=== PATIENT | female | born 1960 | race Caucasian/White ===

== ENCOUNTER → 2018-04-04 09:37 | Outpatient (CLI) | payer OTHER, SELFPAY ==
[2018-04-04 09:43] LABS: Mucous, Urine 0 SEEN /hpf (<or=2+); Red Blood Cells-Urine 0 SEEN /hpf (0-5)
[2018-04-04 12:29] LABS: Absolute Lymphocyte Count 3.18 X10^3/ul (0.83-4.51); Absolute Neutrophil Count 5.9 X10^3/uL (2.0-7.7); Basophil# 0.04 X10^3/uL; Basophil% 0.4 % (0-1); Eosinophil# 0.52 X10^3/uL; Hematocrit 43.8 % (37-47); Hemoglobin 14.6 g/dl (12.0-15.0); Lymphocyte # 3.18 X10^3/ul (4.0); Lymphocyte % 30.4 % (19-41); Mean Corp Hgb Conc 33.3 g/gl (32-36); Mean Corpuscular Hgb 28.7 pg (27.0-32.0); Mean Corpuscular Volume 86.1 fL (81-99); Mean Platelet Vol. 10.8 fl (6.2-12.0); Monocyte# 0.75 X10^3/uL; Monocyte% 7.2 % (0-10); Neutrophil # 5.94 X10^3/uL (2.7-7.7); Neutrophil % 56.7 % (47-70); Platelet Count 339 K/mm3 (150-450); RBC Distribution Width CV 12.6 % (11.6-14.6); RBC Distribution Width SD 39.7 fl (35.1-43.9); Red Blood Count 5.09 M/mm3 (4.2-5.4); White Blood Count 10.5 K/mm3 (4.4-11.0)
[2018-04-04 12:35] LABS: POSITIVE COUNT NO; POSITIVE DIFFERENTIAL NO; POSITIVE MORPHOLOGY NO
[2018-04-04 12:41] LABS: Color, Urine Yellow (Yellow); Glucose, Dipstick 1000 mg/dl (Normal); Ketone-Dipstick 15 mg/dl (Negative); Leukocyte Esterase-Dipstick Negative /ul (Negative); Nitrite-Dipstick Negative (Negative); Occult Blood-Urine Negative /ul (Negative); Protein-Dipstick Negative (Negative); Specific Gravity, Urine 1.015 (1.002-1.030); Urine Bilirubin Dipstick Negative (Negative); Urine Clarity Clear (Clear); Urine Urobilinogen Normal (Normal)
[2018-04-04 12:42] LABS: Hemoglobin A1c 12.9 % (4.2-6.3)
[2018-04-04 12:46] LABS: ALB/GLOB Ratio 1.1 RATIO (0.9-2.4); AST(SGOT) 19 U/L (15-37); Alanine Aminotransfer ALT/SGPT 67 U/L (13-56); Albumin, Serum 3.9 g/dL (3.2-5.0); Alkaline Phosphatase 141 U/L (45-117); Anion Gap 10 (5-15); BUN 10 mg/dL (7-18); BUN/Creat Ratio 11.2 RATIO (10-20); Calcium,Total 9.1 mg/dL (8.5-10.1); Chloride 97 mmol/L (98-107); Cholesterol 293 mg/dL (200); Creatinine, Serum 0.89 mg/dL (0.55-1.02); EST Glomerular Filtration Rate 69 mL/min (>60); Est Glom Filt Rate - Afr Amer 84 mL/min (>60); Ferritin 195 ng/mL (8-252); Globulin 3.7 g/dL (2.2-4.2); Glucose 385 mg/dL (74-106); High Density Lipoprotein 48 mg/dL; Magnesium 2.3 mg/dL (1.6-2.6); Potassium 4.1 mmol/L (3.5-5.1); Protein, Total 7.6 g/dL (6.4-8.2); Sodium Level 133 mmol/L (136-145); Thyroid Stim Hormone (TSH) 1.33 uIU/mL (0.358-3.74); Triglycerides 271 mg/dL; Very Low Density Lipoprotein 54 mg/dL (5-40)
[2018-04-04 12:49] LABS: Squamous Epithelial Cells - UA 0-5 SEEN /hpf (5-10); White Blood Cells 0-5 SEEN /hpf (0-5)
[2018-04-04 12:50] LABS: Bacteria 1+ /hpf (None Seen)
[2018-04-04 13:11] LABS: Microalbumin,Random Urine 6.4 mg/L (NO RANGE EST.); Microalbumin:Creatinine Ratio 15.9 mg/g CRE (<30 mg/g CRE)
== END ==
PROVIDERS: Family Provider Family Medicine; PCP Family Medicine; Visit Provider Family Medicine
DX: E11.9 Type 2 diabetes mellitus without complications (principal); G47.62 Sleep related leg cramps
CPT/HCPCS: 36415; 80053; 80061; 81001; 82043; 82570; 82728; 83036; 83735; 84443; 85025

== ENCOUNTER 2018-04-06 02:42 | Emergency (ER) | payer OTHER, SELFPAY ==
[2018-04-06 02:43] VITALS: BP 148/87; PULSE 86; RESP 17; TEMP 36.6; O2SAT 96; BMI 29.0
[2018-04-06] MEDS: predniSONE 20 MG Tablet 60 MG PO (02:59)
--- NOTE | 2018-04-06 03:07 | ED.VISSUMM ---
- ER Visit Summary Date of Service: 04/06/18 Chief Complaint: Rash History of Present Illness: The patient is a 57 F presenting with rash ?2 days. Patient states she started having a rash on her right leg. The rash has now spread to her trunk and upper extremities. She denies any new exposures other than drinking a new diet tea. She has had no new medications. She denies new soaps, detergents, lotions. She complains of itching all over. She denies fever. Denies difficulty breathing or swallowing. Physical Examination: Vitals are stable. Patient is afebrile. Alert no acute distress. HEENT exam is unremarkable. No mucous membrane lesions Neck is supple. Lungs are clear and equal bilaterally. Heart is regular rate and rhythm. Abdomen is soft nontender nondistended. Extremities are unremarkable. Skin is warm and dry. Diffuse blanchable maculopapular rash trunk and upper extremities. No petechiae or purpura. No focal neurologic deficit. Remainder of exam is unremarkable. Emergency Department Course and Treatment: Patient is given prednisone. She is advised to monitor blood sugar while on prednisone. She is advised to follow-up with her primary care physician at scheduled appointment on Sunday. Advised to return to the ED for worsening complaints. Disposition: Discharge home Impression: Generalized rash This note was generated with [employer] dictation software. It may contain incorrect words, spelling, and punctuation that were not noted in review of the chart prior to signing ED Disposition - Plan for ED Patient: Chief Complaint: Rash Referrals: Tommy Rothman MD [Primary Care Provider] -
--- NOTE | 2018-04-06 03:13 | ED.DEP ---
ED Disposition - Plan for ED Patient: Chief Complaint: Rash Instructions: ED Dermatitis Contact Prescriptions: Prednisone [Deltasone] 20 mg PO DAILY #5 tablet Referrals: Tommy Rothman MD [Primary Care Provider] -
== END 2018-04-06 03:19 | disposition home or self-care (01) ==
LOC: ED 03:01
PROVIDERS: Emergency Provider Emergency Medicine; Family Provider Family Medicine; PCP Family Medicine
DX: R21 Rash and other nonspecific skin eruption (principal); E11.9 Type 2 diabetes mellitus without complications; Z79.84 Long term (current) use of oral hypoglycemic drugs
CPT/HCPCS: 99283

== ENCOUNTER → 2018-04-09 08:52 | Outpatient (CLI) | payer OTHER, SELFPAY ==
[2018-04-10 11:21] LABS: HEPATITIS B SURFACE AG Negative (Negative); Hep B Surface Antibodies Non Reactive (.); Hep C Antibodies <0.1 s/co ratio (0.0-0.9)
== END ==
PROVIDERS: Family Provider Family Medicine; PCP Family Medicine; Visit Provider Family Medicine
DX: R94.5 Abnormal results of liver function studies (principal)
CPT/HCPCS: 36415; 86706; 86803; 87340

== ENCOUNTER → 2018-06-24 08:33 | Outpatient (CLI) | payer OTHER, SELFPAY ==
[2018-06-24 12:38] LABS: Hemoglobin A1c 8.5 % (4.2-6.3)
[2018-06-24 12:48] LABS: ALB/GLOB Ratio 1.2 RATIO (0.9-2.4); AST(SGOT) 80 U/L (15-37); Alanine Aminotransfer ALT/SGPT 151 U/L (13-56); Albumin, Serum 3.8 g/dL (3.2-5.0); Alkaline Phosphatase 121 U/L (45-117); Anion Gap 11 (5-15); BUN 18 mg/dL (7-18); BUN/Creat Ratio 23.9 RATIO (10-20); Calcium,Total 9.1 mg/dL (8.5-10.1); Chloride 103 mmol/L (98-107); Cholesterol 189 mg/dL (200); Creatinine, Serum 0.75 mg/dL (0.55-1.02); EST Glomerular Filtration Rate 84 mL/min (>60); Est Glom Filt Rate - Afr Amer 102 mL/min (>60); Globulin 3.1 g/dL (2.2-4.2); Glucose 97 mg/dL (74-106); High Density Lipoprotein 57 mg/dL; Protein, Total 6.9 g/dL (6.4-8.2); Sodium Level 140 mmol/L (136-145); Triglycerides 156 mg/dL; Very Low Density Lipoprotein 31 mg/dL (5-40)
== END ==
LOC: LABSPEC 08:33 → MFPLAB 08:33
PROVIDERS: Family Provider Family Medicine; PCP Family Medicine; Visit Provider Family Medicine
DX: E11.9 Type 2 diabetes mellitus without complications (principal); E78.5 Hyperlipidemia, unspecified
CPT/HCPCS: 36415; 80053; 80061; 83036

== ENCOUNTER → 2018-07-03 08:22 | Outpatient (CLI) | payer OTHER, SELFPAY ==
--- NOTE | 2018-07-03 08:25 | US_ITS ---
STUDY: ABDOMINAL ULTRASOUND - RIGHT UPPER QUADRANT REASON FOR VISIT: Female, 57 years old. Elevated liver function tests. TECHNIQUE: Ultrasound evaluation of the right upper quadrant was performed with real-time and static burns-scale imaging. TECHNICAL QUALITY: Adequate. COMPARISON: None. FINDINGS: Liver: The liver measures 15 cm. There is normal echogenicity of the liver. The bile ducts are within normal limits. There is hepatic color flow. The direction of portal flow is hepatopetal. There is no demonstrated mass lesion. Gallbladder: Normal distended gallbladder. The gallbladder wall measures 2.9 mm. There is a negative sonographic Rosales's sign. There is no pericholecystic fluid. There is sludge within the gallbladder lumen. There are multiple polyps. The largest measures 0.9 x 0.5 cm. Common Bile Duct (C.B.D.): The common bile duct measures 2.6 mm. Pancreas: Normal size of the head, body and proximal tail of the pancreas. There is normal echogenicity of the pancreas. There is no demonstrated pancreatic mass or cyst. Right Kidney: Normal size of the right kidney. The right kidney measures 11.3 cm. 1.6 The right cortex measures cm. There is no demonstrated renal mass or cyst. There is no right hydronephrosis. US/Liver IMPRESSION: 1. Multiple polyps versus adherent stones as well as sludge within the gallbladder. There is no evidence of acute cholecystitis. 2. No other sonographic evidence of right upper quadrant abnormality. Electronically Signed: Myron Sharma DO at 22:39 EST Tel [phone], Service support ,
== END ==
PROVIDERS: Family Provider Family Medicine; PCP Family Medicine; Referring Provider Family Medicine; Visit Provider Family Medicine
DX: R94.5 Abnormal results of liver function studies (principal)
CPT/HCPCS: 76705

== ENCOUNTER 2018-08-16 07:48 | Day surgery (SDC) | payer OTHER, SELFPAY ==
[2018-08-09 07:35] VITALS: BMI 30.2
--- NOTE | 2018-08-14 10:08 | EKG12_ITS ---
Test Reason : PRE-OP Blood Pressure : / mmHG Vent. Rate : 062 BPM Atrial Rate : 062 BPM P-R Int : 176 ms QRS Dur : 084 ms QT Int : 432 ms P-R-T Axes : 026 032 060 degrees QTc Int : 438 ms Normal sinus rhythm Normal ECG Confirmed by NGA STEVENSON, SUBHA ([id number]), editor index RADHA LÓPEZ ([id number]) on 08/15/2018 4:01:37 PM Referred By: Jose Storm Confirmed By:SUBHA SYLVESTER MD
[2018-08-14 11:38] LABS: Hemoglobin 13.2 g/dl (12.0-15.0); Mean Corp Hgb Conc 32.2 g/gl (32-36); Mean Corpuscular Hgb 28.4 pg (27.0-32.0); Mean Corpuscular Volume 88.4 fL (81-99); Mean Platelet Vol. 10.4 fl (6.2-12.0); Platelet Count 334 K/mm3 (150-450); RBC Distribution Width CV 12.4 % (11.6-14.6); RBC Distribution Width SD 39.1 fl (35.1-43.9); Red Blood Count 4.64 M/mm3 (4.2-5.4); Scan Indicated on CBC? Y/N NO
[2018-08-14 11:43] LABS: International Normalized Ratio 0.9
[2018-08-14 11:44] LABS: Partial Thromboplast Time 32.3 Seconds (24.1-36.2)
[2018-08-14 12:05] LABS: Hemoglobin A1c 7.2 % (4.2-6.3)
[2018-08-14 12:18] LABS: AST(SGOT) 45 U/L (15-37); Alanine Aminotransfer ALT/SGPT 99 U/L (13-56); Alkaline Phosphatase 106 U/L (45-117); Anion Gap 6 (5-15); BUN 17 mg/dL (7-18); BUN/Creat Ratio 26.4 RATIO (10-20); Bilirubin, Direct 0.07 mg/dL (0.00-0.30); Chloride 104 mmol/L (98-107); Creatinine, Serum 0.64 mg/dL (0.55-1.02); EST Glomerular Filtration Rate 101 mL/min (>60); Est Glom Filt Rate - Afr Amer 122 mL/min (>60); Globulin 3.5 g/dL (2.2-4.2); Glucose 135 mg/dL (74-106); Potassium 4.2 mmol/L (3.5-5.1); Protein, Total 7.5 g/dL (6.4-8.2); Sodium Level 138 mmol/L (136-145)
[2018-08-16] VITALS (14 sets, daily range): BP systolic 92–129; BP diastolic 49–94; PULSE 56–70; RESP 10–16; TEMP 36.2–36.8; O2SAT 91–100
[2018-08-16 08:31] LABS: Bedside Glucose 140 mg/dL (70-110)
[2018-08-16] MEDS: Cefazolin 2 GM in 0.9% Normal Saline 100 ML IV (09:28)
--- NOTE | 2018-08-16 09:42 | DCINST_ITS ---
Discharge Diet: Light diet - advance as tolerated Discharge Activity: May Not Drive - for 2-3 days or while taking narcotic pain medications., - - Do not drive, work heavy equipment or sign legal documents for 24 hours. May shower in (days): 1 - with the bandage in place. Additional Activity Instructions:: Pain medication may cause nausea. You should typically eat light foods as you take your pain medications. Pain medication may also cause constipation. If this is a problem for you, please discuss with your doctor. Call your doctor if your incision/area has: Continuous Slow Oozing, Sudden Increased Bleeding, Increased Pain/ Swelling, Increased Redness, Foul Smelling Discharge Call your doctor if you observe: Fever of 101 or Higher Suture Line Care: Avoid Pulling/Pushing, Avoid Pinching/Bending Additional Dressing/Incision Instructions:: Leave operative bandaids on for 2 days. When you remove dressing, leave Steri-Strips on until your follow-up appointment, or until the Steri-Strips fall off on their own. Allergies/Adverse Reactions: Allergies acetaminophen [From Vicodin] Adverse Reaction (Verified 08/14/18 08:09) Nausea hydrocodone [From Vicodin] Adverse Reaction (Verified 08/14/18 08:09) Nausea oxycodone [From Percocet] Adverse Reaction (Verified 08/14/18 08:09) Nausea Medications to take at Discharge Metformin HCl 500 mg PO DAILY 04/06/18 insulin degludec (U-200) 200 unit/mL (3 mL) subcutaneous pen 10 unit SC DAILY 08/09/18 rosuvastatin 20 mg tablet 20 mg PO DAILY 08/09/18 sumatriptan 50 mg tablet 50 mg PO ONCE 08/09/18 Acetaminophen/Codeine #3 [Tylenol#3] 1 - 2 tab PO Q4H PRN PRN 5 Days #30 tab 08/16/18 The following prescriptions were given: Acetaminophen/Codeine #3 [Tylenol#3] 1 - 2 tab PO Q4H PRN PRN 5 Days #30 tab PRN Reason: Pain Orders to be completed after discharge: 12 Lead EKG [[facility]] Time Frame: 08/14/18, Facility: [facility], Location: Cardiovascular Services Partial Thromboplast Time Time Frame: 08/14/18, Location: Laboratory Hemoglobin A1c Time Frame: 08/14/18, Location: Laboratory Basic Metabolic Profile (BMP) Time Frame: 08/14/18, Location: Laboratory CBC-Complete Blood Cnt No Diff Time Frame: 08/14/18, Location: Laboratory Liver Profile Time Frame: 08/14/18, Location: Laboratory Prothrombin Time w/INR Time Frame: 08/14/18, Location: Laboratory Primary Care Physician: Tommy Rothman MD [Primary Care Provider] - Test Results: Test results from this visit will be discussed in further detail at your follow- up appointment, if applicable. Please Follow Up With: Jose Storm MD - Please call [phone] to schedule an appointment. When: 7 days after your surgery.
--- NOTE | 2018-08-16 09:44 | OP.PCM_ITS ---
Problem List (1) Calculus of gallbladder with chronic cholecystitis without obstruction Status: Chronic Report of Operation Date of Procedure: 08/16/18 Pre-Operative Diagnosis: Calculus of the gallbladder with chronic cholecystitis without obstruction Post-Operative Diagnosis: Same Surgery/Procedure Performed:: Laparoscopic cholecystectomy Type of Anesthesia:: General Anesthesiologist: Shin Ferguson Estimated Blood Loss (mL): < 25 CC Fluids Replaced: 700 CC LR Description of Procedure: Patient was brought into the operating room. Placed in the supine position. Under excellent general endotracheal intubation the abdomen was sterilely prepped and draped in the usual fashion. Local was injected in for umbilically. Dissection was carried down to the fascia. The fascia was grasped with a [place]. Varies needle was placed inside the abdomen. The abdomen was insufflated to 15 torr. A 10/12 trocar was placed without difficulty. Patient was placed in the head up and rotated to the left position. Subxiphoid #5 trochars placed, inferior to this another #5 trocar, and laterally a #5 trocar was placed. All of these under direct visualization without injury to underlying structures. Fundus of the gallbladder was grasped and retracted in cephalad direction. The infundibulum was grasped retracted laterally. I dissected out the cystic duct. I placed hemoclips proximally distally and ligated the duct. Identified the cystic artery. Place hemoclips proximal distally and ligated the artery. Deliver the gallbladder from the gallbladder bed with use of electrocautery. Had excellent hemostasis. I placed a specimen a specimen bag delivered through the umbilical port without difficulty. I had no spillage of bile or stones. I reinflated the abdomen. I inspected the liver bed. I used electrocautery for good hemostasis. I would remove the trochars under direct visualization. Good hemostasis was noted. The fascia the umbilical port was closed with a [id number] stitch of 0 Vicryl. Skin incisions were closed with septicum stitches of 4-0 Monocryl. Steri-Strips are applied sterile dressings were applied. Patient tolerated the procedure well. - Admit VTE Documentation VTE Present on Admission: No VTE Mechan Device Prophylaxis: SCD's VTE Pharm Prophylaxis ordered?: No Reason prophylaxis not ordered:: Treatment Not Indicated
--- NOTE | 2018-08-16 09:50 | GALL_PTH ---
PATIENT: LINDA GALE LOC: [facility] [place] U#:[id number] AGE/SX: 57/F ROOM: RE08/16/[address]: Dr. Jose Storm MD : [id number] BED: DIS: 08/16/2018 SPEC #: [id number] RECD: 08/16/18 11:11 STATUS: RICHI JOSE #: [id number] JOÃO: 08/16/18 09:[address]: Jose Storm DEPT: SURGICAL PATHOLOGY RECD BY: Frantz Madsen ENTERED: 08/16/18 12:14 SP TYPE: JUN CASTAÑEDA DR: Dr. Tommy Rothman MD Tissues: Gallbladder, NOS Procedures: Surgery Specimen Level III HEADER OPERATION: Laparoscopic cholecystectomy PRE-OP DIAGNOSIS: Cholelithiasis, cholecystitis TISSUE SUBMITTED: Gallbladder and contents MICROSCOPIC DIAGNOSIS Gallbladder, cholecystectomy: Cholesterolosis, chronic cholecystitis and cholelithiasis. AM:jesus 1/21/19 MICROSCOPIC DESCRIPTION Slides are reviewed. GROSS DESCRIPTION Received is one container labeled with the patient's name and designated gallbladder. The specimen consists of a gallbladder measuring 5.6 x 2.3 x 2.3 cm. The external surface is smooth and glistening. Focally, it is granular, hemorrhagic and contains cautery artifact. The lumen of the gallbladder contains yellow-green mucoid bile and multiple black stones ranging in size 0.1 to 3 cm. The mucosa is bile-stained and without any mass lesions. The gallbladder wall averages 0.2 cm in thickness and is free of mass lesions. Sap Basis sections of the gallbladder and the cystic duct are submitted in one cassette. / AM:sp 08/17/18 TC: 3 CPT: 68030
[2018-08-16] MEDS: Bupivacaine Mpf 0.5% 30 ML VIAL (10:16)
--- NOTE | 2018-08-16 10:43 | SUR.PHASEI ---
PULSE OX 19 ON ARRIVAL TO PACU, ANESTHETIA ASSISTED BREATHING WITH AMBUBAG CONNECTED TO O2 AT 15L UNTIL PT BREATHING SPONTANEOUS. PT IS CURRENTLY ON A NON-REBREATHER AT 10L, PULSE OX 98%. NEEDS OCCASIONAL REMINDER TO TAKE DEEP BREATH.
--- OUTSIDE RECORDS SUMMARY | 2018-10-20 14:45 | XMS RPT_ITS ---
:1960 Demographics Address [address] [place] [address] Preferred Language [facility]- Marital Status Unknown Anabaptist Affiliation Unknown Race Ethnic Group Unknown Author Organization OHIP Support Name Relationship Address Phone EVELIA ANUEL Unavailable [address] + [place] [address] GOJO Unavailable [address] + [place] [address] NAMAN GALEA Unavailable [address] + [place] [address] EVELIA, ANUEL Unavailable [address] + [place] [address] GOJO Unavailable [address] + [place] [address] SHAHLA XOCHITL Unavailable [address] + [place] [address] EVELIA, ANUEL Unavailable [address] + [place] [address] GOJO Unavailable [address] + [place] [address] SHAHLA XOCHITL Unavailable [address] + [place] [address] EVELIA, ANUEL Unavailable [address] + [place] [address] GOJO Unavailable [address] + [place] [address] SHAHLA XOCHITL Unavailable [address] + [place] [address] EVELIA, ANUEL Unavailable . + [place] [address] GOJO Unavailable [address] + [place] [address] EVELIA, ANUEL Unavailable Unavailable + [place] [address] GOJO Unavailable [address] + [place] [address] EVELIA, ANUEL Unavailable / + [place] [address] GOJO Unavailable [address] + [place] [address] EVELIA, ANUEL Unavailable / + [place] [address] GOJO Unavailable [address] + [place] [address] EVELIA, ANUEL Unavailable / + [place] [address] GOJO Unavailable [address] + [place] [address] VEELIA, ANUEL Unavailable / + [place] [address] GOJO Unavailable [address] + [place] [address] Care Team Providers Name Role Phone Jose Storm Attending Unavailable Tommy Rothman Referring Unavailable Jose Storm Attending Unavailable Jose Storm Referring Unavailable Tommy Rothman Primary Care Unavailable Jose Storm Attending Unavailable Jose Storm Referring Unavailable Tommy Rothman Primary Care Unavailable Jose Storm Consulting Unavailable Ruma Leon PA-C Attending Unavailable Tommy Rothman Referring Unavailable Kareem Sylvester Attending Unavailable Jose Storm Referring Unavailable Tommy Rothman Attending Unavailable Tommy Rothman Primary Care Unavailable Tommy Rothman Primary Care Unavailable Ammy Bennett Attending Unavailable Tommy Rothman Attending Unavailable Tommy Rothman Primary Care Unavailable Tommy Rothman Attending Unavailable Tommy Rothman Primary Care Unavailable Tommy Rothman Attending Unavailable Tommy Rothman Referring Unavailable Tommy Rothman Primary Care Unavailable PROBLEMS PROBLEMS DATE TYPE CONDITION / CODE ATTENDING STATUS SOURCE 08/16/2018 Unknown K80.10 - Calculus of Jose Storm Active [place] gallbladder with [facility] cholecystitis Repository without obstruction / K80.10(ICD-10) 08/23/2018 Unknown Z01.810 - Encounter Kareem Sylvester Active [place] for preprocedural [facility] examination / Repository Z01.810(ICD-10) PROCEDURES PROCEDURES No Procedure Records FoundRESULTS RESULTS SURGERY VISIT REPORT Observed: 08/22/2018 Status: F Source: [place] 2:32 PM [facility] REPOSITORY [facility] [address] [place] [address]. [address] [place] [address] OFFICE VISIT Date of Service: 08/22/18 MR#: [id number] Acct: [id number] Name: LEANA GALE Rep #: [id number] : 1960 Provider: Ruma Leon PA-C Age/Sex: 57/F Location: [facility] [place] Status: Signed Intake Intake Visit Reasons: Gall Bladder Surgery DP 08/16 Chief Complaint: right abd pain, diarrhea Panelbeater Required: No Is patient in pain?: No Allergies acetaminophen [From Vicodin] Adverse Reaction (Verified 08/22/18 13:23) Nausea hydrocodone [From Vicodin] Adverse Reaction (Verified 08/22/18 13:23) Nausea oxycodone [From Percocet] Adverse Reaction (Verified 08/22/18 13:23) Nausea Medications Metformin HCl 500 mg PO DAILY 04/06/18 [History Confirmed 08/22/18] insulin degludec (U-200) 200 unit/mL (3 mL) subcutaneous pen 10 unit SC DAILY 08/09/18 [History Confirmed 08/22/18] rosuvastatin 20 mg tablet 20 mg PO DAILY 08/09/18 [History Confirmed 08/22/18] sumatriptan 50 mg tablet 50 mg PO ONCE 08/09/18 [History Confirmed 08/22/18] Subjective Details: Patient is a 57 y/o female I am following for cholelithiasis and cholecystitis. Dr. Storm performed a laparoscopic cholecystectomy on 08/16/18. Patient tolerated the procedure well. Pathology demonstrated chronic cholecystitis and cholelithiasis. Patient notes minimal amount of incisional discomfort. Patient denies nausea, vomiting, fever. She notes occasional loose stools. Objective Details: Abdomen- soft, nontender. Incisions c/d/i. No erythema or infection noted. Assessment AND Plan Problems 1. Calculus of gallbladder with chronic cholecystitis without obstruction K80.10 Plan - Recommend no lifting greater than 30 pounds for 2 weeks - RTW letter was faxed to RTW on 09/09/18 - Follow-up as needed Coding Level of Care Code Global Post Op Diagnoses Calculus of gallbladder with chronic cholecystitis without obstruction K80.10 08/22/18 1432 <Electronically signed by Ruma Leon PA-C> Date Ruma Leon PA-C Cosigner Signature: Date (if applicable) CC: Tommy Rothman MD OPERATIVE REPORT Observed: 08/16/2018 Status: F Source: [place] 10:09 [facility] REPOSITORY [facility] Medical Records Department [address] [place] [address] Operative Report 08/16/18 0942 MR#: [id number] Acct: [id number] Name: LEANA GALE Rep #: [id number] : 1960 57 From: Jose Storm MD PCP: Tommy Rothman MD Status: REG [facility] Y Location: [place] [address] Problem List (1) Calculus of gallbladder with chronic cholecystitis without obstruction Status: Chronic Report of Operation Date of Procedure: 08/16/18 Pre-Operative Diagnosis: Calculus of the gallbladder with chronic cholecystitis without obstruction Post-Operative Diagnosis: Same Surgery/Procedure Performed:: Laparoscopic cholecystectomy Type of Anesthesia:: General Anesthesiologist: Shin Ferguson Estimated Blood Loss (mL): < 25 CC Fluids Replaced: 700 CC LR Description of Procedure: Patient was brought into the operating room. Placed in the supine position. Under excellent general endotracheal intubation the abdomen was sterilely prepped and draped in the usual fashion. Local was injected in for umbilically. Dissection was carried down to the fascia. The fascia was grasped with a Bowen. Varies needle was placed inside the abdomen. The abdomen was insufflated to 15 torr. A 10/12 trocar was placed without difficulty. Patient was placed in the head up and rotated to the left position. Subxiphoid #5 trochars placed, inferior to this another #5 trocar, and laterally a #5 trocar was placed. All of these under direct visualization without injury to underlying structures. Fundus of the gallbladder was grasped and retracted in cephalad direction. The infundibulum was grasped retracted laterally. I dissected out the cystic duct. I placed hemoclips proximally distally and ligated the duct. Identified the cystic artery. Place hemoclips proximal distally and ligated the artery. Deliver the gallbladder from the gallbladder bed with use of electrocautery. Had excellent hemostasis. I placed a specimen a specimen bag delivered through the umbilical port without difficulty. I had no spillage of bile or stones. I reinflated the abdomen. I inspected the liver bed. I used electrocautery for good hemostasis. I would remove the trochars under direct visualization. Good hemostasis was noted. The fascia the umbilical port was closed with a [id number] stitch of 0 Vicryl. Skin incisions were closed with septicum stitches of 4-0 Monocryl. Steri-Strips are applied sterile dressings were applied. Patient tolerated the procedure well. - Admit VTE Documentation VTE Present on Admission: No VTE Mechan Device Prophylaxis: SCD's VTE Pharm Prophylaxis ordered?: No Reason prophylaxis not ordered:: Treatment Not Indicated 08/16/18 1009 <Electronically signed by Jose Storm MD> Date Jose Storm MD CC: Jose Storm MD; Tommy Rothman MD Signed GALLBLADDER Observed: 08/16/2018 Status: F Source: [place] 9:50 AM [facility] [place] Patient: LEANA GALE : 1960 (57/F) Acct Num: [id number] Phys: Jose Storm MD Unit Num: [id number] Loc: [facility] Specimen: [id number] Received: 08/16/18 - 1111 Spec Type: GALLBLADDE TISSUES 1 TISSUES: Gallbladder, NOS GROSS DESCRIPTION Received is one container labeled with the patient's name and designated gallbladder. The specimen consists of a gallbladder measuring 5.6 x 2.3 x 2.3 cm. The external surface is smooth and glistening. Focally, it is granular, hemorrhagic and contains cautery artifact. The lumen of the gallbladder contains yellow-green mucoid bile and multiple black stones ranging in size 0.1 to 3 cm. The mucosa is bile-stained and without any mass lesions. The gallbladder wall averages 0.2 cm in thickness and is free of mass lesions. Lining Layer sections of the gallbladder and the cystic duct are submitted in one cassette. / AM:jesus 08/17/18 TC: 3 CPT: 17876 HEADER OPERATION: Laparoscopic cholecystectomy PRE-OP DIAGNOSIS: Cholelithiasis, cholecystitis TISSUE SUBMITTED: Gallbladder and contents MICROSCOPIC DESCRIPTION Slides are reviewed. MICROSCOPIC DIAGNOSIS Gallbladder, cholecystectomy: Cholesterolosis, chronic cholecystitis and cholelithiasis. AM:jesus 08/19/18 Signed Mateusz Simpson DO 08/19/18 <signature on file> Performed By: #### PGALL #### [facility] [address] [facility] [place], [address] DISCHARGE INSTRUCTION Observed: 08/16/2018 Status: F Source: [place] 9:42 AM [facility] [place] [facility] Medical Records Department [address] [place] [address] Instructions for Home/Discharge Instructions 08/16/18 0941 MR#: [id number] Acct: [id number] Name: LEANA GALE Rep #: [id number] : 1960 57 From: Jose Storm MD PCP: Tommy Rothman MD Status: REG [facility] Discharge Diet: Light diet - advance as tolerated Discharge Activity: May Not Drive - for 2-3 days or while taking narcotic pain medications., - - Do not drive, work heavy equipment or sign legal documents for 24 hours. May shower in (days): 1 - with the bandage in place. Additional Activity Instructions:: Pain medication may cause nausea. You should typically eat light foods as you take your pain medications. Pain medication may also cause constipation. If this is a problem for you, please discuss with your doctor. Call your doctor if your incision/area has: Continuous Slow Oozing, Sudden Increased Bleeding, Increased Pain/ Swelling, Increased Redness, Foul Smelling Discharge Call your doctor if you observe: Fever of 101 or Higher Suture Line Care: Avoid Pulling/Pushing, Avoid Pinching/Bending Additional Dressing/Incision Instructions:: Leave operative bandaids on for 2 days. When you remove dressing, leave Steri-Strips on until your follow-up appointment, or until the Steri-Strips fall off on their own. Allergies/Adverse Reactions: Allergies acetaminophen [From Vicodin] Adverse Reaction (Verified 08/14/18 08:09) Nausea hydrocodone [From Vicodin] Adverse Reaction (Verified 08/14/18 08:09) Nausea oxycodone [From Percocet] Adverse Reaction (Verified 08/14/18 08:09) Nausea Medications to take at Discharge Metformin HCl 500 mg PO DAILY 04/06/18 insulin degludec (U-200) 200 unit/mL (3 mL) subcutaneous pen 10 unit SC DAILY 08/09/18 rosuvastatin 20 mg tablet 20 mg PO DAILY 08/09/18 sumatriptan 50 mg tablet 50 mg PO ONCE 08/09/18 Acetaminophen/Codeine #3 [Tylenol#3] 1 - 2 tab PO Q4H PRN PRN 5 Days #30 tab 08/16/18 The following prescriptions were given: Acetaminophen/Codeine #3 [Tylenol#3] 1 - 2 tab PO Q4H PRN PRN 5 Days #30 tab PRN Reason: Pain Orders to be completed after discharge: 12 Lead EKG [CVS] Time Frame: 08/14/18, Facility: [facility], Location: Cardiovascular Services Partial Thromboplast Time Time Frame: 08/14/18, Location: Laboratory Hemoglobin A1c Time Frame: 08/14/18, Location: Laboratory Basic Metabolic Profile (BMP) Time Frame: 08/14/18, Location: Laboratory CBC-Complete Blood Cnt No Diff Time Frame: 08/14/18, Location: Laboratory Liver Profile Time Frame: 08/14/18, Location: Laboratory Prothrombin Time w/INR Time Frame: 08/14/18, Location: Laboratory Primary Care Physician: Tommy Rothman MD [Primary Care Provider] - Test Results: Test results from this visit will be discussed in further detail at your follow-up appointment, if applicable. Please Follow Up With: Jose Storm MD - Please call [phone] to schedule an appointment. When: 7 days after your surgery. 08/16/18 0942 <Electronically signed by Jose Storm MD> Date Jose Storm MD CC: Tommy Rothman MD Signed BEDSIDE GLUCOSE Collected: 08/16/2018 Status: F Source: [place] 8:16 AM [facility] [place] TYPE CODE TESTS RESULT OUT OF REFERENCE UNITS RANGE LAB L501.080 70-110 mg/dL High BEDSIDE GLU 140 Result Comment: MANAGEMENT OF PATIENT CARE PER NURSING PROTOCOL Performed By: #### L501.080 #### [facility] Point of Care [address] [place] [address] 12 LEAD ELECTROCARDIOGRAM Observed: 08/15/2018 Status: F Source: [place] 4:02 PM [facility] [place] [facility] Cardiovascular Services [address] [place] [address] 12 Lead EKG 08/14/18 1016 MR#: [id number] Acct: [id number] Name: LEANA GALE Rep #: [id number] : 1960 57 From: Kareem Sylvester MD Attending Dr: Jose Storm MD Status: PRE SD Ordering Dr: Jose Storm MD Date: 08/14/18 Location: [facility] Sex: F C Admitted: Test Reason : PRE-OP Blood Pressure : / mmHG Vent. Rate : 062 BPM Atrial Rate : 062 BPM P-R Int : 176 ms QRS Dur : 084 ms QT Int : 432 ms P-R-T Axes : 026 032 060 degrees QTc Int : 438 ms Normal sinus rhythm Normal ECG Confirmed by NGA STEVENSON, KAREEM ([id number]), newspaper copy editor RADHA LÓPEZ ([id number]) on 08/15/2018 4:01:37 PM Referred By: Jose Storm Confirmed By:KAREEM SYLVESTER MD 08/15/18 4863 Date Kareem Sylvester MD CC: Jose Storm MD; Tommy Rothman MD Signed CBC-COMPLETE BLOOD CNT Collected: 08/14/2018 Status: F Source: [place] NO DIFF 10:03 AM [facility] [place] TYPE CODE TESTS RESULT OUT OF RANGE REFERENCE UNITS LAB L100.1000 4.4-11.0 K/mm3 Normal WBC 9.0 LAB L100.1200 4.2-5.4 M/mm3 Normal RBC 4.64 LAB L100.1300 12.0-15.0 g/dl Normal HGB 13.2 LAB L100.1400 37-47 % Normal HCT 41.0 LAB L100.1500 81-99 fL Normal MCV 88.4 LAB L100.1600 27.0-32.0 pg Normal MCH 28.4 LAB L100.1700 32-36 g/gl Normal MCHC 32.2 LAB L100.1810 11.6-14.6 % Normal RDW CV 12.4 LAB L100.1820 35.1-43.9 fl Normal RDW SD 39.1 LAB L100.1900 150-450 K/mm3 Normal PLT 334 LAB L100.2000 6.2-12.0 fl Normal MPV 10.4 Performed By: #### L100.0500 #### [facility] [address] [place], [place], [address] PROTHROMBIN TIME W/INR Collected: 08/14/2018 Status: F Source: [place] 10:03 AM [facility] [place] TYPE CODE TESTS RESULT OUT OF RANGE REFERENCE UNITS LAB L300.4150 11.7-14.9 SECONDS Normal PROTIME 12.0 LAB L300.4200 Normal INR 0.9 Performed By: #### L300.3900, L300.4310 #### [facility] [address] [place], [address] PARTIAL THROMBOPLAST Collected: 08/14/2018 Status: F Source: [place] TIME 10:03 AM [facility] [place] TYPE CODE TESTS RESULT OUT OF RANGE REFERENCE UNITS LAB L300.4310 24.1-36.2 Seconds Normal PTT 32.3 Performed By: #### L300.3900, L300.4310 #### [facility] [address] [place], [address] HEMOGLOBIN A1C Collected: 08/14/2018 Status: F Source: [place] 10:03 AM [facility] [place] TYPE CODE TESTS RESULT OUT OF RANGE REFERENCE UNITS LAB L501.9985 4.2-6.3 % High HGB A1C 7.2 Performed By: #### L501.9985 #### [facility] [address] [place], [place], [address] BASIC METABOLIC Collected: 08/14/2018 Status: F Source: [place] PROFILE (BMP) 10:03 AM [facility] [place] TYPE CODE TESTS RESULT OUT OF RANGE REFERENCE UNITS LAB L501.0100 74-106 mg/dL High GLU 135 Result Comment: Fasting Glucose result greater than or equal to 126 mg/dL suggests DIABETES MELLITUS per A.D.A. criteria. Please note revised GLUCOSE reference range effective 2017. LAB L501.1000 7-18 mg/dL Normal BUN 17 LAB L501.1100 0.55-1.02 mg/dL Normal CREAT,SERUM 0.64 Result Comment: The validity of the calculated GFR AND GFRAA in patients over 70 years has not been determined. Clinical correlation is essential. LAB L501.1110 >60 mL/min Normal EST GFR 101 Result Comment: Non- GFR Calc LAB L501.1115 >60 mL/min Normal EST GFR - AA 122 Result Comment: GFR Calc LAB L501.1300 10-20 RATIO High BUN/CRE 26.4 LAB L501.2200 8.5-10.1 mg/dL CA Normal 9.0 LAB L501.5300 136-145 mmol/L NA Normal 138 LAB L501.5600 3.5-5.1 mmol/L K Normal 4.2 LAB L501.5900 98-107 mmol/L CL Normal 104 LAB L501.6100 21.0-32.0 mmol/L Normal CO2 28.0 LAB L501.6200 5-15 Normal GAP 6 Performed By: #### L500.2500, L500.3400 #### [facility] [address] [place], [place], [address] LIVER PROFILE Collected: 08/14/2018 Status: F Source: [place] 10:03 AM [facility] [place] TYPE CODE TESTS RESULT OUT OF RANGE REFERENCE UNITS LAB L501.1500 6.4-8.2 g/dL Normal T PROT 7.5 LAB L501.1800 3.2-5.0 g/dL Normal ALB 4.0 LAB L501.1950 2.2-4.2 g/dL Normal GLOB 3.5 LAB L501.4100 15-37 U/L High AST 45 LAB L501.4305 45-117 U/L Normal ALK P 106 LAB L501.4405 13-56 U/L High ALT 99 LAB L501.4600 0.20-1.00 mg/dL Normal T BILI 0.30 LAB L501.4700 0.00-0.30 mg/dL Normal D BILI 0.07 Performed By: #### L500.2500, L500.3400 #### [facility] [address] [facility] [place], [address] SURGERY VISIT REPORT Observed: 08/09/2018 Status: F Source: [place] 7:44 AM [facility] [address] [facility] [place] [address] OFFICE VISIT Date of Service: 08/09/18 MR#: [id number] Acct: [id number] Name: LEANA GALE Rep #: [id number] : 1960 Provider: Jose Storm MD Age/Sex: 57/F Location: [facility] Status: Signed Intake Vital Signs08/09/18 Height 5 ft 4 in 08/09/18 Weight: 176 lb 6 oz 08/09/18 Body Mass Index (BMI) 30.2 08/09/18 Blood Pressure 126/82 H Intake Visit Reasons: Symptomatic Cholelithasis US 07/03 [facility] Chief Complaint: right abd pain, diarrhea Panelbeater Required: No Is patient in pain?: No Allergies No Known Allergies Allergy (Verified 08/09/18 07:36) Medications Metformin HCl 500 mg PO DAILY 04/06/18 [History Confirmed 08/09/18] insulin degludec (U-200) 200 unit/mL (3 mL) subcutaneous pen 10 unit SC QHS 08/09/18 [History Confirmed 08/09/18] rosuvastatin 20 mg tablet 20 mg PO DAILY 08/09/18 [History Confirmed 08/09/18] sumatriptan 50 mg tablet 50 mg PO ONCE 08/09/18 [History Confirmed 08/09/18] Is last menstrual period known: No Post menopausal: Yes Patient : No PFSH Medical History Diabetes (Acute) Gallbladder polyp (Acute) Hyperlipidemia (Acute) Migraine (Acute) Surgical History History of bladder repair surgery (Acute) History of colonoscopy (Acute 2016) History of esophagogastroduodenoscopy (EGD) (Acute) History of hysterectomy (Acute) History of lumpectomy of right breast (Acute) Family History Father Diabetes Grandmother Colon cancer Sister Cancer thyroid Mother Alzheimer disease Social History Smoking Status: Never smoker HPI HPI HPI: LEANA GALE, is a 57 F who presents to the office today for evaluation of symptomatic cholelithiasis. Patient states for actually many years she has had difficulty with right upper quadrant and epigastric abdominal pain particularly after she has been eating greasy foods. She notes occasional diarrhea as well. She was seen by her primary care physician who ordered some liver function tests and noted that those were abnormal this propagated a gallbladder ultrasound which was completed at [facility] on 07/03/2018 this showed there to be a normally distended gallbladder. The gallbladder wall measured approximately 2.9 mm in thickness. There was no pericholecystic fluid. She had a negative Rosales sign. There was noted to have sludge within the gallbladder lumen and there was also multiple polyps measuring 0.9 x 0.5 cm in size, bile duct measured 2.6 mm in diameter. In the impression they said that the polyps could also be adherent stones. Patient does not have any fever or chills symptoms she does say that the pain does occasionally go into her back ROS General General: No weight change, appetite, fatigue, colon cancer, breast cancer or weakness HEENT HEENT: No difficulty swallowing, eye injury, eye surgery, swollen glands or hoarseness Endo Endocrine: Yes diabetes mellitus; no thyroid disease, thyroid cancer, Hair loss, heat intolerance or cold intolerance Cardio Cardiovascular: No murmur, pacemaker, heart disease, atrial fibrillation, high blood pressure, heart attack, heart stent, palpitations, shortness of breat with exertion or chest pain Resp Respiratory: No shortness of breath, No sleep apnea, No cough, No COPD, No asthma, No emphysema, No wheezing Gastro Gastrointestinal: Yes abdominal pain, No nausea or vomiting, Yes diarrhea, No constipation, No blood in stool, No acid reflux, No hemorrhoids, No ulcers, Yes gallbladder problem, No black,tarry stools Andrade Hematologic: No blood thinners, No blood disorders, No bleeding, No anemia, No blood clots Neuro Neurologic: No weakness Exam Const General: well developed, no acute distress, well hydrated Orientation: oriented to person, oriented to place, oriented to time [facility] Head: normocephalic, atraumatic Ears: external ears normal Mouth: moist mucous membranes Eyes Sclera: sclerae normal Pupils: normal by confrontation Neck Neck: no lymphadenopathy noted Neck mass: No Thyroid: symmetrical, thyroid normal Chest Chest palpation AND inspection: normal inspection of the chest Resp Effort AND Inspection: normal respiratory effort Auscultation: clear to auscultation bilaterally Percussion: percussion normal Cardio Rate: regular rate Rhythm: regular rhythm Heart Sounds: no murmurs GI Palpation: soft, no masses, no hepatosplenomegaly, nontender Rectal Exam: other Other: Rectal exam deferred. Extrem General: no clubbing, cyanosis or edema, normal to inspection Assessment AND Plan Problems 1. Calculus of gallbladder with chronic cholecystitis without obstruction K80.10 Plan Reviewed the anatomy with the patient and discussed the procedure: laparoscopic cholecystectomy with possible cholangiograms, possible open. Review risks including but not limited to bleeding, infection, hernia, bile leak, retained gallstones requiring another procedure ERCP- Endoscopic Retrograde Cholangiopancreatography, injury to another organ (bile ducts, common bile duct, small bowel, etc.) and conversion to an open procedure. All questions were answered. Coding Level of Care Code Off vis,new,level 3 Diagnoses Calculus of gallbladder with chronic cholecystitis without obstruction K80.10 Cholelithiasis location: gallbladder Cholecystitis acuity: chronic 08/09/18 0744 <Electronically signed by Jose Storm MD> Date Jose Storm MD [facility] Signature: Date (if applicable) CC: Tommy Rothman MD LIVER Observed: 07/03/2018 Status: F Source: [place] 8:26 AM [facility] Imaging Services [address] [place] [address] Liver MR#: [id number] Acct: [id number] Name: LEANA GALE Rep #: [id number] : 1960 F 57 From: Myron Sharma DO PCP: Tommy Rothman MD Status: REG CLI Study: Liver Date of Exam: 07/03/18 Exam# [id number] Ordering Dr: Tommy Rothman MD STUDY: ABDOMINAL ULTRASOUND - RIGHT UPPER QUADRANT REASON FOR VISIT: Female, 57 years old. Elevated liver function tests. TECHNIQUE: Ultrasound evaluation of the right upper quadrant was performed with real-time and static burns-scale imaging. TECHNICAL QUALITY: Adequate. COMPARISON: None. FINDINGS: Liver: The liver measures 15 cm. There is normal echogenicity of the liver. The bile ducts are within normal limits. There is hepatic color flow. The direction of portal flow is hepatopetal. There is no demonstrated mass lesion. Gallbladder: Normal distended gallbladder. The gallbladder wall measures 2.9 mm. There is a negative sonographic Rosales's sign. There is no pericholecystic fluid. There is sludge within the gallbladder lumen. There are multiple polyps. The largest measures 0.9 x 0.5 cm. Common Bile Duct (C.B.D.): The common bile duct measures 2.6 mm. Pancreas: Normal size of the head, body and proximal tail of the pancreas. There is normal echogenicity of the pancreas. There is no demonstrated pancreatic mass or cyst. Right Kidney: Normal size of the right kidney. The right kidney measures 11.3 cm. 1.6 The right cortex measures cm. There is no demonstrated renal mass or cyst. There is no right hydronephrosis. US/Liver IMPRESSION: 1. Multiple polyps versus adherent stones as well as sludge within the gallbladder. There is no evidence of acute cholecystitis. 2. No other sonographic evidence of right upper quadrant abnormality. Electronically Signed: Myron Sharma DO at 22:39 EST Tel [phone], Service support , CC: Tommy Rothman MD Cathode Maker: Signed HEMOGLOBIN A1C Collected: 06/24/2018 Status: F Source: [place] 8:34 AM [facility] [place] TYPE CODE TESTS RESULT OUT OF RANGE REFERENCE UNITS LAB L501.9985 4.2-6.3 % High HGB A1C 8.5 Performed By: #### L501.9985 #### [facility] [address] [place], [address] COMPREHENSIVE METABOLIC Collected: 06/24/2018 Status: F Source: [facility] 8:34 AM [facility] TYPE CODE TESTS RESULT OUT OF RANGE REFERENCE UNITS LAB L501.0100 74-106 mg/dL Normal GLU 97 Result Comment: Please note revised GLUCOSE reference range effective 2017. LAB L501.1000 7-18 mg/dL Normal BUN 18 LAB L501.1100 0.55-1.02 mg/dL Normal CREAT,SERUM 0.75 Result Comment: The validity of the calculated GFR AND GFRAA in patients over 70 years has not been determined. Clinical correlation is essential. LAB L501.1110 >60 mL/min Normal EST GFR 84 Result Comment: Non- GFR Calc LAB L501.1115 >60 mL/min Normal EST GFR - AA 102 Result Comment: GFR Calc LAB L501.1300 10-20 RATIO High BUN/CRE 23.9 LAB L501.1500 6.4-8.2 g/dL T Normal PROT 6.9 LAB L501.1800 3.2-5.0 g/dL Normal ALB 3.8 LAB L501.1950 2.2-4.2 g/dL Normal GLOB 3.1 LAB L501.2000 0.9-2.4 RATIO Normal A/G 1.2 LAB L501.2200 8.5-10.1 mg/dL CA Normal 9.1 LAB L501.4100 15-37 U/L High AST 80 LAB L501.4305 45-117 U/L High ALK P 121 LAB L501.4405 13-56 U/L High ALT 151 LAB L501.4600 0.20-1.00 mg/dL T Normal BILI 0.30 LAB L501.5300 136-145 mmol/L NA Normal 140 LAB L501.5600 3.5-5.1 mmol/L K Normal 4.0 LAB L501.5900 98-107 mmol/L CL Normal 103 LAB L501.6100 21.0-32.0 mmol/L Normal CO2 26.0 LAB L501.6200 5-15 Normal GAP 11 Performed By: #### L500.4050, L500.4100 #### [facility] [address] [place], [address] LIPID PROFILE Collected: 06/24/2018 Status: F Source: [place] 8:34 AM [facility] [place] [facility] [place] [place] TYPE CODE TESTS RESULT OUT OF RANGE REFERENCE UNITS LAB L501.4900 200 mg/dL Normal CHOL 189 Result Comment: <200 mg/dL Desirable 200-240 mg/dL Borderline >240 mg/dL High Risk LAB L501.5000 mg/dL Normal TRIG 156 Result Comment: The drugs N-Acetylcysteine and Metamizole may falsely depress this assay. Serum Triglycerides Reference Interval Normal <150 mg/dL Borderline high 150 - 199 mg/dL High 200 - 499 mg/dL Very High > or = 500 mg/dL LAB L501.6400 mg/dL Normal HDL 57 Result Comment: The drugs N-Acetylcysteine and Metamizole may falsely depress this assay. Reference Range HDL <40 mg/dL Low HDL Cholesterol HDL >or= 60 mg/dL High HDL Cholesterol LAB L501.6500 0-130 mg/dL Normal LDL 101 LAB L501.6600 5-40 mg/dL Normal VLDL 31 Performed By: #### L500.4050, L500.4100 #### [facility] [address] [place], [address] HEPATITIS B SURFACE Collected: 04/09/2018 Status: F Source: [place] [facility] 8:54 AM [facility] [place] [place] Order Comment: Order Date: 04/09/18 Order Info: [id number] - HEBSAG Order Info: [id number] - HEBSAB Order Info: 0363-1 - HECAB TYPE CODE TESTS RESULT OUT OF RANGE REFERENCE UNITS LAB L3100.0400 Negative Normal HB Negative SURF AG Result Comment: Performed at: - [facility] [id number] Radiology Technologist: Ishaan Coronado PhD, Phone: [phone] Performed By: #### L3100.0390, L3100.0528, L3100.0625 #### [facility] (refer to report for specific site) refer to report for address and phone number HEP B SURFACE Collected: 04/09/2018 Status: F Source: [place] [facility] 8:54 AM [facility] Order Comment: Order Date: 04/09/18 Order Info: 043- - HEBSAG Order Info: [id number] - HEBSAB Order Info: 0363-1 - HECAB TYPE CODE TESTS RESULT OUT OF RANGE REFERENCE UNITS LAB L3100.0528 . Normal Hep B Non Reactive Ignacio AB Result Comment: Non Reactive: Inconsistent with immunity, less than 10 mIU/mL Reactive: Consistent with immunity, greater than 9.9 mIU/mL Performed By: #### L3100.0390, L3100.0528, L3100.0625 #### [facility] (refer to report for specific site) refer to report for address and phone number HEPATITIS C ANTIBODIES Collected: 04/09/2018 Status: F Source: [place] 8:54 AM [facility] Order Comment: Order Date: 04/09/18 Order Info: 043-1 - HEBSAG Order Info: [id number] - HEBSAB Order Info: 0363-1 - HECAB TYPE CODE TESTS RESULT OUT OF RANGE REFERENCE UNITS LAB L3100.0650 0.0-0.9 s/co ratio Normal HEP C AB <0.1 Result Comment: Negative: < 0.8 Indeterminate: 0.8 - 0.9 Positive: > 0.9 The CDC recommends that a positive HCV antibody result be followed up with a HCV Nucleic Acid Amplification test (911205). Performed By: #### L3100.0390, L3100.0528, L3100.0625 #### [facility] (refer to report for specific site) refer to report for address and phone number DISCHARGE INSTRUCTION Observed: 04/06/2018 Status: F Source: [place] 3:15 AM [facility] Medical Records Department [address] [place] [address] Discharge Instruction 04/06/18312 MR#: [id number] Acct: [id number] Name: LEANA GALE Rep #: [id number] : 1960 57 From: Ammy Bennett MD PCP: Tommy Rothman MD Status: REG ER ED Disposition - Plan for ED Patient: Chief Complaint: Rash Instructions: ED Dermatitis Contact Prescriptions: Prednisone [Deltasone] 20 mg PO DAILY #5 tablet Referrals: Tommy Rothman MD [Primary Care Provider] - What to do if you have Problems For any increased pain, shortness of breath, bleeding, nausea or vomiting, chest pain, or any unexpected problems, contact your Primary Care Provider. Call [facility] ([phone]) or report to the closest Emergency Room. Call 911 if necessary. 04/06/18314 <Electronically signed by Ammy Bennett MD> Date Ammy Bennett MD Cosigner Signature (If Indicated): Date CC: Tommy Rothman MD EMERGENCY DEPARTMENT Observed: 04/06/2018 Status: F Source: [place] SUMMARY 3:13 AM [facility] Medical Records Department [address] [place] [address] Emergency Department Summary 04/06/18306 MR#: [id number] Acct: [id number] Name: LEANA GALE Rep #: [id number] : 1960 57 From: Ammy Bennett MD PCP: Tommy Rothman MD Status: REG ER - ER Visit Summary Date of Service: 04/06/18 Chief Complaint: Rash History of Present Illness: The patient is a 57 F presenting with rash 2 days. Patient states she started having a rash on her right leg. The rash has now spread to her trunk and upper extremities. She denies any new exposures other than drinking a new diet tea. She has had no new medications. She denies new soaps, detergents, lotions. She complains of itching all over. She denies fever. Denies difficulty breathing or swallowing. Physical Examination: Vitals are stable. Patient is afebrile. Alert no acute distress. HEENT exam is unremarkable. No mucous membrane lesions Neck is supple. Lungs are clear and equal bilaterally. Heart is regular rate and rhythm. Abdomen is soft nontender nondistended. Extremities are unremarkable. Skin is warm and dry. Diffuse blanchable maculopapular rash trunk and upper extremities. No petechiae or purpura. No focal neurologic deficit. Remainder of exam is unremarkable. Emergency Department Course and Treatment: Patient is given prednisone. She is advised to monitor blood sugar while on prednisone. She is advised to follow-up with her primary care physician at scheduled appointment on Sunday. Advised to return to the ED for worsening complaints. Disposition: Discharge home Impression: Generalized rash This note was generated with [employer] dictation software. It may contain incorrect words, spelling, and punctuation that were not noted in review of the chart prior to signing ED Disposition - Plan for ED Patient: Chief Complaint: Rash Referrals: Tommy Rothman MD [Primary Care Provider] - What to do if you have Problems For any increased pain, shortness of breath, bleeding, nausea or vomiting, chest pain, or any unexpected problems, contact your Primary Care Provider. Call [facility] ([phone]) or report to the closest Emergency Room. Call 911 if necessary. 04/06/18 0313 <Electronically signed by Ammy Bennett MD> Date Ammy Bennett MD Cosigner Signature (If Indicated): Date CC: Tommy Rothman MD CBC W/DIFF, AUTOMATED Collected: 04/04/2018 Status: F Source: [place] 9:41 AM [facility] [place] [facility] [place] [place] Order Comment: Order Date: 04/04/18 Order Info: 0184-1 - CBCD TYPE CODE TESTS RESULT OUT OF RANGE REFERENCE UNITS LAB L100.1000 4.4-11.0 K/mm3 Normal WBC 10.5 LAB L100.1200 4.2-5.4 M/mm3 Normal RBC 5.09 LAB L100.1300 12.0-15.0 g/dl Normal HGB 14.6 LAB L100.1400 37-47 % Normal HCT 43.8 LAB L100.1500 81-99 fL Normal MCV 86.1 LAB L100.1600 27.0-32.0 pg Normal MCH 28.7 LAB L100.1700 32-36 g/gl Normal MCHC 33.3 LAB L100.1810 11.6-14.6 % Normal RDW CV 12.6 LAB L100.1820 35.1-43.9 fl Normal RDW SD 39.7 LAB L100.1900 150-450 K/mm3 Normal PLT 339 LAB L100.2000 6.2-12.0 fl Normal MPV 10.8 LAB L100.2100 47-70 % Normal NEUT% 56.7 LAB L100.2200 19-41 % Normal LY% 30.4 LAB L100.2300 0-10 % Normal MONO% 7.2 LAB L100.2400 0-5 % Normal EO% 5.0 LAB L100.2500 0-1 % Normal BASO% 0.4 LAB L100.2550 0.0-0.9 % Normal IM GRAN % 0.300 Result Comment: IG% - Immature Granulocytes (promyelocytes, myelocytes and metamyelocytes) > 1% indicates that a LEFT SHIFT is Present. LAB L100.2620 2.0-7.7 X10 3/uL Normal Absolute Neut 5.9 LAB L100.2720 0.83-4.51 X10 3/ul Normal Absolute Lymph 3.18 Performed By: #### L100.0100, L501.9985, L500.4050, L500.4100, L501.5200, L501.9520, L503.6550, L502.0250 #### [facility] [address] [place], [address] HEMOGLOBIN A1C Collected: 04/04/2018 Status: F Source: [place] 9:41 AM [facility] [place] [place] Order Comment: Order Date: 04/04/18 Order Info: 4548-4 - A1C TYPE CODE TESTS RESULT OUT OF RANGE REFERENCE UNITS LAB L501.9985 4.2-6.3 % High HGB A1C 12.9 Performed By: #### L100.0100, L501.9985, L500.4050, L500.4100, L501.5200, L501.9520, L503.6550, L502.0250 #### [facility] [address] [place], [address] COMPREHENSIVE METABOLIC Collected: 04/04/2018 Status: F [facility] Order Comment: Order Date: 04/04/18 Order Info: [id number] - CMP Order Info: [id number] - LIPID Order Info: [id number] - MG Order Info: 3016-3 - TSH Order Info: 2276-4 - JESS TYPE CODE TESTS RESULT OUT OF RANGE REFERENCE UNITS LAB L501.0100 74-106 mg/dL High GLU 385 Result Comment: Glucose result greater than or equal to 200 mg/dL suggests DIABETES MELLITUS per A.D.A. criteria. Please note revised GLUCOSE reference range effective 2017. LAB L501.1000 7-18 mg/dL Normal BUN 10 LAB L501.1100 0.55-1.02 mg/dL Normal CREAT,SERUM 0.89 Result Comment: The validity of the calculated GFR AND GFRAA in patients over 70 years has not been determined. Clinical correlation is essential. LAB L501.1110 >60 mL/min Normal EST GFR 69 Result Comment: Non- GFR Calc LAB L501.1115 >60 mL/min Normal EST GFR - AA 84 Result Comment: GFR Calc LAB L501.1300 10-20 RATIO Normal BUN/CRE 11.2 LAB L501.1500 6.4-8.2 g/dL T Normal PROT 7.6 LAB L501.1800 3.2-5.0 g/dL Normal ALB 3.9 LAB L501.1950 2.2-4.2 g/dL Normal GLOB 3.7 LAB L501.2000 0.9-2.4 RATIO Normal A/G 1.1 LAB L501.2200 8.5-10.1 mg/dL CA Normal 9.1 LAB L501.4100 15-37 U/L Normal AST 19 LAB L501.4305 45-117 U/L High ALK P 141 LAB L501.4405 13-56 U/L High ALT 67 LAB L501.4600 0.20-1.00 mg/dL T Normal BILI 0.60 LAB L501.5300 136-145 mmol/L Low NA 133 LAB L501.5600 3.5-5.1 mmol/L K Normal 4.1 LAB L501.5900 98-107 mmol/L Low CL 97 LAB L501.6100 21.0-32.0 mmol/L Normal CO2 26.0 LAB L501.6200 5-15 Normal GAP 10 Performed By: #### L100.0100, L501.9985, L500.4050, L500.4100, L501.5200, L501.9520, L503.6550, L502.0250 #### [facility] [address] [place], [place], [address] LIPID PROFILE Collected: 04/04/2018 Status: F Source: [place] 9:41 AM [facility] [place] [place] Order Comment: Order Date: 04/04/18 Order Info: [id number] - CMP Order Info: [id number] - LIPID Order Info: [id number] - MG Order Info: 3016-3 - TSH Order Info: 2276-4 - JESS TYPE CODE TESTS RESULT OUT OF RANGE REFERENCE UNITS LAB L501.4900 200 mg/dL High CHOL 293 Result Comment: <200 mg/dL Desirable 200-240 mg/dL Borderline >240 mg/dL High Risk LAB L501.5000 mg/dL High TRIG 271 Result Comment: The drugs N-Acetylcysteine and Metamizole may falsely depress this assay. Serum Triglycerides Reference Interval Normal <150 mg/dL Borderline high 150 - 199 mg/dL High 200 - 499 mg/dL Very High > or = 500 mg/dL LAB L501.6400 mg/dL Normal HDL 48 Result Comment: The drugs N-Acetylcysteine and Metamizole may falsely depress this assay. Reference Range HDL <40 mg/dL Low HDL Cholesterol HDL >or= 60 mg/dL High HDL Cholesterol LAB L501.6500 0-130 mg/dL High LDL 191 LAB L501.6600 5-40 mg/dL High VLDL 54 Performed By: #### L100.0100, L501.9985, L500.4050, L500.4100, L501.5200, L501.9520, L503.6550, L502.0250 #### [facility] [address] [place], [place], [address] MAGNESIUM Collected: 04/04/2018 Status: F Source: [place] 9:41 AM [facility] [place] Order Comment: Order Date: 04/04/18 Order Info: [id number] - CMP Order Info: [id number] - LIPID Order Info: [id number] - MG Order Info: 3016-3 - TSH Order Info: 2276-4 - JESS TYPE CODE TESTS RESULT OUT OF RANGE REFERENCE UNITS LAB L501.5200 1.6-2.6 mg/dL Normal MG 2.3 Performed By: #### L100.0100, L501.9985, L500.4050, L500.4100, L501.5200, L501.9520, L503.6550, L502.0250 #### [facility] [address] [place], [place], [id number] THYROID STIM HORMONE Collected: 04/04/2018 Status: F Source: [place] (T[facility]) 9:41 AM [facility] Order Comment: Order Date: 04/04/18 Order Info: [id number] - CMP Order Info: [id number] - LIPID Order Info: [id number] - MG Order Info: 3016-3 - TSH Order Info: 2276-4 - JESS TYPE CODE TESTS RESULT OUT OF RANGE REFERENCE UNITS LAB L501.9520 0.358-3.74 uIU/mL Normal TSH 1.33 Performed By: #### L100.0100, L501.9985, L500.4050, L500.4100, L501.5200, L501.9520, L503.6550, L502.0250 #### [facility] [address] [place], [address] FERRITIN Collected: 04/04/2018 Status: F Source: [place] 9:41 AM [facility] Order Comment: Order Date: 04/04/18 Order Info: [id number] - CMP Order Info: [id number] - LIPID Order Info: [id number] - MG Order Info: 3016-3 - TSH Order Info: 2276-4 - JESS TYPE CODE TESTS RESULT OUT OF RANGE REFERENCE UNITS LAB L503.6550 8-252 ng/mL Normal FERRITIN 195 Performed By: #### L100.0100, L501.9985, L500.4050, L500.4100, L501.5200, L501.9520, L503.6550, L502.0250 #### [facility] [address] [place], [address] MICROALB:CREAT Collected: 04/04/2018 Status: F [facility] AM [facility] Order Comment: Order Date: 04/04/18 Order Info: [id number] - MIACRE TYPE CODE TESTS RESULT OUT OF RANGE REFERENCE UNITS LAB L501.1200 NO RANGE EST. mg/dL Normal UR CREAT 40.10 LAB L502.0500 NO RANGE EST. mg/L Normal 6.4 MICROALBUMIN ,UR LAB L502.0600 <30 mg/g CRE mg/g CRE Normal 15.9 MALB:CREAT Performed By: #### L100.0100, L501.9985, L500.4050, L500.4100, L501.5200, L501.9520, L503.6550, L502.0250 #### [facility] [address] [place], [address] URINALYSIS, COMPLETE Collected: 04/04/2018 Status: F Source: [place] 9:41 AM [facility] Order Comment: How was Urine Obtained? CLEAN CATCH TYPE CODE TESTS RESULT OUT OF RANGE REFERENCE UNITS LAB L400.3000 Yellow COLOR Normal Yellow LAB L400.3050 Clear Normal CLARITY Clear LAB L400.3200 Normal mg/dl High GLUCOSE, UR 1000 LAB L400.3300 Negative mg/dL Normal BILIRUBIN URINE Negative LAB L400.3400 Negative mg/dl High 15 KETONE UR LAB L400.3465 1.002-1.030 Normal SP.GR. DIPSTX 1.015 LAB L400.3550 5.0 - 8.0 pH UR Normal 5.0 LAB L400.3600 Negative mg/dl PROT Normal DIPSTX Negative LAB L400.3700 Normal mg/dl Normal UROBILI Normal LAB L400.3750 Negative Normal NITRITE UR Negative LAB L400.3780 Negative /ul Normal OCCULT BLOOD-UR Negative LAB L400.3800 Negative /ul LEUK Normal ESTERASE Negative LAB L400.4050 0-5 /hpf WBC Normal 0-5 SEEN LAB L400.4100 0-5 /hpf 0 Normal RBC-UA SEEN LAB L400.4150 5-10 /hpf SQUAM Normal EPI 0-5 SEEN LAB L400.4300 None Seen /hpf 1+ Normal BACTERIA LAB L400.4350 <or=2+ /hpf 0 Normal MUCUS, URINE SEEN Performed By: #### L400.0001 #### [facility] [address] [place], [address] PROGRESS Observed: 03/28/2018 Status: COMPLETED Source: [place] 7:33 AM [facility] HNO ID: [id number] Author: Leyla (Cloud Security Architect) Jovany Service: (none) Author Type: Nurse Practitioner Type: Progress Notes Filed: 03/28/2018 7:42 AM Note Text: Subjective HPI Leana Gale is a 57 year old female who presents with a rash on her left thigh, present for 2 days. She is not sure if it is an insect bite, a bee sting or a heat rash but it rubs on her jeans and hurts. She feels it is getting worse. She put baby powder on it at home. Review of Systems Constitutional: Negative. Negative for fever. Musculoskeletal: Negative. Skin: Positive for itching and rash. BP 130/84 Pulse 80 Temp 36.8 ?C (98.3 ?F) (Tympanic) Resp 16 Wt 78.3 kg (172 lb 9.6 oz) PAST MEDICAL HISTORY Diagnosis Date - Diffuse cystic mastopathy several lumps, biopsy benign - Esophageal reflux once a week - responds to Rolaids - Female stress incontinence - Major depressive disorder, recurrent episode, unspecified - Migraine, unspecified, without mention of intractable migraine without mention of status migrainosus once a month - Other and unspecified hyperlipidemia PAST SURGICAL HISTORY Procedure Laterality Date - LUMPECTOMY/RADIOTHERAPY DIAG MAMM/A10 1995 left breast ALLERGIES Patient has no known allergies. MEDICATIONS Snkemelzcjtgaed-Eqjlyhseg-UR (BROMFED DM) 2-30-10 mg/5 mL syrup Take 10 mL by mouth four times daily as needed. benzonatate (TESSALON PERLE) 100 mg capsule Take 2 capsules by mouth three times daily as needed. FAMILY HISTORY Problem Relation Age of Onset - Diabetes Father - Diabetes Paternal Grandmother - Colon Cancer Paternal Grandmother dx age 83 - Coronary Artery Disease Paternal Grandfather MD age 62 - Colon Cancer Other multiple maternal great aunts/uncles of colon CA - all in 80's - Cancer Mother ovarian?; of Alzheimer's disease age 62 - Cancer Sister ovarian?- age 45 - survived - Cancer Sister ovarian? - age 45 - survived Social History Substance Use Topics - Smoking status: Never Smoker - Smokeless tobacco: Never Used - Alcohol use Yes Comment: 1 glass a year Objective Physical Exam Constitutional: She is well-developed, well-nourished, and in no distress. Musculoskeletal: Right upper leg: She exhibits tenderness and swelling. She exhibits no bony tenderness, no edema and no deformity. Legs: Neurological: She is alert. Skin: Skin is warm and dry. There is erythema. Nursing note and vitals reviewed. ASSESSMENT/PLAN: 1. Allergic contact dermatitis, unspecified trigger - ICD9: 692.9, ICD10: L23.9 - Oral Steriod tx -Prednisone burst - Topical steriod tx with Rx for steriod cream/ointment- see orders - discussed skin care of rash - follow up if symptoms persist or worsen. - PREDNISONE 20 MG TABLET - TRIAMCINOLONE ACETONIDE 0.025 % TOPICAL CREAM - Follow-up with your PCP in 3-5 days if symptoms have not improved or sooner if symptoms worsen - Discussed red flags and need for immediate medical evaluation if any occur. - Discussed supportive care treatment with fluids, rest and analgesia. - Discussed expected course of illness Leyla Manzo APRN.CNP CNOV Observed: 03/28/2018 Status: COMPLETED Source: [place] 7:15 AM [facility] REPOSITORY Office Visit (WSTR) LEANA GALE ([id number]) 1960 F Date Time Provider Department 03/28/18 7:15 AM LEYLA MANZO ([facility]) [facility] During your visit today, we recorded the following information about you: Temperature Pulse Respiration Blood pressure 98.3 degrees 80/minute 16/minute 130/84 Weight 78.3 kg Leyla Manzo APRN.CNP 03/28/2018 7:42 AM Signed Subjective HPI Leana Gale is a 57 year old female who presents with a rash on her left thigh, present for 2 days. She is not sure if it is an insect bite, a bee sting or a heat rash but it rubs on her jeans and hurts. She feels it is getting worse. She put baby powder on it at home. Review of Systems Constitutional: Negative. Negative for fever. Musculoskeletal: Negative. Skin: Positive for itching and rash. BP 130/84 Pulse 80 Temp 36.8 ?C (98.3 ?F) (Tympanic) Resp 16 Wt 78.3 kg (172 lb 9.6 oz) PAST MEDICAL HISTORY Diagnosis Date - Diffuse cystic mastopathy several lumps, biopsy benign - Esophageal reflux once a week - responds to Rolaids - Female stress incontinence - Major depressive disorder, recurrent episode, unspecified - Migraine, unspecified, without mention of intractable migraine without mention of status migrainosus once a month - Other and unspecified hyperlipidemia PAST SURGICAL HISTORY Procedure Laterality Date - LUMPECTOMY/RADIOTHERAPY DIAG MAMM/A10 1995 left breast ALLERGIES Patient has no known allergies. MEDICATIONS Prcxhfzxmxqtmiw-Otlpcdiio-ON (BROMFED DM) 2-30-10 mg/5 mL syrup Take 10 mL by mouth four times daily as needed. benzonatate (TESSALON PERLE) 100 mg capsule Take 2 capsules by mouth three times daily as needed. FAMILY HISTORY Problem Relation Age of Onset - Diabetes Father - Diabetes Paternal Grandmother - Colon Cancer Paternal Grandmother dx age 83 - Coronary Artery Disease Paternal Grandfather MD age 62 - Colon Cancer Other multiple maternal great aunts/uncles of colon CA - all in 80's - Cancer Mother ovarian?; of Alzheimer's disease age 62 - Cancer Sister ovarian?- age 45 - survived - Cancer Sister ovarian? - age 45 - survived Social History Substance Use Topics - Smoking status: Never Smoker - Smokeless tobacco: Never Used - Alcohol use Yes Comment: 1 glass a year Objective Physical Exam Constitutional: She is well-developed, well-nourished, and in no distress. Musculoskeletal: Right upper leg: She exhibits tenderness and swelling. She exhibits no bony tenderness, no edema and no deformity. Legs: Neurological: She is alert. Skin: Skin is warm and dry. There is erythema. Nursing note and vitals reviewed. ASSESSMENT/PLAN: 1. Allergic contact dermatitis, unspecified trigger - ICD9: 692.9, ICD10: L23.9 - Oral Steriod tx -Prednisone burst - Topical steriod tx with Rx for steriod cream/ointment- see orders - discussed skin care of rash - follow up if symptoms persist or worsen. - PREDNISONE 20 MG TABLET - TRIAMCINOLONE ACETONIDE 0.025 % TOPICAL CREAM - Follow-up with your PCP in 3-5 days if symptoms have not improved or sooner if symptoms worsen - Discussed red flags and need for immediate medical evaluation if any occur. - Discussed supportive care treatment with fluids, rest and analgesia. - Discussed expected course of illness KINDRA Martin APRN.CNP 03/28/2018 7:40 AM Signed Take medications as prescribed. If not improving in 3-5 days, or you have worsening symptoms, see your primary care provider for recheck. Our exam shows you have a rash which has no clear cause. Rashes can result from infections, allergies, or irritation of the skin by chemicals or other environmental factors. Rashes can also result from scratching or rubbing the skin too much to relieve itching. Further medical examination may be needed to identify the specific cause and proper treatment of your skin rash. You should treat your rash as recommended by your doctor. If you have itching, you should avoid scratching as much as possible, as this further damages the skin. Ask your doctor or pharmacist if you have any questions about what topical medicines may help relieve your symptoms. Call your doctor right away if your rash is not better in 2-3 days, if it worsens, or if there are signs of infection (increased pain, redness, drainage or pus). Referring Provider: SELF [[id number]] Allergies As of Date: 03/28/2018 (No Known Allergies) Date Reviewed: 03/28/2018 Reviewed by: Leyla ([facility]) Jovany - Fully Assessed Reason for Visit: sore on left inner thigh [Other] Cmt: x 2 days-not sure if it is an insect bite Primary Visit Diagnosis:Allergic contact dermatitis, unspecified trigger [L23.9] Order(s):predniSONE (DELTASONE) 20 mg tabletTake 2 tablets by mouth once daily for 4 days. Take daily with food.Disp: 8 tabletRfl: 0 triamcinolone (KENALOG) 0.025 % creamApply 1 application to affected area twice daily.Disp: 30 gRfl: 0 Prescriptions as of 03/28/2018 Sig: PREDNISONE 20 MG TABLET Take 2 tablets by mouth once * TRIAMCINOLONE ACETONIDE 0.025* Apply 1 application to affect* Problem List As Of Date 03/28/2018 Noted Resolved RECURR DEPR PSYCHOS-UNSP [F33.9] FEMALE STRESS INCONTINENCE [N39.3] DIFFUS CYSTIC MASTOPATHY [N60.19] More... ESOPHAGEAL REFLUX [K21.9] More... MIGRAINE NOS W/O MENTN INTRACTABLE [G43.909] More... HYPERLIPIDEMIA NEC/NOS [E78.5] More... IMPAIRED FASTING GLUCOSE [R73.01] INVALID FOR* More... OBESITY NOS [E66.9] INVALID FOR* Other instructions from your clinician: Take medications as prescribed. If not improving in 3- 5 days, or you have worsening symptoms, see your primary care provider for recheck. Our exam shows you have a rash which has no clear cause. Rashes can result from infections, allergies, or irritation of the skin by chemicals or other environmental factors. Rashes can also result from scratching or rubbing the skin too much to relieve itching. Further medical examination may be needed to identify the specific cause and proper treatment of your skin rash. You should treat your rash as recommended by your doctor. If you have itching, you should avoid scratching as much as possible, as this further damages the skin. Ask your doctor or pharmacist if you have any questions about what topical medicines may help relieve your symptoms. Call your doctor right away if your rash is not better in 2-3 days, if it worsens, or if there are signs of infection (increased pain, redness, drainage or pus). Prescriptions ordered this encounter Disp Refills Start End PREDNISONE 20 MG TABLET 8 ta* 0 03/28/2018 04/01/2018 Route: ORAL Sig: Take 2 tablets by mouth once daily for 4 days. Take daily with food. TRIAMCINOLONE ACETONIDE 0.025 % TOPI* 30 g 0 03/28/2018 Route: TOPICAL Sig: Apply 1 application to affected area twice daily. Medications Discontinued During This Encounter Jnnqaulnrhaikbh-Fkzdxgzpf-FF (BROMFE* 120 * 0 09/04/2017 03/28/2018 Route: ORAL Sig: Take 10 mL by mouth four times daily as needed. Patient not taking: Reported on 03/28/2018 Disc: Reason for discontinue is not on file. benzonatate (TESSALON PERLE) 100 mg * 30 c* 0 09/04/2017 03/28/2018 Route: ORAL Sig: Take 2 capsules by mouth three times daily as needed. Patient not taking: Reported on 03/28/2018 Disc: Reason for discontinue is not on file. Encounter Status:Closed by LEYLA MANZO on 03/28/18 PROGRESS Observed: 09/09/2017 Status: COMPLETED Source: [place] 12:04 PM [facility] REPOSITORY HNO ID: [id number] Author: Lisa Ruiz) Francy Service: (none) Author Type: Physician Orthopedic Specialist Type: Progress Notes Filed: 09/09/2017 1:48 PM Note Text: HPI Pt presents with a cough x 10 days. She was seen here on 09/04. She has completed 5 days of prednisone, bromfed and tessalon without relief. She states it did not help at all. No fevers recently. No vomiting or diarrhea. Review of Systems Constitutional: Negative. HENT: Positive for sore throat. Eyes: Negative. Respiratory: Positive for cough and sputum production. Negative for shortness of breath and wheezing. Cardiovascular: Negative. Gastrointestinal: Negative. Genitourinary: Negative. Musculoskeletal: Negative. Skin: Negative. All other systems reviewed and are negative. PAST MEDICAL HISTORY Diagnosis Date - Diffuse cystic mastopathy several lumps, biopsy benign - Esophageal reflux once a week - responds to Rolaids - Female stress incontinence - Major depressive disorder, recurrent episode, unspecified - Migraine, unspecified, without mention of intractable migraine without mention of status migrainosus once a month - Other and unspecified hyperlipidemia Current Outpatient Prescriptions: predniSONE (DELTASONE) 20 mg tablet Take 2 tablets by mouth once daily for 5 days. Disp: 10 tablet Rfl: 0 Drpgcfvhbnfzhfe-Svbxztgrf-JO (BROMFED DM) 2-30-10 mg/5 mL syrup Take 10 mL by mouth four times daily as needed. Disp: 120 mL Rfl: 0 benzonatate (TESSALON PERLE) 100 mg capsule Take 2 capsules by mouth three times daily as needed. Disp: 30 capsule Rfl: 0 doxycycline (VIBRA-TABS) 100 mg tablet Take 1 tablet by mouth twice daily for 10 days. Disp: 20 tablet Rfl: 0 codeine-guaiFENesin (GUAIFENESIN AC) 10-100 mg/5 mL syrup Take 5 mL by mouth four times daily as needed for up to 5 days. Disp: 120 mL Rfl: 0 No current facility-administered medications for this visit. PAST SURGICAL HISTORY Procedure Laterality Date - LUMPECTOMY/RADIOTHERAPY DIAG MAMM/A10 1995 left breast FAMILY HISTORY Problem Relation Age of Onset - Diabetes Father - Diabetes Paternal Grandmother - Colon Cancer Paternal Grandmother dx age 83 - Coronary Artery Disease Paternal Grandfather MD age 62 - Colon Cancer Other multiple maternal great aunts/uncles of colon CA - all in 80's - Cancer Mother ovarian?; of Alzheimer's disease age 62 - Cancer Sister ovarian?- age 45 - survived - Cancer Sister ovarian? - age 45 - survived Social History Substance Use Topics - Smoking status: Never Smoker - Smokeless tobacco: Never Used - Alcohol use Yes Comment: 1 glass a year BP 116/88 Pulse 78 Temp 36.2 ?C (97.1 ?F) (Tympanic) Resp 18 Wt 79.8 kg (176 lb) SpO2 97% BMI 30.21 kg/m2 Physical Exam Constitutional: She is oriented to person, place, and time and well-developed, well-nourished, and in no distress. HENT: Head: Normocephalic and atraumatic. Right Ear: External ear normal. Left Ear: External ear normal. Nose: Nose normal. Mouth/Throat: Oropharynx is clear and moist. Neck: Normal range of motion. Neck supple. Cardiovascular: Normal rate, regular rhythm and normal heart sounds. Pulmonary/Chest: Effort normal and breath sounds normal. Harsh cough noted Neurological: She is alert and oriented to person, place, and time. Skin: Skin is warm and dry. Psychiatric: Affect and judgment normal. Nursing note and vitals reviewed. ASSESSMENT/PLAN: 1. Acute bronchitis, unspecified organism - ICD9: 466.0, ICD10: J20.9 Pt not feeling better after bromfed and prednisone. Will add doxycycline and change cough syrup. INstructed if she doesn't feel better after this needs to see pcp. Discussed with patient concerning symptoms to go to the emergency department or follow up here. Pt agreeable with this plan. - DOXYCYCLINE HYCLATE 100 MG TABLET - CODEINE 10 MG-GUAIFENESIN 100 MG/5 ML ORAL LIQUID Lisa Sen PA-C PROGRESS Observed: 09/04/2017 Status: COMPLETED Source: [place] 7:37 AM [facility] REPOSITORY O ID: [id number] Author: Serafin Siddiqui Service: (none) Author Type: Nurse Practitioner Type: Progress Notes Filed: 09/04/2017 8:07 AM Note Text: HPI HPI Leana Gale is a 56 year old female who presents today for CC of cough, chest congestion. This started 4 days ago. Has tried theraflu with mild relief. Symptoms are worsened by nothing. Risk factors patient is diabetic. Nonsmoker. Lost voice, now returned. Review of Systems Constitutional: Negative for chills, fever and weight loss. HENT: Positive for congestion and sore throat. Negative for ear pain and nosebleeds. Respiratory: Positive for cough. Negative for shortness of breath and wheezing. Musculoskeletal: Negative for neck pain. PAST MEDICAL HISTORY Diagnosis Date - Diffuse cystic mastopathy several lumps, biopsy benign - Esophageal reflux once a week - responds to Rolaids - Female stress incontinence - Major depressive disorder, recurrent episode, unspecified - Migraine, unspecified, without mention of intractable migraine without mention of status migrainosus once a month - Other and unspecified hyperlipidemia PAST SURGICAL HISTORY Procedure Laterality Date - LUMPECTOMY/RADIOTHERAPY DIAG MAMM/A10 1995 left breast ALLERGIES Review of patient's allergies indicates no known allergies. MEDICATIONS No prescriptions on file. FAMILY HISTORY Problem Relation Age of Onset - Diabetes Father - Diabetes Paternal Grandmother - Colon Cancer Paternal Grandmother dx age 83 - Coronary Artery Disease Paternal Grandfather MD age 62 - Colon Cancer Other multiple maternal great aunts/uncles of colon CA - all in 80's - Cancer Mother ovarian?; of Alzheimer's disease age 62 - Cancer Sister ovarian?- age 45 - survived - Cancer Sister ovarian? - age 45 - survived Social History Substance Use Topics - Smoking status: Never Smoker - Smokeless tobacco: Never Used - Alcohol use Yes Comment: 1 glass a year Blood pressure 122/64, pulse 74, temperature 36.8 ?C (98.2 ?F), temperature source Tympanic, resp. rate 16, weight 82.6 kg (182 lb), SpO2 97 %. Physical Exam Constitutional: She is oriented to person, place, and time and well-developed, well-nourished, and in no distress. Non-toxic appearance. She does not have a sickly appearance. No distress. HENT: Head: Normocephalic and atraumatic. Right Ear: Hearing, tympanic membrane, external ear and ear canal normal. Left Ear: Hearing, tympanic membrane, external ear and ear canal normal. Nose: Nose normal. Mouth/Throat: Uvula is midline, oropharynx is clear and moist and mucous membranes are normal. Eyes: Conjunctivae and lids are normal. Pupils are equal, round, and reactive to light. Right eye exhibits no discharge. Left eye exhibits no discharge. No scleral icterus. Neck: Trachea normal and normal range of motion. Neck supple. Cardiovascular: Normal rate, regular rhythm and normal heart sounds. Pulmonary/Chest: Effort normal and breath sounds normal. Lymphadenopathy: She has no cervical adenopathy. Neurological: She is alert and oriented to person, place, and time. Skin: No rash noted. She is not diaphoretic. ASSESSMENT/PLAN: 1. Viral URI with cough - ICD9: 465.9, ICD10: J06.9, B97.89 - Discussed viral etiology and rationale for treatment. - Symptomatic treatment with prn analgesia - Supportive care with fluids and rest - Follow up in 3-5 days if symptoms persist or sooner if worsening of symptoms --If you experience chest pain/shortness of breath go to ER - PREDNISONE 20 MG TABLET - AJCLGRZXERDMJWU-BLQXJQZKBPQHBVJ-YB 2 MG-30 MG-10 MG/5 ML SYRUP - BENZONATATE 100 MG CAPSULE Prescription instructions reviewed with patient as applicable. Parent advised if symptoms do not improve or if symptoms worsen sooner, to contact the office for further evaluation by their primary care physician. Potential red flag symptoms discussed with the patient. Reviewed appropriate action plan to take if red flag symptoms occur. Parent agreeable to treatment plan. Serafin Siddiqui CNP ALLERGIES ALLERGIES DATE TYPE / CODE NAME / CODE REACTION SEVERITY SOURCE 08/22/2018 Drug hydrocodone/F006 Nausea [facility] 757961([facility] 875236(SNOM Repository ED CT) 08/22/2018 Drug oxycodone/O81547 Nausea Unknown [facility]/416 1558(RXNORM) [facility] 818420(SNOM Repository ED CT) 08/22/2018 Drug acetaminophen/F0 Nausea Unknown [facility]/416 46118505(RXNORM) Hospital 719113(SNOM Repository ED CT) 08/09/2018 Drug No Known Unknown [facility] Allergy/416 Allergies/Y48804 Hospital 303685(SNOM 0388(RXNORM) Repository ED CT) Drug NO KNOWN [facility] Class/20841 ALLERGIES [facility] [place] 1003(SNOMED Repository CT) ENCOUNTERS ENCOUNTERS ADMIT/DISCHARGE ACCOUNT ADMITTING ENCOUNTER LOCATION SOURCE NUMBER CLASS 08/22/2018/08/22/19 [id number] Ambulatory BMSBuilding:B [facility] Repository 08/16/2018 [id number] Ambulatory BMSBuilding:B [facility] Repository 08/16/2018/08/16/19 [id number] Ambulatory [place] [facility] ing:SDCRoom: Repository AC06 08/16/2018 [id number] Ambulatory BMSBuilding:W [place] [facility] Repository 08/09/2018/08/09/19 [id number] Ambulatory BMSBuilding:B [place] [facility] Repository 07/03/2018 [id number] Ambulatory [facility] ing:US Repository 06/24/2018 [id number] Ambulatory [facility] ing:MFPLAB Repository 04/09/2018 [id number] Ambulatory [facility] ing:MFPLAB Repository 04/06/2018/04/06/20 [id number] Emergency [address] ing:ED Repository 04/04/2018 [id number] Ambulatory [facility] ing:MFPLAB Repository 03/28/2018/03/28/20 [id number] Ambulatory [address] Repository 09/09/2017/09/11/19 [id number] Ambulatory [address] Repository 09/04/2017/09/04/19 [id number] Ambulatory [address] Repository PAYERS PAYERS ENCOUNTER GUARANTOR PAYER SUBSCRIBER SOURCE 08/22/2018 LEANA López Primary [facility]AAN [facility] [id number] 07/31 Insurance:MEDICAL GRIFFINDOB: [facility] [id number] [place] [address] Number: Repository [id number]: [phone] [id number] [phone] () Date:5036-24-27ZR[address] [address]FW: 08/22/2018 Secondary NOT GIVENUNK [place] Insurance:SELF PAY [facility] Number: Effective Repository Date:2018-08-22 08/16/2018 LEANA L Primary LEANA Grant [id number] 07/31 Insurance:MEDICAL GRIFFINDOB: [facility] [id number] [place] [address] Number: Repository [id number]: [phone] [id number] [phone] (HP) Date:1292-24-72RL [address] [address]XL: 08/16/2018 Secondary NOT GIVENUNK [place] Insurance:SELF PAY [facility] Number: Effective Repository Date:2018-08-16 08/16/2018 LEANA López Primary LEANA Grant [id number] 1/2 Insurance:MEDICAL GRIFFINDOB: [facility] [id number] Number: Repository [id number]: 330 [id number] [phone] (HP) Date:3770-00-42SO [address] [address]KN: 08/16/2018 Secondary NOT GIVENUNK [place] Insurance:SELF PAY [facility] Number: Effective Repository Date:2018-08-12 08/16/2018 LEANA López Primary LEANA Grant [id number] 1/2 Insurance:MEDICAL GRIFFINDOB: [address] Number: Repository [id number]: 330 [id number] [phone] () Date:4410-70-91MN [address] [address]GJ: 08/16/2018 Secondary NOT GIVENUNK [place] Insurance:SELF PAY [facility] Number: Effective Repository Date:2018-08-16 08/09/2018 LEANA López Primary LEANA Grant [id number] 1/2 Insurance:MEDICAL GRIFFINDOB: [facility] [id number] Number: Repository [address]Ceo: 330 [id number] [phone] (HP) Date:5785-51-40BM [address] [address]YC: 08/09/2018 Secondary NOT GIVENUNK [place] Insurance:SELF PAY [facility] Number: Effective Repository Date:2018-08-07 07/03/2018 LEANA López Primary LEANA Grant [id number] 1/2 Insurance:MEDICAL GRIFFINDOB: [facility] [id number] Number: Repository [id number]: ([phone] [id number] [phone] (HP) Date:0999-52-44SC [address] [address]UC: 07/03/2018 Secondary NOT GIVENUNK [place] Insurance:SELF PAY [facility] Number: Effective Repository Date:2018-06-26 06/24/2018 LEANA López Primary LEANA Grant [id number] 1/2 Insurance:MEDICAL GRIFFINDOB: [place] 4[address] Number: Repository [id number]: 330 [id number] [phone] (HP) Date:4635-51-76LD [address] [address]WV: 06/24/2018 Secondary NOT GIVENUNK [place] Insurance:SELF PAY [facility] Number: Effective Repository Date:2018-06-24 04/09/2018 LEANA López Primary LEANA Grant [id number] 1/2 Insurance:MEDICAL GRIFFINDOB: [facility] [id number] Number: Repository [id number]: ([phone] [id number] [phone] (HP) Date:0316-14-32ZK [address] [address]CS: 04/09/2018 Secondary NOT GIVENUNK [place] Insurance:SELF PAY [facility] Number: Effective Repository Date:2018-04-09 04/06/2018 LEANA L Primary LEANA Grant [id number] 1/2 Insurance:MEDICAL GRIFFINDOB: [place] 4[address] Number: Repository [id number]: 330 [id number] [phone] (HP) Date:4973-88-93GV [address] [address]ZB: 04/06/2018 Secondary NOT GIVENUNK [place] Insurance:SELF PAY [facility] Number: Effective Repository Date:2018-04-06 04/04/2018 LEANA López Primary LEANA Grant [id number] 07/31 Insurance:MEDICAL GRIFFINDOB: [facility] [id number] Repository [id number]: [phone] [id number] [phone] () Date:2582-74-17[address], [place] [address]TN: 04/04/2018 Secondary NOT GIVENUNK [place] Insurance:SELF PAY [facility] Number: Effective Repository Date:2018-04-04
== END 2018-08-16 14:59 | disposition home or self-care (01) ==
LOC: SDC 07:49 → AC 07:50
PROVIDERS: Family Provider Family Medicine; PCP Family Medicine; Referring Provider Surgery; Visit Provider Surgery
PROC: (CPT 47562; principal; 2018-08-16 09:30)
DX: K80.10 Calculus of gallbladder with chronic cholecystitis without obstruction (principal); E11.9 Type 2 diabetes mellitus without complications; E78.5 Hyperlipidemia, unspecified; Z79.4 Long term (current) use of insulin; Z79.899 Other long term (current) drug therapy
CPT/HCPCS: 00790; 47562; 36415; 80048; 80076; 82962; 83036; 85027; 85610; 85730; 88304; 93005; J7120; J2405

== ENCOUNTER → 2018-09-23 09:37 | Outpatient (CLI) | payer OTHER, SELFPAY ==
[2018-09-23 13:06] LABS: Albumin, Serum 3.9 g/dL (3.2-5.0); BUN 16 mg/dL (7-18); BUN/Creat Ratio 22.8 RATIO (10-20); EST Glomerular Filtration Rate 91 mL/min (>60); Est Glom Filt Rate - Afr Amer 110 mL/min (>60); Globulin 3.4 g/dL (2.2-4.2); Glucose 110 mg/dL (74-106); Protein, Total 7.3 g/dL (6.4-8.2)
[2018-09-23 13:07] LABS: ALB/GLOB Ratio 1.1 RATIO (0.9-2.4); AST(SGOT) 29 U/L (15-37); Alanine Aminotransfer ALT/SGPT 71 U/L (13-56); Alkaline Phosphatase 101 U/L (45-117); Anion Gap 6 (5-15); Calcium,Total 9.1 mg/dL (8.5-10.1); Chloride 104 mmol/L (98-107); Cholesterol 135 mg/dL (200); High Density Lipoprotein 61 mg/dL; Potassium 4.2 mmol/L (3.5-5.1); Sodium Level 138 mmol/L (136-145); Triglycerides 97 mg/dL; Very Low Density Lipoprotein 19 mg/dL (5-40)
[2018-09-23 13:15] LABS: Hemoglobin A1c 6.7 % (4.2-6.3)
== END ==
PROVIDERS: Family Provider Family Medicine; PCP Family Medicine; Visit Provider Family Medicine
DX: E11.9 Type 2 diabetes mellitus without complications (principal); E78.5 Hyperlipidemia, unspecified
CPT/HCPCS: 36415; 80053; 80061; 83036

== ENCOUNTER → 2018-12-19 | Outpatient (CLI) | payer OTHER, SELFPAY ==
[2018-12-19 10:18] LABS: ALB/GLOB Ratio 1.4 RATIO (0.9-2.4); AST(SGOT) 52 U/L (15-37); Alanine Aminotransfer ALT/SGPT 92 U/L (13-56); Albumin, Serum 3.9 g/dL (3.2-5.0); Alkaline Phosphatase 80 U/L (45-117); Anion Gap 6 (5-15); BUN 23 mg/dL (7-18); BUN/Creat Ratio 33.5 RATIO (10-20); Calcium,Total 9.1 mg/dL (8.5-10.1); Chloride 103 mmol/L (98-107); Cholesterol 122 mg/dL (200); Creatinine, Serum 0.69 mg/dL (0.55-1.02); EST Glomerular Filtration Rate 94 mL/min (>60); Est Glom Filt Rate - Afr Amer 113 mL/min (>60); Globulin 2.8 g/dL (2.2-4.2); Glucose 88 mg/dL (74-106); High Density Lipoprotein 56 mg/dL; Potassium 4.4 mmol/L (3.5-5.1); Protein, Total 6.7 g/dL (6.4-8.2); Sodium Level 139 mmol/L (136-145); Triglycerides 93 mg/dL; Very Low Density Lipoprotein 19 mg/dL (5-40)
[2018-12-19 10:19] LABS: Hemoglobin A1c 6.3 % (4.2-6.3)
== END | disposition home or self-care (01) ==
LOC: MFPLAB 08:17
PROVIDERS: Family Provider Family Medicine; PCP Family Medicine; Referring Provider Family Medicine; Visit Provider Family Medicine
DX: E11.9 Type 2 diabetes mellitus without complications (principal); E78.5 Hyperlipidemia, unspecified
CPT/HCPCS: 36415; 80053; 80061; 83036

== ENCOUNTER 2019-02-03 23:32 | Emergency (ER) | payer OTHER, SELFPAY ==
[2019-02-03 23:33] VITALS: BP 160/83; PULSE 79; RESP 17; TEMP 36; O2SAT 97; BMI 34.6
[2019-02-03] MEDS: Tetracaine 0.5% Ophthalmic Bottle 1 DRP RIGHT EYE (23:58)
[2019-02-03] MEDS: Fluorescein 1 MG STRIP 1 STRIP RIGHT EYE (23:58)
--- NOTE | 2019-02-04 00:08 | ED.VISSUMM ---
- ER Visit Summary Date of Service: 02/04/19 Chief Complaint: Right eye pain History of Present Illness: The patient is a 58 F who presents with right eye pain. It began yesterday. She complains of watering light sensitivity and burning pain. No history of injury although she [place] out [place] the [place] weekend and it was very bright. She does not wear contacts or glasses. She denies any other recent illness and review of systems otherwise negative. Physical Examination: Afebrile vitals unremarkable Patient has diffuse injection of the right eye Pupils equally round reactive to light extraocular motion intact without pain or palsy Anterior chamber deep and quiet Slit-lamp examination does show dye uptake in the lower lateral quadrant of the cornea consistent with an abrasion I do not see punctate uptake as seen with keratitis Test Results: Slit-lamp examination as above Emergency Department Course and Treatment: Initially given the patient's presentation is most concerned for UV keratitis. However slit-lamp examination is more consistent with corneal abrasion. We will treat with ophthalmic antibiotics. Patient understands to return for new or worsening symptoms otherwise to follow-up with her primary care physician. Patient did have immediate relief of symptoms with tetracaine. All questions answered bedside. Patient agreeable to plan. Patient discharged. Treatment Plan: [] Disposition: Discharge Impression: Corneal abrasion This note was generated with [employer] dictation software. It may contain incorrect words, spelling, and punctuation that were not noted in review of the chart prior to signing ED Disposition - Plan for ED Patient: Referrals: Tommy Rothman MD [Primary Care Provider] -
--- NOTE | 2019-02-04 00:11 | ED.DEP ---
ED Disposition - Plan for ED Patient: Instructions: Corneal Abrasion Referrals: Tommy Rothman MD [Primary Care Provider] -
[2019-02-04 00:30] VITALS: RESP 16
== END 2019-02-04 00:30 | disposition home or self-care (01) ==
LOC: ED 02-04 00:01
PROVIDERS: Emergency Provider Emergency Medicine; Family Provider Family Medicine; PCP Family Medicine
DX: S05.01XA Injury of conjunctiva and corneal abrasion without foreign body, right eye, initial encounter (principal); E11.9 Type 2 diabetes mellitus without complications; E78.00 Pure hypercholesterolemia, unspecified; Z79.4 Long term (current) use of insulin; Z79.899 Other long term (current) drug therapy; X58.XXXA Exposure to other specified factors, initial encounter; Y93.89 Activity, other specified; Y92.89 Other specified places as the place of occurrence of the external cause; Y99.8 Other external cause status
CPT/HCPCS: 99282

== ENCOUNTER → 2019-04-21 | Outpatient (CLI) | payer OTHER, SELFPAY ==
[2019-04-21 17:57] LABS: ALB/GLOB Ratio 1.3 RATIO (0.9-2.4); AST(SGOT) 43 U/L (15-37); Alanine Aminotransfer ALT/SGPT 83 U/L (13-56); Albumin, Serum 4.2 g/dL (3.2-5.0); Alkaline Phosphatase 70 U/L (45-117); Anion Gap 9 (5-15); BUN 21 mg/dL (7-18); BUN/Creat Ratio 24.7 RATIO (10-20); Chloride 103 mmol/L (98-107); Creatinine, Serum 0.85 mg/dL (0.55-1.02); EST Glomerular Filtration Rate 73 mL/min (>60); Est Glom Filt Rate - Afr Amer 88 mL/min (>60); Globulin 3.2 g/dL (2.2-4.2); Glucose 86 mg/dL (74-106); Potassium 4.2 mmol/L (3.5-5.1); Protein, Total 7.4 g/dL (6.4-8.2); Sodium Level 140 mmol/L (136-145)
== END | disposition home or self-care (01) ==
LOC: MFPLAB 15:44
PROVIDERS: Family Provider Family Medicine; PCP Family Medicine; Visit Provider Family Medicine
DX: E11.9 Type 2 diabetes mellitus without complications (principal)
CPT/HCPCS: 36415; 80053; 83036

== ENCOUNTER → 2019-09-23 | Outpatient (CLI) | payer OTHER, SELFPAY ==
[2019-09-23 17:43] LABS: Absolute Lymphocyte Count 3.81 X10^3/uL (0.83-4.51); Absolute Neutrophil Count 6.5 X10^3/uL (2.0-7.7); Basophil# 0.08 X10^3/uL; Basophil% 0.7 % (0-1); Eosinophil# 0.42 X10^3/uL; Eosinophils% 3.6 % (0-5); Hematocrit 40.7 % (37-47); Hemoglobin 13.4 g/dL (12.0-15.0); Lymphocyte # 3.81 X10^3/ul (4.0); Lymphocyte % 32.6 % (19-41); Mean Corp Hgb Conc 32.9 g/dL (32-36); Mean Corpuscular Hgb 28.8 pg (27.0-32.0); Mean Corpuscular Volume 87.5 fL (81-99); Mean Platelet Vol. 10.4 fl (6.2-12.0); Monocyte# 0.87 X10^3/uL; Monocyte% 7.5 % (0-10); NRBC Flagged by Analyzer 0 % (0-5); Neutrophil # 6.47 X10^3/uL (2.7-7.7); Neutrophil % 55.4 % (47-70); Platelet Count 371 K/mm3 (150-450); RBC Distribution Width CV 12.2 % (11.6-14.6); Red Blood Count 4.65 M/mm3 (4.2-5.4); White Blood Count 11.7 K/mm3 (4.4-11.0)
[2019-09-23 18:04] LABS: ALB/GLOB Ratio 1.2 RATIO (0.9-2.4); AST(SGOT) 26 U/L (15-37); Alanine Aminotransfer ALT/SGPT 50 U/L (13-56); Albumin, Serum 4.1 g/dL (3.2-5.0); Alkaline Phosphatase 83 U/L (45-117); Anion Gap 6 (5-15); BUN 18 mg/dL (7-18); BUN/Creat Ratio 23.3 RATIO (10-20); Calcium,Total 8.8 mg/dL (8.5-10.1); Chloride 104 mmol/L (98-107); Cholesterol 140 mg/dL (200); Creatinine, Serum 0.77 mg/dL (0.55-1.02); EST Glomerular Filtration Rate 81 mL/min (>60); Est Glom Filt Rate - Afr Amer 99 mL/min (>60); Globulin 3.3 g/dL (2.2-4.2); Glucose 106 mg/dL (74-106); High Density Lipoprotein 67 mg/dL; Potassium 4.1 mmol/L (3.5-5.1); Protein, Total 7.4 g/dL (6.4-8.2); Sodium Level 138 mmol/L (136-145); Triglycerides 113 mg/dL; Very Low Density Lipoprotein 23 mg/dL (5-40)
[2019-09-23 18:42] LABS: Hemoglobin A1c 7.7 % (4.2-6.3)
== END | disposition home or self-care (01) ==
LOC: MFPLAB 16:02
PROVIDERS: PCP Family Medicine; Referring Provider Family Medicine; Visit Provider Family Medicine
DX: E11.9 Type 2 diabetes mellitus without complications (principal); E78.5 Hyperlipidemia, unspecified
CPT/HCPCS: 36415; 80053; 80061; 83036; 85025

== ENCOUNTER → 2019-11-27 | Outpatient (CLI) | payer OTHER, SELFPAY ==
--- NOTE | 2019-11-27 13:21 | MRI_ITS ---
STUDY: MRI BRAIN WITH AND WITHOUT CONTRAST REASON FOR EXAM: Female, 59 years old. migraines, increase in frequency TECHNIQUE: Standardized multiplanar fat and water weighted pulse sequences were obtained. IV Dotarem 15ml was administered for the contrast portion of the examination. COMPARISON: None. FINDINGS: Normal size of the ventricles and extra-axial spaces for the patient''s age. Normal white matter tracts of the supratentorial brain. There is no evidence for recent intracranial ischemia or other cause of cytotoxic edema on diffusion weighted imaging (DWI). Normal T2* images of the brain without demonstrated susceptibility artifact. There is no demonstrated hemosiderin stain. Normal bilateral basal ganglia. Normal thalami. There is no extra-axial fluid accumulation. Normal flow voids within the major intracranial circulation suggesting patency by spin echo criteria. Normal venous enhancement. There is no enhancing intra-axial or extra-axial abnormality. Normal sella turcica, pituitary gland, infundibular stalk, optic chiasm and hypothalamus. Normal tectal plate and pineal gland. Normal midbrain, lui and medulla. Normal cerebellum. Normal basal cisterns. Normal bilateral temporal bones. Normal bilateral internal auditory canals. No demonstrated orbital abnormality, within the constraints of a routine brain study. Normal visualized paranasal sinuses. Normal calvarium and skull base. Normal visualized soft tissue structures. Normal visualized upper cervical spine. MRI/Brain W/WO Contrast IMPRESSION: Normal unenhanced and enhanced MRI of the brain. Electronically Signed: Grover Gurrola MD at 17:20 EDT Tel , Service support ,
== END | disposition home or self-care (01) ==
LOC: MRI 13:12
PROVIDERS: PCP Family Medicine; Referring Provider Family Medicine; Visit Provider Family Medicine
DX: G43.909 Migraine, unspecified, not intractable, without status migrainosus (principal)
CPT/HCPCS: 70553; A9575

== ENCOUNTER → 2019-12-17 16:17 | Outpatient (CLI) | payer OTHER, SELFPAY ==
[2019-12-17 18:25] LABS: Hemoglobin A1c 6.5 % (3.8-5.6)
[2019-12-17 18:28] LABS: Microalbumin,Random Urine 10.2 mg/L (NO RANGE EST.); Microalbumin:Creatinine Ratio 9.7 mg/g CRE (<30 mg/g CRE)
[2019-12-17 18:33] LABS: ALB/GLOB Ratio 1.2 RATIO (0.9-2.4); AST(SGOT) 30 U/L (15-37); Alanine Aminotransfer ALT/SGPT 58 U/L (13-56); Albumin, Serum 4.1 g/dL (3.2-5.0); Alkaline Phosphatase 82 U/L (45-117); Anion Gap 7 (5-15); BUN 23 mg/dL (7-18); BUN/Creat Ratio 23.9 RATIO (10-20); Calcium,Total 8.9 mg/dL (8.5-10.1); Chloride 105 mmol/L (98-107); Creatinine, Serum 0.96 mg/dL (0.55-1.02); EST Glomerular Filtration Rate 63 mL/min (>60); Est Glom Filt Rate - Afr Amer 76 mL/min (>60); Globulin 3.3 g/dL (2.2-4.2); Glucose 98 mg/dL (74-106); Potassium 4.1 mmol/L (3.5-5.1); Protein, Total 7.4 g/dL (6.4-8.2); Sodium Level 140 mmol/L (136-145)
== END ==
PROVIDERS: PCP Family Medicine; Referring Provider Family Medicine; Visit Provider Family Medicine
DX: R94.5 Abnormal results of liver function studies (principal); E11.9 Type 2 diabetes mellitus without complications
CPT/HCPCS: 36415; 80053; 82043; 82570; 83036

== ENCOUNTER → 2020-02-18 | Outpatient (CLI) | payer OTHER, SELFPAY ==
[2020-02-18 15:21] LABS: ALB/GLOB Ratio 1.5 RATIO (0.9-2.4); AST(SGOT) 35 U/L (15-37); Alanine Aminotransfer ALT/SGPT 50 U/L (13-56); Albumin, Serum 4.4 g/dL (3.2-5.0); Alkaline Phosphatase 83 U/L (45-117); Anion Gap 3 (5-15); BUN 13 mg/dL (7-18); BUN/Creat Ratio 19.7 RATIO (10-20); Calcium,Total 9.4 mg/dL (8.5-10.1); Chloride 106 mmol/L (98-107); Creatinine, Serum 0.66 mg/dL (0.55-1.02); EST Glomerular Filtration Rate 98 mL/min (>60); Est Glom Filt Rate - Afr Amer 118 mL/min (>60); Globulin 2.9 g/dL (2.2-4.2); Glucose 129 mg/dL (74-106); Magnesium 2.2 mg/dL (1.6-2.6); Potassium 4.7 mmol/L (3.5-5.1); Protein, Total 7.3 g/dL (6.4-8.2); Sodium Level 139 mmol/L (136-145)
== END | disposition home or self-care (01) ==
LOC: MTLAB 12:35
PROVIDERS: PCP Family Medicine; Referring Provider Family Medicine; Visit Provider Family Medicine
DX: R19.7 Diarrhea, unspecified (principal)
CPT/HCPCS: 36415; 80053; 83735

== ENCOUNTER → 2020-05-17 | Outpatient (CLI) | payer OTHER, SELFPAY ==
[2020-05-11 15:50] VITALS: BMI 34.6
[2020-05-17 18:41] LABS: ALB/GLOB Ratio 1.1 RATIO (0.9-2.4); AST(SGOT) 29 U/L (15-37); Alanine Aminotransfer ALT/SGPT 56 U/L (13-56); Albumin, Serum 4.1 g/dL (3.2-5.0); Alkaline Phosphatase 77 U/L (45-117); Anion Gap 3 (5-15); BUN 14 mg/dL (7-18); BUN/Creat Ratio 18.7 RATIO (10-20); Calcium,Total 9.8 mg/dL (8.5-10.1); Chloride 104 mmol/L (98-107); Cholesterol 151 mg/dL (200); Creatinine, Serum 0.75 mg/dL (0.55-1.02); EST Glomerular Filtration Rate 84 mL/min (>60); Est Glom Filt Rate - Afr Amer 102 mL/min (>60); Globulin 3.6 g/dL (2.2-4.2); Glucose 123 mg/dL (74-106); High Density Lipoprotein 69 mg/dL; Potassium 4.3 mmol/L (3.5-5.1); Protein, Total 7.7 g/dL (6.4-8.2); Sodium Level 138 mmol/L (136-145); Triglycerides 112 mg/dL; Very Low Density Lipoprotein 22 mg/dL (5-40)
[2020-05-17 18:43] LABS: Hemoglobin A1c 7.2 % (3.8-5.6)
[2020-05-17 18:59] LABS: Microalbumin,Random Urine 15.9 mg/L (NO RANGE EST.); Microalbumin:Creatinine Ratio 15.4 mg/g CRE (<30 mg/g CRE)
== END | disposition home or self-care (01) ==
LOC: MFPLAB 15:01
PROVIDERS: PCP Family Medicine; Visit Provider Family Medicine
DX: E78.5 Hyperlipidemia, unspecified (principal); E11.9 Type 2 diabetes mellitus without complications; R79.89 Other specified abnormal findings of blood chemistry
CPT/HCPCS: 36415; 80053; 80061; 82043; 82570; 83036

== ENCOUNTER → 2020-11-17 13:28 | Outpatient (CLI) | payer BC, SELFPAY ==
[2020-05-11 15:50] VITALS: BMI 34.6
[2020-11-17 15:42] LABS: AST(SGOT) 58 U/L (15-37); Alanine Aminotransfer ALT/SGPT 294 U/L (13-56); Albumin, Serum 3.7 g/dL (3.2-5.0); Alkaline Phosphatase 153 U/L (45-117); Anion Gap 6 (5-15); BUN 12 mg/dL (7-18); BUN/Creat Ratio 15.7 RATIO (10-20); Chloride 102 mmol/L (98-107); Cholesterol 271 mg/dL (200); Creatinine, Serum 0.76 mg/dL (0.55-1.02); EST Glomerular Filtration Rate 82 mL/min (>60); Est Glom Filt Rate - Afr Amer 100 mL/min (>60); Globulin 3.6 g/dL (2.2-4.2); Glucose 248 mg/dL (74-106); High Density Lipoprotein 57 mg/dL; Potassium 4.3 mmol/L (3.5-5.1); Protein, Total 7.3 g/dL (6.4-8.2); Sodium Level 136 mmol/L (136-145); Triglycerides 151 mg/dL; Very Low Density Lipoprotein 30 mg/dL (5-40)
[2020-11-17 15:46] LABS: Microalbumin,Random Urine 34.4 mg/L (NO RANGE EST.); Microalbumin:Creatinine Ratio 19.5 mg/g CRE (<30 mg/g CRE)
== END ==
PROVIDERS: PCP Family Medicine; Referring Provider Family Medicine; Visit Provider Family Medicine
DX: E78.5 Hyperlipidemia, unspecified (principal); E11.9 Type 2 diabetes mellitus without complications
CPT/HCPCS: 36415; 80053; 80061; 82043; 82570; 83036

== ENCOUNTER → 2020-11-24 10:18 | Outpatient (CLI) | payer BC, SELFPAY ==
[2020-05-11 15:50] VITALS: BMI 34.6
[2020-11-24 12:54] LABS: AST(SGOT) 24 U/L (15-37); Alanine Aminotransfer ALT/SGPT 90 U/L (13-56); Albumin, Serum 3.9 g/dL (3.2-5.0); Alkaline Phosphatase 127 U/L (45-117); Bilirubin, Direct 0.09 mg/dL (0.00-0.30); Globulin 3.2 g/dL (2.2-4.2); Protein, Total 7.1 g/dL (6.4-8.2)
[2020-11-25 08:09] LABS: HEPATITIS B SURFACE AG Negative (Negative); Hepatitis A AB, Total Negative (Negative); Hepatitis A IgM Antibody Negative (Negative); Hepatitis B Core AB IgM Negative (Negative); Hepatitis B Core Ab Total Negative (Negative); Hepatitis C Ab <0.1 s/co ratio (0.0-0.9)
[2020-11-25 09:40] LABS: Hep B Surface Antibodies Non Reactive (.)
== END ==
LOC: MFPLAB 10:18
PROVIDERS: PCP Family Medicine; Referring Provider Family Medicine; Visit Provider Family Medicine
DX: R79.89 Other specified abnormal findings of blood chemistry (principal)
CPT/HCPCS: 36415; 80076; 86704; 86705; 86706; 86708; 86709; 86803; 87340

== ENCOUNTER → 2021-05-31 09:31 | Outpatient (CLI) | payer BC, SELFPAY ==
[2021-05-31 12:32] LABS: Absolute Lymphocyte Count 2.74 X10^3/uL (0.83-4.51); Absolute Neutrophil Count 5.4 X10^3/uL (2.0-7.7); Basophil# 0.05 X10^3/uL; Basophil% 0.5 % (0-1); Eosinophil# 0.33 X10^3/uL; Eosinophils% 3.6 % (0-5); Hemoglobin 14.1 g/dL (12.0-15.0); Lymphocyte # 2.74 X10^3/ul (0.83-4.51); Mean Corpuscular Hgb 28.7 pg (27.0-32.0); Mean Corpuscular Volume 89.4 fL (81-99); Mean Platelet Vol. 10.6 fl (6.2-12.0); Monocyte# 0.56 X10^3/uL; Monocyte% 6.1 % (0-10); NRBC Flagged by Analyzer 0 % (0-5); Neutrophil # 5.42 X10^3/uL (2.7-7.7); Neutrophil % 59.5 % (47-70); Platelet Count 416 K/mm3 (150-450); RBC Distribution Width CV 12.1 % (11.6-14.6); RBC Distribution Width SD 39.8 fl (35.1-43.9); Red Blood Count 4.92 M/mm3 (4.2-5.4); White Blood Count 9.1 K/mm3 (4.4-11.0)
[2021-05-31 12:48] LABS: ALB/GLOB Ratio 1.1 RATIO (0.9-2.4); AST(SGOT) 37 U/L (15-37); Alanine Aminotransfer ALT/SGPT 84 U/L (13-56); Alkaline Phosphatase 100 U/L (45-117); Anion Gap 7 (5-15); BUN 17 mg/dL (7-18); BUN/Creat Ratio 24.3 RATIO (10-20); Calcium,Total 9.5 mg/dL (8.5-10.1); Chloride 104 mmol/L (98-107); Cholesterol 133 mg/dL (200); EST Glomerular Filtration Rate 91 mL/min (>60); Est Glom Filt Rate - Afr Amer 110 mL/min (>60); Globulin 3.6 g/dL (2.2-4.2); Glucose 170 mg/dL (74-106); High Density Lipoprotein 57 mg/dL; Potassium 4.1 mmol/L (3.5-5.1); Protein, Total 7.6 g/dL (6.4-8.2); Sodium Level 139 mmol/L (136-145); Triglycerides 81 mg/dL; Very Low Density Lipoprotein 16 mg/dL (5-40)
[2021-05-31 12:52] LABS: Hemoglobin A1c 8.8 % (3.8-5.6)
[2021-05-31 13:10] LABS: Microalbumin,Random Urine 11.1 mg/L (NO RANGE EST.); Microalbumin:Creatinine Ratio 21.9 mg/g CRE (<30 mg/g CRE)
== END ==
LOC: MFPLAB 09:32
PROVIDERS: PCP Family Medicine; Referring Provider Family Medicine; Visit Provider Family Medicine
DX: E11.69 Type 2 diabetes mellitus with other specified complication (principal)
CPT/HCPCS: 36415; 80053; 80061; 82043; 82570; 83036; 85025

== ENCOUNTER 2021-08-19 17:25 | Outpatient (CLI) | payer BC, SELFPAY | END 2021-08-19 23:59 | disposition short-term general hospital (02) | PROVIDERS: PCP Family Medicine; Visit Provider Family Medicine | DX: B34.9 Viral infection, unspecified (principal) | CPT/HCPCS: 87635; U0003; U0005 ==

== ENCOUNTER 2021-08-24 13:35 | Outpatient (CLI) | payer BC, SELFPAY ==
[2021-08-24 15:12] LABS: Absolute Lymphocyte Count 2.77 X10^3/uL (0.83-4.51); Absolute Neutrophil Count 7.4 X10^3/uL (2.0-7.7); Basophil# 0.08 X10^3/uL; Basophil% 0.7 % (0-1); Eosinophil# 0.26 X10^3/uL; Eosinophils% 2.3 % (0-5); Hematocrit 44.2 % (37-47); Hemoglobin 14.6 g/dL (12.0-15.0); Lymphocyte # 2.77 X10^3/ul (0.83-4.51); Lymphocyte % 24.9 % (19-41); Mean Corpuscular Hgb 28.5 pg (27.0-32.0); Mean Corpuscular Volume 86.2 fL (81-99); Mean Platelet Vol. 10.1 fl (6.2-12.0); Monocyte# 0.63 X10^3/uL; Monocyte% 5.7 % (0-10); NRBC Flagged by Analyzer 0 % (0-5); Neutrophil # 7.36 X10^3/uL (2.7-7.7); Neutrophil % 66.1 % (47-70); Platelet Count 385 K/mm3 (150-450); RBC Distribution Width CV 12.2 % (11.6-14.6); RBC Distribution Width SD 38.2 fl (35.1-43.9); Red Blood Count 5.13 M/mm3 (4.2-5.4); White Blood Count 11.1 K/mm3 (4.4-11.0)
[2021-08-24 15:41] LABS: Microalbumin,Random Urine 64.7 mg/L (NO RANGE EST.); Microalbumin:Creatinine Ratio 112.1 mg/g CRE (<30 mg/g CRE)
[2021-08-24 18:22] LABS: ALB/GLOB Ratio 1.4 RATIO (0.9-2.4); AST(SGOT) 49 U/L (15-37); Alanine Aminotransfer ALT/SGPT 98 U/L (13-56); Albumin, Serum 4.1 g/dL (3.2-5.0); Alkaline Phosphatase 83 U/L (45-117); Anion Gap 11 (5-15); BUN 17 mg/dL (7-18); BUN/Creat Ratio 20.5 RATIO (10-20); Chloride 104 mmol/L (98-107); Cholesterol 114 mg/dL (200); Creatinine, Serum 0.83 mg/dL (0.55-1.02); EST Glomerular Filtration Rate 75 mL/min (>60); Est Glom Filt Rate - Afr Amer 90 mL/min (>60); Globulin 2.9 g/dL (2.2-4.2); Glucose 194 mg/dL (74-106); High Density Lipoprotein 50 mg/dL; Potassium 3.9 mmol/L (3.5-5.1); Sodium Level 139 mmol/L (136-145); Thyroid Stim Hormone (TSH) 1.17 uIU/mL (0.358-3.74); Triglycerides 138 mg/dL; Very Low Density Lipoprotein 28 mg/dL (5-40)
== END 2021-08-24 23:59 | disposition short-term general hospital (02) ==
LOC: MFPLAB 13:35
PROVIDERS: PCP Family Medicine; Referring Provider Family Medicine; Visit Provider Family Medicine
DX: E11.9 Type 2 diabetes mellitus without complications (principal)
CPT/HCPCS: 36415; 80053; 80061; 82043; 82570; 83036; 84443; 85025

== ENCOUNTER 2021-10-12 08:36 | Outpatient (CLI) | payer BC, SELFPAY ==
[2021-10-12 10:30] LABS: Vitamin B12 414 pg/mL (211-911); Vitamin D,25 Hydroxy 11.3 ng/mL
[2021-10-12 10:41] LABS: Thyroid Stim Hormone (TSH) 2.07 uIU/mL (0.358-3.74)
[2021-10-12 10:47] LABS: Microalbumin,Random Urine 6.4 mg/L (NO RANGE EST.); Microalbumin:Creatinine Ratio 11.4 mg/g CRE (<30 mg/g CRE)
== END 2021-10-12 23:59 | disposition home or self-care (01) ==
LOC: MFPLAB 08:37
PROVIDERS: PCP Family Medicine; Referring Provider Family Medicine; Visit Provider Family Medicine
DX: R53.83 Other fatigue (principal); E11.21 Type 2 diabetes mellitus with diabetic nephropathy
CPT/HCPCS: 36415; 82043; 82306; 82570; 82607; 84443

== ENCOUNTER 2021-11-08 14:17 | Outpatient (CLI) | payer BC, SELFPAY ==
[2021-11-08 17:27] LABS: Absolute Lymphocyte Count 3.05 X10^3/uL (0.83-4.51); Absolute Neutrophil Count 6.4 X10^3/uL (2.0-7.7); Basophil# 0.06 X10^3/uL; Basophil% 0.6 % (0-1); Eosinophil# 0.28 X10^3/uL; Eosinophils% 2.6 % (0-5); Hematocrit 47.3 % (37-47); Hemoglobin 15.5 g/dL (12.0-15.0); Lymphocyte # 3.05 X10^3/ul (0.83-4.51); Lymphocyte % 28.7 % (19-41); Mean Corp Hgb Conc 32.8 g/dL (32-36); Mean Corpuscular Hgb 28.3 pg (27.0-32.0); Mean Corpuscular Volume 86.5 fL (81-99); Mean Platelet Vol. 10.2 fl (6.2-12.0); Monocyte# 0.78 X10^3/uL; Monocyte% 7.3 % (0-10); NRBC Flagged by Analyzer 0 % (0-5); Neutrophil # 6.43 X10^3/uL (2.7-7.7); Neutrophil % 60.6 % (47-70); Platelet Count 386 K/mm3 (150-450); RBC Distribution Width CV 12.3 % (11.6-14.6); RBC Distribution Width SD 39.1 fl (35.1-43.9); Red Blood Count 5.47 M/mm3 (4.2-5.4); White Blood Count 10.6 K/mm3 (4.4-11.0)
[2021-11-08 18:00] LABS: Vitamin B12 336 pg/mL (211-911); Vitamin D,25 Hydroxy 33.8 ng/mL
[2021-11-08 18:02] LABS: Cholesterol 132 mg/dL (200); High Density Lipoprotein 50 mg/dL; T4 Free Direct 1.04 ng/dL (0.76-1.46); Thyroid Stim Hormone (TSH) 1.52 uIU/mL (0.358-3.74); Triglycerides 121 mg/dL; Very Low Density Lipoprotein 24 mg/dL (5-40)
[2021-11-08 18:05] LABS: Hemoglobin A1c 6.8 % (3.8-5.6)
== END 2021-11-08 23:59 | disposition home or self-care (01) ==
LOC: MFPLAB 14:22
PROVIDERS: PCP Family Medicine; Referring Provider Family Medicine; Visit Provider Family Medicine
DX: R53.83 Other fatigue (principal); E11.9 Type 2 diabetes mellitus without complications; E55.9 Vitamin D deficiency, unspecified
CPT/HCPCS: 36415; 80061; 82306; 82607; 83036; 84439; 84443; 85025

== ENCOUNTER 2021-11-11 17:37 | Outpatient (CLI) | payer BC, SELFPAY ==
[2021-11-11 18:00] LABS: CREATININE FINGERSTICK 0.8 mg/dL (0.55-1.02); EGFR FINGERSTICK > 60.0000 mL/min (>60)
--- NOTE | 2021-11-11 18:30 | MRI_ITS ---
EXAM: MR HEAD WITHOUT AND WITH INTRAVENOUS CONTRAST CLINICAL INDICATION: LACK OF COORDINATION TECHNIQUE: Multiplanar and multisequence MR images of the brain were obtained without and with intravenous contrast. This report was created using [employer] report generation technology. CONTRAST: 15 mL of IV Dotarem. COMPARISON: MRI brain with and without contrast 11/27/2019. FINDINGS: BRAIN AND EXTRA-AXIAL SPACES: Unremarkable. No intra- or extra-axial hemorrhage. No evidence of acute infarct. No intracranial mass or mass effect. There is preservation of the burns/white matter interface. Posterior fossa structures are normal. Normal ventricles and cisterns. SELLA: Unremarkable. Normal sella turcica, pituitary gland, infundibular stalk, optic chiasm and hypothalamus. AUDITORY SYSTEM: Unremarkable. The internal auditory canals are patent. BONES/JOINTS: Unremarkable. No discrete lytic or blastic abnormalities. SINUSES: Unremarkable as visualized. Clear. MASTOID AIR CELLS: Unremarkable as visualized. Clear. ORBITS: Unremarkable as visualized. Both globes, extraocular muscles, optic nerves and retrobulbar fat appear unremarkable. VASCULATURE: Unremarkable as visualized. Normal flow voids in the major intracranial circulation. MRI/Brain W/WO Contrast IMPRESSION: Normal MRI brain without and with intravenous contrast and unchanged since 11/27/2019. Electronically Signed: Sharath Gonzales MD at 19:59 EDT ,
== END 2021-11-11 23:59 | disposition home or self-care (01) ==
LOC: MRI 17:39
PROVIDERS: PCP Family Medicine; Visit Provider Family Medicine
DX: R27.8 Other lack of coordination (principal)
CPT/HCPCS: 70553; A9575

== ENCOUNTER 2021-11-16 17:01 | Outpatient (CLI) | payer BC, SELFPAY ==
[2021-11-16 18:06] LABS: Erythrocyte Sedimentation Rate 4 mm/hr (0-30)
[2021-11-16 18:22] LABS: Internal QC Validated? YES +Cl - CLEAR BKGD; Monotest Negative (Negative)
[2021-11-18 08:11] LABS: CMV Antibody IgG < 0.60 U/mL (0.00-0.59)
== END 2021-11-16 23:59 | disposition home or self-care (01) ==
LOC: MTLAB 17:01
PROVIDERS: PCP Family Medicine; Referring Provider Family Medicine; Visit Provider Family Medicine
DX: R53.83 Other fatigue (principal)
CPT/HCPCS: 36415; 85652; 86308; 86644

== ENCOUNTER → 2021-12-07 | Outpatient (CLI) | payer BC, SELFPAY ==
--- NOTE | 2021-12-07 09:26 | TELEMED_ITS ---
[facility] Tele[facility] has confirmed receipt of a request for visit. This document confirms receipt of the order initiating the consult. To find the results of the consultation, please view the patient's reports for the scanned Telemed Consult.
== END | disposition home or self-care (01) ==
LOC: PSN 08:20
PROVIDERS: PCP Family Medicine; Referring Provider Family Medicine; Visit Provider Family Medicine
DX: R56.9 Unspecified convulsions (principal)
CPT/HCPCS: 95819

== ENCOUNTER → 2021-12-28 | Outpatient (CLI) | payer BC, SELFPAY ==
--- NOTE | 2021-12-28 11:40 | STRESSREP ---
Stress Test Report Exercise myocardial perfusion stress test. 61-year-old lady with a history of chest pain. Stress protocol: Resting EKG demonstrates normal sinus rhythm with a rate of 72 bpm resting blood pressure is 110/78 mmHg. The patient exercised according to the regular Endy protocol for a total duration of 4 minutes and 13 seconds. Patient completed 1 minute and 30 seconds into stage II of the Endy protocol. The maximum heart rate attained was 137 bpm which was 85% of max impacted heart rate the maximum workload was 7 metabolic equivalents. At rest there were no ST or T wave changes noted to suggest ischemia and at peak exercise upsloping ST changes were noted which did not meet the criteria for ischemia. No clinical angina was noted. The peak blood pressure was 116/80 mmHg. Myocardial perfusion protocol. 11.1 mCi of technetium 99m sestamibi was injected at rest. The patient exercised according to the regular Endy protocol. At peak exercise 33.8 mCi of technetium 99m sestamibi was injected stress images were obtained stress and rest images were reconstructed and compared in the short axis vertical long and horizontal long axis. Gated images were also obtained to Perfusion SPECT analysis: Review of the stress images demonstrate normal uptake of tracer noted in all areas of the myocardium. The resting images similar demonstrate normal uptake of tracer noted in all areas of the myocardium. No areas of reversibility are noted suggest ischemia and no previous infarct is noted. Gated SPECT analysis: The gated ejection fraction is noted to be 76%. Conclusion: Normal exercise myocardial perfusion stress test at a moderate workload. Preserved ejection fraction.
== END | disposition home or self-care (01) ==
LOC: CVS 06:39
PROVIDERS: PCP Family Medicine; Visit Provider Family Medicine
DX: R06.02 Shortness of breath (principal)
CPT/HCPCS: 78452; 93017; A9500; A4216

== ENCOUNTER 2022-01-05 13:30 | Outpatient (RCR) | payer BC, SELFPAY ==
--- NOTE | 2021-12-19 14:31 | HP.PTEVAL ---
Patient's Visit Information LINDA GALE is a 61 year old F referred to Physical Therapy by Dr. Tommy Rothman MD with a diagnosis of vertigo. Date of Evaluation: 12/19/21 Physical Therapist: Shin Lopez, RAUL, OCS, CSCS - Visit Plan Frequency: 1-2x /Week Duration: 4-6 Weeks Plan: 1-2x/week as needed for 2-4 weeks for positional treatments and exercises as needed. l post canal positive and treated today on day one. - Subjective I have a bad case of vertigo. Had it 7 yrs ago. Now cannot walk straight and walks unsteady. spins sometimes and is caused by lying on L side. turned the other day and fell over due to imbalance. It has been worse for 2+ months and has been off work since first September. Gets clammy and shaky at times. 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 Sleep is not great, which is normal but this is worse lately. Basic ADLS are done I. avoids cleaning house and this upsets dtr. Can get shaky if she moves too quick, gets sick to stomach. - Objective Walks I into and out of PT, transfers I, steps reciprocal without rail. cervical aROM WFL without pain, UE AROM WNL and no myotomal asymmetries. - R HD. + L HD for up torsional nystagmus 10 seconds, treated with Rene Forrester. - Balance/Special Test Scores Functional Gait Assessment Score: 29 % Disability: 3.3400 Dizziness Score: 56 - Goals Goal 1:: Abolish dizzy feeling Goal Time Frame: 2-4 Weeks Goal 2:: Balance 30/30 and back to baseline. Goal Time Frame: 2-4 Weeks Goal 3:: Pt feel ready to RTW Goal Time Frame: 2-4 Weeks - Rehabilitation Potential Physical Therapy Diagnosis: BPPV L post canal Rehabilitation Potential: Good - Anticipated Interventions Patient/Client Instruction: Educate patient on: Condition, Plan of Care For the Purpose of:: To improve muscle performance and motor function, To increase tolerance to activity/condition/position Comment: vestibular positional ex For the Purpose of:: To increase tolerance to activity/condition/position, To improve balance, To improve safety with gait Thank you for the opportunity to evaluate your patient. For Medicare and Medicare HMO plans, please review the plan of care and approve it. It will need to be FAXED BACK to us at [phone] for Medicare purposes. For Medicare only, by signing this I certify the plan of care. Please let me know if there are questions or concerns regarding this plan of care. Physician Signature: Date:
--- NOTE | 2022-03-03 07:30 | HP.PT.NRP ---
LINDA GALE was seen in my office for initial evaluation on 12/19/21. The following Plan of Care was established for this patient: Initial Frequency: 1-2x /Week Initial Duration: 4-6 Weeks Patient/Client Instruction: Educate patient on: Condition, Plan of Care For the Purpose of:: To improve muscle performance and motor function, To increase tolerance to activity/condition/position For the Purpose of:: To increase tolerance to activity/condition/position, To improve balance, To improve safety with gait This patient was last seen in our office 01/05/22. Pertinent comments regarding their Physical therapy will appear below: Pt seen 4 visits of POc and treated with different positional treatments. She was to f/u a week later and was seeing an ENT doctor. she did not attend her PT recheck or reschedule. At this point, it has been nearly two months and I will discontinue due to nonattendance. At this point I will be discontinuing this patient from physical therapy. I would be happy to see this patient again in the future if found appropriate by the physician. Thank you! Shin Lopez, DPT, OCS, CSCS Balance/Gait/Functional tests - Balance/Special Test Scores Functional Gait Assessment Score: 3 % Disability: 90.0000 Dizziness Score: 56
== END 2022-01-05 19:00 | disposition home or self-care (01) ==
LOC: PT 13:30
PROVIDERS: PCP Family Medicine; Visit Provider Family Medicine
DX: R42 Dizziness and giddiness (principal)
CPT/HCPCS: 97161; 97530

== ENCOUNTER → 2022-03-06 | Outpatient (CLI) | payer BC, SELFPAY ==
[2022-03-06 12:11] LABS: Absolute Lymphocyte Count 2.99 X10^3/uL (0.83-4.51); Absolute Neutrophil Count 5.6 X10^3/uL (2.0-7.7); Basophil# 0.06 X10^3/uL; Basophil% 0.6 % (0-1); Eosinophil# 0.29 X10^3/uL; Hematocrit 44.7 % (37-47); Hemoglobin 14.7 g/dL (12.0-15.0); Lymphocyte # 2.99 X10^3/ul (0.83-4.51); Lymphocyte % 30.8 % (19-41); Mean Corp Hgb Conc 32.9 g/dL (32-36); Mean Corpuscular Hgb 29.7 pg (27.0-32.0); Mean Corpuscular Volume 90.3 fL (81-99); Mean Platelet Vol. 10.2 fl (6.2-12.0); Monocyte# 0.75 X10^3/uL; Monocyte% 7.7 % (0-10); NRBC Flagged by Analyzer 0 % (0-5); Neutrophil % 57.6 % (47-70); Platelet Count 370 K/mm3 (150-450); RBC Distribution Width CV 12.7 % (11.6-14.6); RBC Distribution Width SD 41.5 fl (35.1-43.9); Red Blood Count 4.95 M/mm3 (4.2-5.4); White Blood Count 9.7 K/mm3 (4.4-11.0)
[2022-03-06 12:29] LABS: Hemoglobin A1c 8.2 % (3.8-5.6)
[2022-03-06 12:33] LABS: ALB/GLOB Ratio 1.2 RATIO (0.9-2.4); AST(SGOT) 25 U/L (15-37); Alanine Aminotransfer ALT/SGPT 49 U/L (13-56); Albumin, Serum 3.8 g/dL (3.2-5.0); Alkaline Phosphatase 78 U/L (45-117); Anion Gap 6 (5-15); BUN 16 mg/dL (7-18); BUN/Creat Ratio 21.6 RATIO (10-20); Chloride 105 mmol/L (98-107); Cholesterol 113 mg/dL (200); Creatinine, Serum 0.74 mg/dL (0.55-1.02); EST Glomerular Filtration Rate 85 mL/min (>60); Est Glom Filt Rate - Afr Amer 103 mL/min (>60); Globulin 3.2 g/dL (2.2-4.2); Glucose 150 mg/dL (74-106); High Density Lipoprotein 52 mg/dL; Potassium 4.2 mmol/L (3.5-5.1); Sodium Level 138 mmol/L (136-145); Thyroid Stim Hormone (TSH) 1.93 uIU/mL (0.358-3.74); Triglycerides 98 mg/dL; Very Low Density Lipoprotein 20 mg/dL (5-40); Vitamin B12 > 2000 pg/mL (211-911); Vitamin D,25 Hydroxy 40.6 ng/mL
[2022-03-06 12:40] LABS: Microalbumin,Random Urine 71.3 mg/L (NO RANGE EST.); Microalbumin:Creatinine Ratio 135.6 mg/g CRE (<30 mg/g CRE)
== END | disposition home or self-care (01) ==
PROVIDERS: Psychiatry & Neurology Neurology; PCP Family Medicine; Referring Provider Family Medicine; Visit Provider Family Medicine
DX: E11.9 Type 2 diabetes mellitus without complications (principal); R53.83 Other fatigue
CPT/HCPCS: 36415; 80053; 80061; 82043; 82306; 82570; 82607; 83036; 84443; 85025

== ENCOUNTER → 2022-04-11 | Outpatient (CLI) | payer BC, SELFPAY ==
--- NOTE | 2022-04-11 19:24 | TILTTABLE_ITS ---
Staff Staff: Ruma Le, Alyse Ponce and Lucy Gaxiola Summary Pre Test Resting HR: 85 Pre Test Resting BP: 117/74 Minimum Test HR: 90 Maximum Test HR: 116 Minimum Test BP: 84/0 Maximum Test BP: 117/74 Reason for Test Termination: Reached Maximum Test Time Physician Tilt Table Report Patient's Physicians Primary Care Physician: Tommy Rothman Sheetmetal Patternmaker: Kareem Kimball Indications/Diagnosis: Dizziness/Lightheaded Procedure Comments: The patient presented to the tilt table laboratory. She was awake and alert and warm and dry. She had a baseline heart rate of 85 bpm with a baseline blood pr essure of 117/74 mmHg. The cardiac rhythm was normal sinus rhythm. The patient was placed in the 70 degree upright tilt table position for 30 minutes. She remained awake and alert and warm and dry. Her initial heart rate was 90 bpm with a blood pressure 117/74 mmHg with a minimal heart rate of 90 bpm and a minimal blood pressure of 84/- mmHg and a maximal heart rate of 116 bpm and a maximal blood pressure of 110/73 mmHg. Her cardiac rhythm remains sinus rhythm/sinus tachycardia. She noted symptoms of initially feeling lightheaded with the positional change which subsequently improved, feeling cool hands and then warm hands, feeling lightheaded again and a little sweaty , and feeling nauseated. She did not lose consciousness. The patient was returned to the supine position. She had a concluding heart rate of 88 bpm and a concluding blood pressure 130/63 mmHg. She remained in sinus rhythm. She did receive IV normal saline 500 cc bolus based upon her symptoms/findings. She was taking oral intake at the conclusion of the procedure prior to being released home. Summary: 70 degree tilt table study demonstrating considered negative for Positional Or thostatic Tachycardia Syndrome (POTS) as the patient did not meet criteria for Positional Orthostatic Tachycardia Syndrome (POTS) based upon the lack of an increase in heart rate of 30 bpm or more or over 120 bpm within the first 10 minutes of standing in the absence of orthostatic hypotension which the patient did not meet criteria for with respect to a 20 mm drop in systolic blood pressure or a 10 mm drop in diastolic blood pressure within the first 3 minutes of being in the upright position. This note was generated using a voice recognition system and there may be incorrect words, spelling or punctuation that were not noted when reviewing the office note prior to saving.
[2022-04-11 19:29] VITALS: BP 117/74
[2022-04-11 19:32] VITALS: BP 117/74
[2022-04-11 19:45] VITALS: BP 84/0
== END | disposition home or self-care (01) ==
LOC: CVS 08:55
PROVIDERS: PCP Family Medicine; Referring Provider Psychiatry & Neurology Neurology; Visit Provider Psychiatry & Neurology Neurology
DX: R00.0 Tachycardia, unspecified (principal); R42 Dizziness and giddiness
CPT/HCPCS: 93660; J7040; A4216

== ENCOUNTER → 2022-05-03 | Outpatient (CLI) | payer BC, SELFPAY | END | disposition home or self-care (01) | LOC: PSN 11:47 | PROVIDERS: PCP Family Medicine; Referring Provider Internal Medicine Cardiovascular Disease; Visit Provider Internal Medicine Cardiovascular Disease | DX: R00.2 Palpitations (principal); R07.9 Chest pain, unspecified | CPT/HCPCS: 93225; 93226 ==

== ENCOUNTER → 2022-05-04 | Outpatient (CLI) | payer BC, SELFPAY ==
--- NOTE | 2022-05-04 13:42 | ECHOD_ITS ---
Reason For Study: Chest pain Procedure This was a 2D Doppler, Color Flow transthoracic echocardiogram. Exam performed in department. Left Ventricle The left ventricle is normal in size, thickness, sytstolic function, and diastolic function. The left ventricular ejection fraction is 60 %. Right Ventricle Normal right ventricle. Atria The left and right atria are normal. Mitral Valve Trivial mitral valve insufficiency. Tricuspid Valve Normal tricuspid valve. Aortic Valve Trisinus/trileaflet aortic valve. There is no aortic stenosis. Mild (1+) aortic valve insufficiency. Pulmonic Valve The pulmonic valve is not well visualized. Great Vessels Not well visuaized. Pericardium/Pleural No pericardial effusion. Medication 22 gauge I.V. with prn adaptor inserted into right arm. Performed a rapid injection of agitated mix of 9 cc saline and 1cc air to assess for atrial septal defect. MMode/2D Measurements & Calculations LVIDd: 3.6 cm IVSd: 0.89 cm Ao root diam: 3.1 cm LVIDs: 1.9 cm LVPWd: 0.93 cm RVDd: 3.2 cm FS: 45.7 % LAV(MOD-bp): 30.8 ml LVAd ap4: 22.8 cm2 LVAd ap2: 24.1 cm2 LAV(MOD-bp) Indexed: 17.2 ml/m2 LVLd ap4: 7.7 cm LVLd ap2: 7.7 cm LAV(MOD-sp2): 40.7 ml EDV(MOD-sp4): 56.7 ml EDV(MOD-sp2): 63.7 ml LAV(MOD-sp4): 23.3 ml EDV(sp4-el): 57.8 ml EDV(sp2-el): 64.0 ml LVAs ap4: 12.5 cm2 LVAs ap2: 13.2 cm2 LVLs ap4: 6.8 cm LVLs ap2: 6.5 cm ESV(MOD-sp4): 20.4 ml ESV(MOD-sp2): 23.0 ml ESV(sp4-el): 19.6 ml ESV(sp2-el): 22.6 ml EF(MOD-sp4): 64.1 % EF(MOD-sp2): 63.9 % EF(sp4-el): 66.1 % SV(MOD-sp4): 36.3 ml SV(MOD-sp2): 40.7 ml SV(sp4-el): 38.2 ml LA A4 area: 11.4 cm2 LA dimension(2D): 2.9 cm RA A4 area: 10.5 cm2 Time Measurements MV dec time: 0.31 sec Doppler Measurements & Calculations MV E max justice: 59.8 cm/sec Lat Peak E' Justice: 11.5 cm/sec Med Peak E' Justice: 5.0 cm/sec MV A max justice: 91.1 cm/sec E/E' lat: 5.2 E/E' med: 11.9 MV E/A: 0.66 Ao V2 max: 146.4 cm/sec AI max justice: 419.3 cm/sec MV dec slope: 195.5 cm/sec2 Ao max P.6 mmHg AI max P.4 mmHg AI dec slope: 214.3 cm/sec2 AI P1/2t: 573.2 msec LV V1 max: 121.7 cm/sec PA V2 max: 95.3 cm/sec LV V1 max P.9 mmHg ECHO/Echo Complete Interpretation Summary The left ventricular ejection fraction is 60 %. Mild (1+) aortic valve insufficiency. Ordering Physician: Manisha Solis Referring Physician: Tommy Rothman Performed By: Priya Lewis RDCS
--- NOTE | 2022-05-08 08:30 | CCTA.WCONT ---
CCTA w/Cont Coronary Arteries Date of Study:: 05/05/22 Chest pain The patient was brought to the radiology suite and after appropriate informed consent was administered 60 cc of intravenous contrast with gating. Appropriate digital slicing was obtained. Images were reconstructed and displayed in the usual format. LEFT MAIN CORONARY ARTERY: Normal arising from the left coronary cusp [] LEFT ANTERIOR DESCENDING CORONARY ARTERY: No significant stenosis noted in this vessel and it gave her first diagonal vessel [] LEFT CIRCUMFLEX CORONARY ARTERY: Codominant large vessel with a first obtuse marginal branch with no significant stenosis noted mild plaque noted in the midsegment. [] RIGHT CORONARY ARTERY: Codominant vessel with a distal vasculature not very well visualized but the proximal and mid demonstrating no significant stenosis. Mild misregistration artifact noted [] THORACIC AORTA: Normal AORTIC VALVE: Trileaflet Conclusion Minimal atherosclerotic cardiovascular disease noted with no obvious high-grade obstruction noted.
== END | disposition home or self-care (01) ==
LOC: CVS 13:41
PROVIDERS: PCP Family Medicine; Referring Provider Internal Medicine Cardiovascular Disease; Visit Provider Internal Medicine Cardiovascular Disease
DX: R07.9 Chest pain, unspecified (principal)
CPT/HCPCS: 93306; A4216

== ENCOUNTER → 2022-05-05 | Outpatient (CLI) | payer BC, SELFPAY ==
[2022-05-05 13:33] VITALS: BP 102/69; PULSE 69; RESP 16; TEMP 36.2; O2SAT 92; BMI 27.8
[2022-05-05 13:57] VITALS: BP 101/56; PULSE 67
[2022-05-05] MEDS: Nitroglycerin SL (ED/IMG/CATH) 0.4 MG TABLET SL (13:57)
[2022-05-05 14:02] VITALS: BP 93/54; PULSE 69; RESP 16
[2022-05-05 14:05] VITALS: BP 98/55; PULSE 69; RESP 16; O2SAT 95
--- NOTE | 2022-05-05 14:19 | CT_ITS ---
STUDY: CT CHEST WITHOUT CONTRAST REASON FOR EXAM: Female, 61 years old. CHEST PAIN. Cardiac over read. RADIATION DOSAGE (If Supplied By Facility): CTDIvol = ( 31.23 ) mGy, DLP = ( 1119.54 ) mGycm TECHNIQUE: Transaxial imaging was performed without the administration of intravenous contrast material. Multiplanar coronal and sagittal images were reformatted. Individualized dose optimization techniques were used for this CT. COMPARISON: No relevant priors. FINDINGS: CHEST Minimal degree of bibasilar dependent atelectasis. There is no demonstrated pleural abnormality. Normal heart and pericardium. There are multiple small lymph nodes within the mediastinum, which are normal in size and morphology most compatible with reactive lymph hyperplasia. Normal hilar regions. Normal unenhanced pulmonary arteries. Normal aorta arch and descending thoracic aorta. Normal osseous structures. Diffuse fatty infiltration of the liver. CT/Limited Chest CT Cardiac Only IMPRESSION: No acute abnormality is seen. Diffuse fatty infiltration of the liver. Electronically Signed: Delano Blanchard MD at 14:43 EDT ,
[2022-05-05 14:40] LABS: CREATININE FINGERSTICK < 0.9 mg/dL (0.55-1.02); EGFR FINGERSTICK > 60.0000 mL/min (>60)
== END | disposition home or self-care (01) ==
LOC: CT 13:23
PROVIDERS: PCP Family Medicine; Referring Provider Internal Medicine Cardiovascular Disease; Visit Provider Internal Medicine Cardiovascular Disease
DX: R07.9 Chest pain, unspecified (principal)
CPT/HCPCS: 75574; 76380; Q9967; A4216

== ENCOUNTER → 2022-06-19 | Outpatient (CLI) | payer BC, SELFPAY ==
[2022-06-19 17:45] LABS: Absolute Lymphocyte Count 3.23 X10^3/uL (0.83-4.51); Absolute Neutrophil Count 5.3 X10^3/uL (2.0-7.7); Basophil# 0.07 X10^3/uL; Basophil% 0.7 % (0-1); Eosinophil# 0.45 X10^3/uL; Eosinophils% 4.6 % (0-5); Hemoglobin 14.9 g/dL (12.0-15.0); Lymphocyte # 3.23 X10^3/ul (0.83-4.51); Lymphocyte % 32.9 % (19-41); Mean Corp Hgb Conc 32.4 g/dL (32-36); Mean Corpuscular Hgb 29.3 pg (27.0-32.0); Mean Corpuscular Volume 90.6 fL (81-99); Mean Platelet Vol. 10.5 fl (6.2-12.0); Monocyte# 0.73 X10^3/uL; Monocyte% 7.4 % (0-10); NRBC Flagged by Analyzer 0 % (0-5); Neutrophil # 5.32 X10^3/uL (2.7-7.7); Neutrophil % 54.1 % (47-70); Platelet Count 372 K/mm3 (150-450); Red Blood Count 5.08 M/mm3 (4.2-5.4); White Blood Count 9.8 K/mm3 (4.4-11.0)
[2022-06-19 18:22] LABS: ALB/GLOB Ratio 1.2 RATIO (0.9-2.4); AST(SGOT) 36 U/L (15-37); Alanine Aminotransfer ALT/SGPT 89 U/L (13-56); Albumin, Serum 3.9 g/dL (3.2-5.0); Alkaline Phosphatase 78 U/L (45-117); Anion Gap 9 (5-15); BUN 13 mg/dL (7-18); BUN/Creat Ratio 19.8 RATIO (10-20); Calcium,Total 9.1 mg/dL (8.5-10.1); Chloride 106 mmol/L (98-107); Cholesterol 114 mg/dL (200); Creatinine, Serum 0.66 mg/dL (0.55-1.02); EST Glomerular Filtration Rate 97 mL/min (>60); Est Glom Filt Rate - Afr Amer 118 mL/min (>60); Globulin 3.3 g/dL (2.2-4.2); Glucose 141 mg/dL (74-106); High Density Lipoprotein 55 mg/dL; Protein, Total 7.2 g/dL (6.4-8.2); Sodium Level 139 mmol/L (136-145); Triglycerides 98 mg/dL; Very Low Density Lipoprotein 20 mg/dL (5-40)
[2022-06-19 18:31] LABS: Vitamin D,25 Hydroxy 28.7 ng/mL
[2022-06-19 18:52] LABS: Microalbumin:Creatinine Ratio 211.3 mg/g CRE (<30 mg/g CRE)
== END | disposition home or self-care (01) ==
LOC: MFPLAB 14:51
PROVIDERS: PCP Family Medicine; Visit Provider Family Medicine
DX: E11.9 Type 2 diabetes mellitus without complications (principal); E55.9 Vitamin D deficiency, unspecified
CPT/HCPCS: 36415; 80053; 80061; 82043; 82306; 82570; 83036; 85025

== ENCOUNTER → 2022-09-22 | Outpatient (CLI) | payer BC, SELFPAY ==
[2022-09-22 15:37] LABS: Absolute Lymphocyte Count 2.57 X10^3/uL (0.83-4.51); Absolute Neutrophil Count 6.2 X10^3/uL (2.0-7.7); Basophil# 0.09 X10^3/uL; Basophil% 0.9 % (0-1); Eosinophil# 0.36 X10^3/uL; Eosinophils% 3.7 % (0-5); Hematocrit 45.7 % (37-47); Hemoglobin 14.6 g/dL (12.0-15.0); Lymphocyte # 2.57 X10^3/ul (0.83-4.51); Lymphocyte % 26.2 % (19-41); Mean Corp Hgb Conc 31.9 g/dL (32-36); Mean Corpuscular Hgb 28.5 pg (27.0-32.0); Mean Corpuscular Volume 89.3 fL (81-99); Mean Platelet Vol. 10.3 fl (6.2-12.0); Monocyte# 0.58 X10^3/uL; Monocyte% 5.9 % (0-10); NRBC Flagged by Analyzer 0 % (0-5); Neutrophil # 6.19 X10^3/uL (2.7-7.7); Platelet Count 326 K/mm3 (150-450); RBC Distribution Width CV 12.7 % (11.6-14.6); Red Blood Count 5.12 M/mm3 (4.2-5.4); White Blood Count 9.8 K/mm3 (4.4-11.0)
[2022-09-22 15:42] LABS: Hemoglobin A1c 6.6 % (3.8-5.6)
[2022-09-22 15:46] LABS: Vitamin D,25 Hydroxy 17.1 ng/mL
[2022-09-22 15:48] LABS: ALB/GLOB Ratio 1.2 RATIO (0.9-2.4); AST(SGOT) 31 U/L (15-37); Alanine Aminotransfer ALT/SGPT 80 U/L (13-56); Albumin, Serum 3.8 g/dL (3.2-5.0); Alkaline Phosphatase 78 U/L (45-117); Anion Gap 7 (5-15); BUN 20 mg/dL (7-18); BUN/Creat Ratio 25.8 RATIO (10-20); Calcium,Total 9.2 mg/dL (8.5-10.1); Chloride 105 mmol/L (98-107); Cholesterol 114 mg/dL (200); Creatinine, Serum 0.77 mg/dL (0.55-1.02); EST Glomerular Filtration Rate 81 mL/min (>60); Est Glom Filt Rate - Afr Amer 98 mL/min (>60); Globulin 3.2 g/dL (2.2-4.2); Glucose 152 mg/dL (74-106); High Density Lipoprotein 56 mg/dL; Sodium Level 138 mmol/L (136-145); Triglycerides 89 mg/dL; Very Low Density Lipoprotein 18 mg/dL (5-40)
[2022-09-22 16:55] LABS: Microalbumin:Creatinine Ratio 247.4 mg/g CRE (<30 mg/g CRE)
== END | disposition home or self-care (01) ==
LOC: MTLAB 13:07
PROVIDERS: PCP Family Medicine; Referring Provider Family Medicine; Visit Provider Family Medicine
DX: E11.21 Type 2 diabetes mellitus with diabetic nephropathy (principal); E55.9 Vitamin D deficiency, unspecified
CPT/HCPCS: 36415; 80053; 80061; 82043; 82306; 82570; 83036; 85025

== ENCOUNTER → 2022-09-27 | Outpatient (CLI) | payer BC, SELFPAY | END | disposition home or self-care (01) | LOC: MFPLAB 08:07 | PROVIDERS: PCP Family Medicine; Referring Provider Family Medicine; Visit Provider Family Medicine | DX: R53.83 Other fatigue (principal) | CPT/HCPCS: 36415; 82533 ==

== ENCOUNTER → 2022-10-13 | Outpatient (CLI) | payer BC, SELFPAY ==
[2022-10-13 18:21] LABS: Protein, Urine (Random) 130.7 mg/dL (<11.9); Protein:Creat Ratio 1618 mg/g CRE (0-200)
== END | disposition home or self-care (01) ==
PROVIDERS: PCP Family Medicine; Referring Provider Family Medicine; Visit Provider Family Medicine
DX: R79.89 Other specified abnormal findings of blood chemistry (principal)
CPT/HCPCS: 36415; 82570; 84156

== ENCOUNTER → 2022-10-18 | Outpatient (CLI) | payer BC, SELFPAY ==
[2022-10-18 17:16] LABS: 24 Hour Urine Protein 1336.2 mg/24HR (<150 MG/24HR); 24HR. UA Prot. Total Volume 1700 mL; 24HR. Urine Creatinine 0.88 g/24 HR (0.70-1.90); Urine Protein (24 Hour) 78.6 mg/dL (<11.9)
[2022-10-23 19:07] LABS: Cortisol, Urinary Free 13 ug/L (Undefined)
[2022-10-23 19:33] LABS: Cortisol, Free 24Ur 22 ug/24 hr (6-42)
== END | disposition home or self-care (01) ==
LOC: LAB.FUTURE 11:43 → LABSPEC 11:44
PROVIDERS: PCP Family Medicine; Visit Provider Family Medicine
DX: R79.89 Other specified abnormal findings of blood chemistry (principal)
CPT/HCPCS: 81050; 82530; 82570; 84156

== ENCOUNTER → 2023-01-11 | Outpatient (CLI) | payer BC, SELFPAY ==
[2023-01-11 15:16] LABS: Absolute Lymphocyte Count 2.65 X10^3/uL (0.83-4.51); Absolute Neutrophil Count 4.5 X10^3/uL (2.0-7.7); Basophil# 0.06 X10^3/uL; Basophil% 0.7 % (0-1); Eosinophil# 0.38 X10^3/uL; Eosinophils% 4.6 % (0-5); Hematocrit 45.8 % (37-47); Hemoglobin 14.3 g/dL (12.0-15.0); Lymphocyte # 2.65 X10^3/ul (0.83-4.51); Lymphocyte % 32.3 % (19-41); Mean Corp Hgb Conc 31.2 g/dL (32-36); Mean Corpuscular Hgb 28.7 pg (27.0-32.0); Mean Platelet Vol. 10.1 fl (6.2-12.0); Monocyte% 7.3 % (0-10); NRBC Flagged by Analyzer 0 % (0-5); Neutrophil % 54.9 % (47-70); Platelet Count 346 K/mm3 (150-450); RBC Distribution Width CV 12.7 % (11.6-14.6); RBC Distribution Width SD 42.5 fl (35.1-43.9); Red Blood Count 4.98 M/mm3 (4.2-5.4); White Blood Count 8.2 K/mm3 (4.4-11.0)
[2023-01-11 15:51] LABS: Vitamin D,25 Hydroxy 77.7 ng/mL
[2023-01-11 15:55] LABS: ALB/GLOB Ratio 1.1 RATIO (0.9-2.4); AST(SGOT) 113 U/L (15-37); Alanine Aminotransfer ALT/SGPT 297 U/L (13-56); Albumin, Serum 3.7 g/dL (3.2-5.0); Alkaline Phosphatase 132 U/L (45-117); Anion Gap 7 (5-15); BUN 19 mg/dL (7-18); BUN/Creat Ratio 29.7 RATIO (10-20); Calcium,Total 9.2 mg/dL (8.5-10.1); Chloride 107 mmol/L (98-107); Cholesterol 115 mg/dL (200); Creatinine, Serum 0.64 mg/dL (0.55-1.02); EST Glomerular Filtration Rate 100 mL/min (>60); Est Glom Filt Rate - Afr Amer 121 mL/min (>60); Globulin 3.3 g/dL (2.2-4.2); Glucose 125 mg/dL (74-106); High Density Lipoprotein 53 mg/dL; Potassium 4.1 mmol/L (3.5-5.1); Sodium Level 138 mmol/L (136-145); Triglycerides 71 mg/dL; Very Low Density Lipoprotein 14 mg/dL (5-40)
[2023-01-11 16:13] LABS: Ferritin 144 ng/mL (8-252)
[2023-01-11 16:41] LABS: Hemoglobin A1c 7.5 % (3.8-5.6)
[2023-01-14 12:07] LABS: HEPATITIS B SURFACE AG Negative (Negative); Hep C Antibodies Non Reactive (Non Reactive); Hepatitis A IgM Antibody Negative (Negative); Hepatitis B Core AB IgM Negative (Negative)
== END | disposition home or self-care (01) ==
PROVIDERS: Internal Medicine Pulmonary Disease; PCP Family Medicine; Visit Provider Family Medicine
DX: R79.89 Other specified abnormal findings of blood chemistry (principal); E11.9 Type 2 diabetes mellitus without complications; E55.9 Vitamin D deficiency, unspecified; Z86.2 Personal history of diseases of the blood and blood-forming organs and certain disorders involving the immune mechanism
CPT/HCPCS: 36415; 80053; 80061; 80074; 82043; 82306; 82570; 82728; 83036; 85025

== ENCOUNTER → 2023-01-16 | Outpatient (CLI) | payer BC, SELFPAY ==
[2023-01-16 14:07] LABS: AST(SGOT) 35 U/L (15-37); Alanine Aminotransfer ALT/SGPT 157 U/L (13-56); Alkaline Phosphatase 117 U/L (45-117); Bilirubin, Direct 0.14 mg/dL (0.00-0.30); Globulin 3.5 g/dL (2.2-4.2); Protein, Total 7.5 g/dL (6.4-8.2)
== END | disposition home or self-care (01) ==
LOC: MFPLAB 09:57
PROVIDERS: PCP Family Medicine; Visit Provider Family Medicine
DX: R79.89 Other specified abnormal findings of blood chemistry (principal)
CPT/HCPCS: 36415; 80076

== ENCOUNTER → 2023-03-27 | Outpatient (CLI) | payer BC, SELFPAY ==
--- NOTE | 2023-03-27 12:17 | BI_ITS ---
MAMMOGRAPHY - BILATERAL SCREENING REASON FOR EXAM: Female, 62 years old. Routine annual screening examination. PERTINENT HISTORY: Non-contributory. Remote left excisional breast biopsy. TECHNIQUE: Digital bilateral breast adebayo (3D mammographic acquisition) in the CC and MLO projections. 2-D mediolateral oblique (MLO) and craniocaudad (CC) views of both breasts were obtained. CAD: Full Field Digital Mammography with Computer Added Detection was performed. COMPARISON: Comparison is made with prior study dated September 18, 2010. FINDINGS: Breast Composition: The breasts are heterogeneously dense, which may obscure small masses. The previously seen nodular density in the retroareolar region of the left breast has been removed. Stable 1 cm well-defined nodule in the deep slightly upper medial aspect of the right breast. Stable small benign-appearing bilateral axillary lymph nodes. No other significant abnormalities are identified. BI/SCRN MAMM (CAD)W/ADEBAYO BILAT IMPRESSION: Status post excisional biopsy of the previously seen nodule in the retroareolar region of the left breast. Stable appearance of the right breast. Yearly follow-up mammogram recommended. (A) ASSESSMENT CATEGORY: BIRADS Category 2: Benign. A letter regarding these results will be sent to the patient by the facility within 30 days. Approximately 10% of breast cancers are not detected by mammography. A normal mammogram should not delay biopsy of a clinically suspicious abnormality. [id number] Electronically Signed: Delano Blanchard MD at 10:00 EDT ,
== END | disposition home or self-care (01) ==
LOC: OPBI 12:16
PROVIDERS: PCP Family Medicine; Referring Provider Nurse Practitioner Family; Visit Provider Nurse Practitioner Family
DX: Z12.31 Encounter for screening mammogram for malignant neoplasm of breast (principal)
CPT/HCPCS: 77063; 77067

== ENCOUNTER → 2023-04-30 | Outpatient (CLI) | payer BC, SELFPAY ==
[2023-04-30 13:06] LABS: Thyroid Stim Hormone (TSH) 2.44 uIU/mL (0.358-3.74)
[2023-04-30 13:56] LABS: AST(SGOT) 30 U/L (15-37); Alanine Aminotransfer ALT/SGPT 66 U/L (13-56); Albumin, Serum 3.8 g/dL (3.2-5.0); Alkaline Phosphatase 85 U/L (45-117); Bilirubin, Direct 0.15 mg/dL (0.00-0.30); Globulin 3.2 g/dL (2.2-4.2)
== END | disposition home or self-care (01) ==
LOC: MFPLAB 09:58
PROVIDERS: PCP Family Medicine; Visit Provider Internal Medicine Endocrinology, Diabetes & Metabolism
DX: I10 Essential (primary) hypertension (principal); E11.9 Type 2 diabetes mellitus without complications; R79.89 Other specified abnormal findings of blood chemistry
CPT/HCPCS: 36415; 80076; 84443

== ENCOUNTER → 2023-05-02 | Outpatient (CLI) | payer BC, SELFPAY ==
[2023-05-02 12:35] LABS: Absolute Lymphocyte Count 3.42 X10^3/uL (0.83-4.51); Absolute Neutrophil Count 5.8 X10^3/uL (2.0-7.7); Basophil# 0.08 X10^3/uL; Basophil% 0.7 % (0-1); Eosinophils% 4.6 % (0-5); Hematocrit 44.9 % (37-47); Hemoglobin 13.9 g/dL (12.0-15.0); Lymphocyte # 3.42 X10^3/ul (0.83-4.51); Lymphocyte % 31.6 % (19-41); Mean Corpuscular Volume 93.7 fL (81-99); Mean Platelet Vol. 10.5 fl (6.2-12.0); Monocyte# 0.94 X10^3/uL; Monocyte% 8.7 % (0-10); NRBC Flagged by Analyzer 0 % (0-5); Neutrophil # 5.83 X10^3/uL (2.7-7.7); Neutrophil % 53.9 % (47-70); Platelet Count 347 K/mm3 (150-450); RBC Distribution Width CV 12.6 % (11.6-14.6); RBC Distribution Width SD 43.4 fl (35.1-43.9); Red Blood Count 4.79 M/mm3 (4.2-5.4); White Blood Count 10.8 K/mm3 (4.4-11.0)
[2023-05-02 12:49] LABS: ALB/GLOB Ratio 1.2 RATIO (0.9-2.4); AST(SGOT) 23 U/L (15-37); Alanine Aminotransfer ALT/SGPT 59 U/L (13-56); Albumin, Serum 3.8 g/dL (3.2-5.0); Alkaline Phosphatase 81 U/L (45-117); Anion Gap 4 (5-15); BUN 17 mg/dL (7-18); BUN/Creat Ratio 17.6 RATIO (10-20); Calcium,Total 8.9 mg/dL (8.5-10.1); Chloride 111 mmol/L (98-107); Cholesterol 99 mg/dL (200); Creatinine, Serum 0.96 mg/dL (0.55-1.02); EST Glomerular Filtration Rate 62 mL/min (>60); Est Glom Filt Rate - Afr Amer 76 mL/min (>60); Globulin 3.2 g/dL (2.2-4.2); Glucose 161 mg/dL (74-106); High Density Lipoprotein 53 mg/dL; Potassium 3.8 mmol/L (3.5-5.1); Sodium Level 141 mmol/L (136-145); Triglycerides 74 mg/dL; Very Low Density Lipoprotein 15 mg/dL (5-40)
[2023-05-02 13:06] LABS: Vitamin D,25 Hydroxy 34.6 ng/mL
== END | disposition home or self-care (01) ==
LOC: MFPLAB 10:23
PROVIDERS: PCP Family Medicine; Visit Provider Family Medicine
DX: E11.69 Type 2 diabetes mellitus with other specified complication (principal); E55.9 Vitamin D deficiency, unspecified
CPT/HCPCS: 36415; 80053; 80061; 82306; 85025

== ENCOUNTER → 2023-08-23 | Outpatient (CLI) | payer OTHER, SELFPAY ==
--- OUTSIDE RECORDS SUMMARY | 2023-08-23 15:18 | XMS RPT_ITS | CCD ---
Demographics Address [address] [place] [address] Preferred Language Unknown Marital Status Advent Affiliation Unknown Race White Ethnic Group Unknown Author Name Unknown Address [address] [place] [address] Organization [facility] Results Test Name Value Interpretation Reference Range Facil ity Encounters Encounter Date Encounter Type Care Provider Facility Start: 10-29-2018 End: 10-31-2018 Patient encounter procedure [facility] Start: 03-28-2018 End: 03-28-2018 Patient encounter procedure [facility] Summary Purpose Family History No Family History Records Found Advance Directives No Advanced Directives Records Found Additional Source Comments INFORMATION SOURCE (unrecogn ized section and content) FOR RECORDS PERTAINING TO PATIENTS WHO ARE OR HAVE BEEN ENROLLED IN A CHEMICAL DEPENDENCY/SUBSTANCEABUSE PROGRAM, SOME INFORMATION MAY BE OMITTED. This clinical summary was aggregated from multiple sources. Caution should be exercised in using it in the provision of clinical care. This summary normalizes information from multiple sources, and as a consequence, information in this document may materially change the coding, format and clinical context of patient data. In addition, data may be omitted in some cases. CLINICAL DECISIONS SHOULD BE BASED ON THE PRIMARY CLINICAL RECORDS. [facility]. provides no warranty or guarantee of the accuracy or completeness of information in this document.
[2023-08-23 17:47] LABS: Absolute Lymphocyte Count 2.77 X10^3/uL (0.83-4.51); Absolute Neutrophil Count 4.4 X10^3/uL (2.0-7.7); Basophil# 0.07 X10^3/uL; Basophil% 0.9 % (0-1); Eosinophil# 0.31 X10^3/uL; Eosinophils% 3.8 % (0-5); Hemoglobin 13.8 g/dL (12.0-15.0); Lymphocyte # 2.77 X10^3/ul (0.83-4.51); Lymphocyte % 34.2 % (19-41); Mean Corp Hgb Conc 31.4 g/dL (32-36); Mean Corpuscular Hgb 28.3 pg (27.0-32.0); Mean Corpuscular Volume 90.2 fL (81-99); Mean Platelet Vol. 10.4 fl (6.2-12.0); Monocyte# 0.52 X10^3/uL; Monocyte% 6.4 % (0-10); NRBC Flagged by Analyzer 0 % (0-5); Neutrophil # 4.41 X10^3/uL (2.7-7.7); Neutrophil % 54.5 % (47-70); Platelet Count 391 K/mm3 (150-450); RBC Distribution Width CV 13.7 % (11.6-14.6); RBC Distribution Width SD 45.5 fl (35.1-43.9); Red Blood Count 4.88 M/mm3 (4.2-5.4); White Blood Count 8.1 K/mm3 (4.4-11.0)
[2023-08-23 18:15] LABS: Microalbumin,Random Urine 12.1 mg/L (NO RANGE EST.); Microalbumin:Creatinine Ratio 13.2 mg/g CRE (<30 mg/g CRE)
[2023-08-23 18:17] LABS: ALB/GLOB Ratio 1.4 RATIO (0.9-2.4); AST(SGOT) 39 U/L (15-37); Alanine Aminotransfer ALT/SGPT 85 U/L (13-56); Albumin, Serum 3.8 g/dL (3.2-5.0); Alkaline Phosphatase 79 U/L (45-117); Anion Gap 3 (5-15); BUN 10 mg/dL (7-18); BUN/Creat Ratio 15.5 RATIO (10-20); Calcium,Total 9.1 mg/dL (8.5-10.1); Chloride 109 mmol/L (98-107); Cholesterol 238 mg/dL (200); Creatinine, Serum 0.65 mg/dL (0.55-1.02); EST Glomerular Filtration Rate 99 mL/min (>60); Est Glom Filt Rate - Afr Amer 120 mL/min (>60); Globulin 2.8 g/dL (2.2-4.2); Glucose 104 mg/dL (74-106); High Density Lipoprotein 69 mg/dL; Potassium 3.9 mmol/L (3.5-5.1); Protein, Total 6.6 g/dL (6.4-8.2); Sodium Level 140 mmol/L (136-145); Triglycerides 106 mg/dL; Very Low Density Lipoprotein 21 mg/dL (5-40); Vitamin D,25 Hydroxy 22.1 ng/mL
== END | disposition home or self-care (01) ==
LOC: MFPLAB 14:39
PROVIDERS: PCP Family Medicine; Visit Provider Family Medicine
DX: E11.69 Type 2 diabetes mellitus with other specified complication (principal); E11.21 Type 2 diabetes mellitus with diabetic nephropathy; E55.9 Vitamin D deficiency, unspecified
CPT/HCPCS: 36415; 80053; 80061; 82043; 82306; 82570; 85025

== ENCOUNTER → 2023-11-02 | Outpatient (CLI) | payer OTHER, SELFPAY | END | disposition home or self-care (01) | LOC: CVS 06:54 | PROVIDERS: PCP Family Medicine; Referring Provider Family Medicine; Visit Provider Family Medicine | DX: R06.09 Other forms of dyspnea (principal); R42 Dizziness and giddiness | CPT/HCPCS: 78452; 93017; A9500; A4216; J2785 ==

== ENCOUNTER → 2023-11-07 | Outpatient (CLI) | payer MEDICAID, SELFPAY ==
[2023-11-07 17:49] LABS: Absolute Lymphocyte Count 2.65 X10^3/uL (0.83-4.51); Absolute Neutrophil Count 6.9 X10^3/uL (2.0-7.7); Basophil# 0.06 X10^3/uL; Basophil% 0.5 % (0-1); Eosinophil# 0.29 X10^3/uL; Eosinophils% 2.6 % (0-5); Hematocrit 45.7 % (37-47); Hemoglobin 13.9 g/dL (12.0-15.0); Lymphocyte # 2.65 X10^3/ul (0.83-4.51); Lymphocyte % 24.1 % (19-41); Mean Corp Hgb Conc 30.4 g/dL (32-36); Mean Corpuscular Volume 92.1 fL (81-99); Mean Platelet Vol. 10.3 fl (6.2-12.0); Monocyte# 1.03 X10^3/uL; Monocyte% 9.4 % (0-10); NRBC Flagged by Analyzer 0 % (0-5); Neutrophil # 6.93 X10^3/uL (2.7-7.7); Neutrophil % 63.1 % (47-70); Platelet Count 331 K/mm3 (150-450); RBC Distribution Width CV 13.3 % (11.6-14.6); RBC Distribution Width SD 45.3 fl (35.1-43.9); Red Blood Count 4.96 M/mm3 (4.2-5.4)
[2023-11-07 17:57] LABS: Erythrocyte Sedimentation Rate 8 mm/hr (0-30)
[2023-11-07 18:18] LABS: ALB/GLOB Ratio 1.1 RATIO (0.9-2.4); AST(SGOT) 24 U/L (15-37); Alanine Aminotransfer ALT/SGPT 53 U/L (13-56); Albumin, Serum 3.8 g/dL (3.2-5.0); Alkaline Phosphatase 78 U/L (45-117); Anion Gap 6 (5-15); BUN 14 mg/dL (7-18); BUN/Creat Ratio 15.4 RATIO (10-20); Calcium,Total 9.2 mg/dL (8.5-10.1); Chloride 109 mmol/L (98-107); Creatinine, Serum 0.91 mg/dL (0.55-1.02); EST Glomerular Filtration Rate 67 mL/min (>60); Est Glom Filt Rate - Afr Amer 81 mL/min (>60); Globulin 3.4 g/dL (2.2-4.2); Glucose 197 mg/dL (74-106); Potassium 3.7 mmol/L (3.5-5.1); Protein, Total 7.2 g/dL (6.4-8.2); Sodium Level 140 mmol/L (136-145)
== END | disposition home or self-care (01) ==
LOC: MFPLAB 14:12
PROVIDERS: PCP Family Medicine; Visit Provider Family Medicine
DX: R51.9 Headache, unspecified (principal)
CPT/HCPCS: 36415; 80053; 85025; 85652

== ENCOUNTER → 2024-02-08 | Outpatient (CLI) | payer OTHER, SELFPAY ==
[2024-02-08 17:35] LABS: Absolute Lymphocyte Count 3.53 X10^3/uL (0.83-4.51); Absolute Neutrophil Count 6.7 X10^3/uL (2.0-7.7); Basophil# 0.09 X10^3/uL; Basophil% 0.8 % (0-1); Eosinophil# 0.42 X10^3/uL; Eosinophils% 3.7 % (0-5); Hematocrit 45.6 % (37-47); Hemoglobin 14.5 g/dL (12.0-15.0); Lymphocyte # 3.53 X10^3/ul (0.83-4.51); Lymphocyte % 30.8 % (19-41); Mean Corp Hgb Conc 31.8 g/dL (32-36); Mean Corpuscular Hgb 28.5 pg (27.0-32.0); Mean Corpuscular Volume 89.6 fL (81-99); Mean Platelet Vol. 10.7 fl (6.2-12.0); Monocyte# 0.72 X10^3/uL; Monocyte% 6.3 % (0-10); NRBC Flagged by Analyzer 0 % (0-5); Neutrophil # 6.66 X10^3/uL (2.7-7.7); Neutrophil % 58.1 % (47-70); Platelet Count 356 K/mm3 (150-450); RBC Distribution Width CV 12.5 % (11.6-14.6); RBC Distribution Width SD 41.1 fl (35.1-43.9); Red Blood Count 5.09 M/mm3 (4.2-5.4); White Blood Count 11.5 K/mm3 (4.4-11.0)
[2024-02-08 17:52] LABS: Vitamin D,25 Hydroxy 97.5 ng/mL
[2024-02-08 18:06] LABS: Microalbumin:Creatinine Ratio 222.9 mg/g CRE (<30 mg/g CRE)
[2024-02-08 18:19] LABS: ALB/GLOB Ratio 1.2 RATIO (0.9-2.4); AST(SGOT) 26 U/L (15-37); Alanine Aminotransfer ALT/SGPT 70 U/L (13-56); Alkaline Phosphatase 85 U/L (45-117); Anion Gap 8 (5-15); BUN 16 mg/dL (7-18); BUN/Creat Ratio 18.5 RATIO (10-20); Calcium,Total 9.6 mg/dL (8.5-10.1); Chloride 109 mmol/L (98-107); Cholesterol 115 mg/dL (200); Creatinine, Serum 0.87 mg/dL (0.55-1.02); EST Glomerular Filtration Rate 70 mL/min (>60); Est Glom Filt Rate - Afr Amer 85 mL/min (>60); Globulin 3.3 g/dL (2.2-4.2); Glucose 152 mg/dL (74-106); High Density Lipoprotein 60 mg/dL; Potassium 4.2 mmol/L (3.5-5.1); Protein, Total 7.3 g/dL (6.4-8.2); Sodium Level 139 mmol/L (136-145); T4 Free Direct 1.01 ng/dL (0.76-1.46); Thyroid Stim Hormone (TSH) 1.31 uIU/mL (0.358-3.74); Triglycerides 88 mg/dL; Very Low Density Lipoprotein 18 mg/dL (5-40)
== END | disposition home or self-care (01) ==
LOC: MFPLAB 14:53
PROVIDERS: PCP Family Medicine; Visit Provider Family Medicine
DX: R53.83 Other fatigue (principal); E11.21 Type 2 diabetes mellitus with diabetic nephropathy; E11.69 Type 2 diabetes mellitus with other specified complication
CPT/HCPCS: 36415; 80053; 80061; 82043; 82306; 82570; 84439; 84443; 85025

== ENCOUNTER 2024-10-23 09:26 | Day surgery (SDC) | payer OTHER, SELFPAY ==
--- NOTE | 2024-10-21 09:05 | PAT.ANE_ITS ---
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 When Was Last Pacemaker Check QUESTION #4 FULL TEXT: You/Your Family Experience fever (hyperthermia) with Anesthesia Last Oral Intake Last Oral intake: Last Oral Intake NPO since Meds taken in AM with sips of water? Meds patient instructed to take am of surgery PONV PONV - data warehouse specialist: PONV - data warehouse specialist Female Yes 10/20/24 12:02 HX of Motion Sickness No 10/20/24 12:02 HX of N/V After Surgery No 10/20/24 12:02 Non-Smoker Yes 10/20/24 12:02 Duration of Surgery greater No 10/20/24 12:02 than 60 minutes Number of Risk Factors 2 10/20/24 12:02 PONV Score Moderate Risk 10/20/24 12:02 Height & Weight Height & Weight: Anesthesia: Height & Weight Height 5 ft 4 in 07/14/24 13:38 Respiratory Assessment Respiratory Assessment - data warehouse specialist: Respiratory Tract Infection Hx - data warehouse specialist Hx Respiratory Tract Infection No 10/20/24 12:02 STOP Sleep Apnea STOP Sleep Apnea - data warehouse specialist: STOP Sleep Apnea - data warehouse specialist Hx Hypertension No 10/20/24 12:02 Hx Sleep Apnea No 10/20/24 12:02 CPAP BIPAP Do you snore loudly (louder No 10/20/24 12:02 than talking or can be heard Do you often feel tired/ No 10/20/24 12:02 fatigued/ sleepy during daytime? Has anyone observed you stop No 10/20/24 12:02 breathing during sleep? STOP Results Negative 10/20/24 12:02 QUESTION #5 FULL TEXT : Do you snore loudly (louder than talking or can be heard through closed doors)? 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 Specify any problems Hx of Preganancy in last 3 No 10/20/24 12:02 Months Nurse Filling Out Transfusion VCHRISTIN 10/20/24 12:02 & Questions: Date: 10/20/24 10/20/24 12:02 Time: 12:04 10/20/24 12:02 Patient unable to answer at this time (ie. confused, unrespo /Reproduction History /Reproductive History - data warehouse specialist: /Reproductive Hx- data warehouse specialist Hx Now Gestational Age (in weeks): EDC: Hx Hx Para Hx Section SAB PFSH Medical History Injury of head and neck Dietary restriction Non-smoker Sleep apnea Normal Holter exam History of echocardiogram History of stress test Cardiology follow-up encounter Obesity Abnormal cortisol level Microalbuminuric diabetic nephropathy Elevated liver function tests Migraine Gallbladder polyp Diabetes Hyperlipidemia Home Medications ?Medication ?Instructions ?Recorded ?Last Taken ?Type cetirizine 10 mg tablet 10 mg PO DAILY PRN allergy s ymptoms 04/19/22 Unknown History rimegepant 75 mg disintegrating 75 mg PO DAILY PRN efrain sean 04/26/23 Unknown Rx tablet (Nurtec ODT) headache #16 tabs Trulicity 0.75 mg/0.5 mL 0.75 mg (0.5 mL) subcut QWEE K #2 mL 03/25/24 10/11/24 Rx subcutaneous pen injector (dulaglutide) blood-glucose sensor (FreeStyle #2 ea 03/25/24 Unknown Rx Hector 3 Plus Sensor device) empagliflozin 25 mg tablet 25 mg PO DAILY #90 tabs 10/18/24 Rx (Jardiance) glimepiride 2 mg tablet 2 mg PO DAILY #90 tabs 03/2510/21/24 Rx metformin 1,000 mg tablet 1,000 mg PO BID #180 tabs 10/21/24 Rx rosuvastatin 40 mg tablet 40 mg PO MOTUTHFRSA 05/27/24 10/21/24 History Allergy/AdvReac Type Severity Reaction Status Date / Time adhesive tape Allergy Rash Verified 10/23/24 09:52 hydrocodone (From Vicodin) AdvReac Severe Nausea Verified 10/23/24 09:52 oxycodone (From Percocet) AdvReac Intermediate Nausea Verified 10/23/24 09:52 Family History Father Diabetes Grandmother Colon cancer Hypertension Sister Cancer thyroid Ovarian cancer Thyroid disorder Mother Alzheimer disease Ovarian cancer Surgical History History of laparoscopic cholecystectomy History of lumpectomy of right breast History of colonoscopy (~2015) History of esophagogastroduodenoscopy (EGD) History of bladder repair surgery History of hysterectomy Social History household members: none and other details: current occupational status: disabled Smoking Status: Never smoker second hand exposure: No alcohol intake: current alcohol intake frequency: holidays/special occasions only details: RARELY substance use type: does not use caffeine: Yes Type: carbonated beverages Number of servings: 3 what type of physical activity do you participate in: none tawny/gnosticist: None seatbelt use: always Audit: Pertinent Findings Pertinent Findings EKG Perinent findings: April 24, 2022. Sinus rhythm. Negative precordial T waves. Within normal limits Stress test pertinent findings: November 02, 2023. Ejection fraction of 58%. No ischemic changes noted. No infarct. Echo (EF%) pertinent findings: May 04, 2022. Ejection fraction 60%. No aortic stenosis. Consult pertinent findings: June 06, 2022. Dr. Solis. 1. Chest [id number] exercise stress Myoview. Coronary CT angio shows only minimal atherosclerotic disease. 2. Coronary artery disease-minimal disease seen on CT angio. Start 81 mg of aspirin. Continue rosuvastatin. Modify risk factors. Additional pertinent findings: Holter monitor. May 03, 2022. Average heart rate was normal sinus rhythm. Single PVC noted. Rare PACs including 1 triplet. No atrial fibrillation noted. Patient's diary noted chest pain and shortness of breath which she did not correlate with the scan. Recommendation Anesthesia Recommendation Anesthesia recommendation: OPTIMIZED for anesthesia
[2024-10-23 09:53] VITALS: BP 140/77; PULSE 80; RESP 12; TEMP 36.2; O2SAT 96; BMI 29.2
[2024-10-23] MEDS: Insulin Lispro 100 UNIT/ML INSULN.PEN 6 UNIT SC (10:10)
--- NOTE | 2024-10-23 10:15 | PCM.PRE.AN2 ---
ASA Classification* ASA Classification ASA Classification: 3 Assessment & Plan Anesthesia* Anesthesia Assessment Anesthesia Assessment: Discussed sedation and/or anesthesia options, risks, benefits, and alternatives with patient/parents/legal guardian/POA. Questions invited. The patient/parents/legal guardian/POA seems to understand and agrees to proceed with anesthesia plan. Reviewed the physical assessment, medical history, allergy history and patient home medications list prior to surgery/procedure/anesthetic and documented any changes. Performed airway and anesthesia risk assessments. Anesthesia Type Anesthesia Type: MAC (Patient sugar this morning is 458. Will give her insulin and recheck the fingerstick. This needs to be under better control prior to anesthesia for the procedure.) History Source History Obtained from:: Patient and Chart Anesthesia Focused Assessment* Temperature: 97.2 F Pulse Rate: 80 Blood Pressure: 140/77 Respiratory Rate: 12 Pulse Ox: 96 Oxygen Delivery Method: Room Air Airway Assessment Mouth opens: >3 cm Mallampati Score: III Teeth Condition: Intact Neck Range of motion (ROM): Limited ROM (Slight decrease in extension) Focused Labs Anesthesia Preop lab: CBC WBC 11.5 K/mm3 (4.4-11.0) H 02/08/24 14:54 02/08/24 RBC 5.09 M/mm3 (4.2-5.4) 02/08/24 14:54 02/08/24 Hgb 14.5 g/dL (12.0-15.0) 02/08/24 14:54 02/08/24 Hct 45.6 % (37-47) 02/08/24 14:54 02/08/24 Plt Count 356 K/mm3 (150-450) 02/08/24 14:54 02/08/24 CHEMISTRY Potassium 4.2 mmol/L (3.5-5.1) 02/08/24 14:54 02/08/24 Sodium 139 mmol/L (136-145) 02/08/24 14:54 02/08/24 Magnesium 2.2 mg/dL (1.6-2.6) 02/18/20 12:39 02/18/20 BUN 16 mg/dL (7-18) 02/08/24 14:54 02/08/24 Creatinine 0.87 mg/dL (0.55-1.02) 02/08/24 14:54 02/08/24 Glucose 152 mg/dL (74-106) H 02/08/24 14:54 02/08/24 POC Glucose 140 mg/dL (70-110) H 08/16/18 08:16 08/16/18 TSH 1.31 uIU/mL (0.358-3.74) 02/08/24 14:54 02/08/24 COAG PT 12.0 SECONDS (11.7-14.9) 08/14/18 10:03 08/14/18 Pre-Assessment Diagnosis/Proposed Procedure Planned Operative Procedure(s): COLONOSCOPY-OA Anesthesia History Anesthesia History - objective c developer: Anesthesia History - objective c developer Hx Hospitalization No 10/20/24 12:02 Any Problems With Anesthesia Yes: EYES WERE SCRATCHED PER 10/20/24 12:02 PT., HARD TIME WAKING Cholinesterase deficiency No 10/20/24 12:02 You/Your Family Experience No 10/20/24 12:02 fever (hyperthermia) with Relationship Recent Exposure to Contagious No 10/23/24 09:53 Disease Does patient have nerve No 10/20/24 12:02 stimulator Patient instructed to have device shut off --Does patient have Pacemaker No 10/23/24 09:53 or ICD? When Was Last Pacemaker Check QUESTION #4 FULL TEXT: You/Your Family Experience fever (hyperthermia) with Anesthesia Last Oral Intake Last Oral intake: Last Oral Intake NPO since 07:30 10/23/24 09:53 Meds taken in AM with sips of water? Meds patient instructed to take am of surgery Any additional information?: Yes NPO since: 07:30 (Patient had lemonade with her MiraLAX at 7:30 AM.) Meds taken in AM with sips of water?: No PONV PONV - objective c developer: PONV - objective c developer Female Yes 10/20/24 12:02 HX of Motion Sickness No 10/20/24 12:02 HX of N/V After Surgery No 10/20/24 12:02 Non-Smoker Yes 10/20/24 12:02 Duration of Surgery greater No 10/20/24 12:02 than 60 minutes Number of Risk Factors 2 10/20/24 12:02 PONV Score Moderate Risk 10/20/24 12:02 Height & Weight Height & Weight: Anesthesia: Height & Weight Height 5 ft 4 in 10/23/24 09:53 Weight: 77.4 kg 10/23/24 09:53 Body Mass Index (BMI) 29.2 10/23/24 09:53 Respiratory Assessment Respiratory Assessment - objective c developer: Respiratory Tract Infection Hx - objective c developer Hx Respiratory Tract Infection No 10/20/24 12:02 STOP Sleep Apnea STOP Sleep Apnea - objective c developer: STOP Sleep Apnea - objective c developer Hx Hypertension No 10/20/24 12:02 Hx Sleep Apnea No 10/20/24 12:02 CPAP BIPAP Do you snore loudly (louder No 10/20/24 12:02 than talking or can be heard Do you often feel tired/ No 10/20/24 12:02 fatigued/ sleepy during daytime? Has anyone observed you stop No 10/20/24 12:02 breathing during sleep? STOP Results Negative 10/20/24 12:02 QUESTION #5 FULL TEXT : Do you snore loudly (louder than talking or can be heard through closed doors)? 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 Specify any problems Hx of Preganancy in last 3 No 10/20/24 12:02 Months Nurse Filling Out Transfusion VCHRISTIN 10/20/24 12:02 & Questions: Date: 10/20/24 10/20/24 12:02 Time: 12:04 10/20/24 12:02 Patient unable to answer at this time (ie. confused, unrespo /Reproduction History /Reproductive History - objective c developer: /Reproductive Hx- objective c developer Hx Now Gestational Age (in weeks): EDC: Hx Hx Para Hx Section SAB PFSH Medical History Injury of head and neck Dietary restriction Non-smoker Sleep apnea Normal Holter exam History of echocardiogram History of stress test Cardiology follow-up encounter Obesity Abnormal cortisol level Microalbuminuric diabetic nephropathy Elevated liver function tests Migraine Gallbladder polyp Diabetes Hyperlipidemia Home Medications ?Medication ?Instructions ?Recorded ?Last Taken ?Type cetirizine 10 mg tablet 10 mg PO DAILY PRN allergy symptoms 04/19/22 Unknown History rimegepant 75 mg disintegrating 75 mg PO DAILY PRN migraine 04/26/23 Unknown Rx tablet (Nurtec ODT) headache #16 tabs Trulicity 0.75 mg/0.5 mL 0.75 mg (0.5 mL) subcut QWEEK #2 mL 03/25/24 10/11/24 Rx subcutaneous pen injector (dulaglutide) blood-glucose sensor (FreeStyle #2 ea 03/25/24 Unknown Rx Hector 3 Plus Sensor device) empagliflozin 25 mg tablet 25 mg PO DAILY #90 tabs 03/25/24 10/18/24 Rx (Jardiance) glimepiride 2 mg tablet 2 mg PO DAILY #90 tabs 03/25/24 10/21/24 Rx metformin 1,000 mg tablet 1,000 mg PO BID #180 tabs 03/25/24 10/21/24 Rx rosuvastatin 40 mg tablet 40 mg PO MOTUTHFRSA 05/27/24 10/21/24 History Allergy/AdvReac Type Severity Reaction Status Date / Time adhesive tape Allergy Rash Verified 10/23/24 09:52 hydrocodone (From Vicodin) AdvReac Severe Nausea Verified 10/23/24 09:52 oxycodone (From Percocet) AdvReac Intermediate Nausea Verified 10/23/24 09:52 Family History Father Diabetes Grandmother Colon cancer Hypertension Sister Cancer thyroid Ovarian cancer Thyroid disorder Mother Alzheimer disease Ovarian cancer Surgical History History of laparoscopic cholecystectomy History of lumpectomy of right breast History of colonoscopy (~2015) History of esophagogastroduodenoscopy (EGD) History of bladder repair surgery History of hysterectomy Social History household members: none and other details: current occupational status: disabled Smoking Status: Never smoker second hand exposure: No alcohol intake: current alcohol intake frequency: holidays/special occasions only details: RARELY substance use type: does not use caffeine: Yes Type: carbonated beverages Number of servings: 3 what type of physical activity do you participate in: none tawny/pentecostalism: None seatbelt use: always Review of Systems (Anesthesia) ROS Narrative System reviewed and no additional complaints, except as documented.
[2024-10-23 10:25] VITALS: BP 140/77; PULSE 80; RESP 12; TEMP 36.2; O2SAT 96
--- NOTE | 2024-10-23 10:36 | H&P.OPEN ---
HPI - General HPI Narrative LINDA GALE, is a 63 F who presents for screening colonoscopy. Her last colonoscopy was about 10 years ago. She denies abdominal pain or blood in the stool. She does have family history of colon cancer in her grandmother. [facility] Medical History Injury of head and neck Dietary restriction Non-smoker Sleep apnea Normal Holter exam History of echocardiogram History of stress test Cardiology follow-up encounter Obesity Abnormal cortisol level Microalbuminuric diabetic nephropathy Elevated liver function tests Migraine Gallbladder polyp Diabetes Hyperlipidemia Home Medications ?Medication ?Instructions ?Recorded ?Last Taken ?Type cetirizine 10 mg tablet 10 mg PO DAILY PRN allergy symptoms 04/19/22 Unknown History rimegepant 75 mg disintegrating 75 mg PO DAILY PRN migraine 04/26/23 Unknown Rx tablet (Nurtec ODT) headache #16 tabs Trulicity 0.75 mg/0.5 mL 0.75 mg (0.5 mL) subcut QWEEK #2 mL 03/25/24 10/11/24 Rx subcutaneous pen injector (dulaglutide) blood-glucose sensor (FreeStyle #2 ea 03/25/24 Unknown Rx Hector 3 Plus Sensor device) empagliflozin 25 mg tablet 25 mg PO DAILY #90 tabs 03/25/24 10/18/24 Rx (Jardiance) glimepiride 2 mg tablet 2 mg PO DAILY #90 tabs 03/25/24 10/21/24 Rx metformin 1,000 mg tablet 1,000 mg PO BID #180 tabs 03/25/24 10/21/24 Rx rosuvastatin 40 mg tablet 40 mg PO MOTUTHFRSA 05/27/24 10/21/24 History Allergy/AdvReac Type Severity Reaction Status Date / Time adhesive tape Allergy Rash Verified 10/23/24 09:52 hydrocodone (From Vicodin) AdvReac Severe Nausea Verified 10/23/24 09:52 oxycodone (From Percocet) AdvReac Intermediate Nausea Verified 10/23/24 09:52 Family History Father Diabetes Grandmother Colon cancer Hypertension Sister Cancer thyroid Ovarian cancer Thyroid disorder Mother Alzheimer disease Ovarian cancer Surgical History History of laparoscopic cholecystectomy History of lumpectomy of right breast History of colonoscopy (~2016) History of esophagogastroduodenoscopy (EGD) History of bladder repair surgery History of hysterectomy Social History household members: none and other details: current occupational status: disabled Smoking Status: Never smoker second hand exposure: No alcohol intake: current alcohol intake frequency: holidays/special occasions only details: RARELY substance use type: does not use caffeine: Yes Type: carbonated beverages Number of servings: 3 what type of physical activity do you participate in: none tawny/restorationist: None seatbelt use: always Past Medical/Surgical History Planned Operation Planned Operative Procedure(s): COLONOSCOPY-OA S.O.S: No Previous Hospitalizations/Surgeries HX Hospitalizations: No HX of Surgeries: BLADDER SLING/RIGHT LUMPECTOMY/HYSTERECTOMY 2010 Any Problems With Anesthesia: Yes (EYES WERE SCRATCHED PER PT., HARD TIME WAKING) You/Your Family Experience Fever (Hyperthermia) With Anes: No Cholinesterase deficiency: No Cardiovascular Hx Chest Pain within Last 2 months: No Hx of Irregular Heartbeat and/or Afib: No Hx Heart Attack: No Hx Congestive Heart Failure: No Hx Rheumatic Fever: No Hx Hypertension: No Hx Internal Defibrillator: No Hx Pacemaker: No Hx Cardiac Catheterization: No Hx Cardiac Surgery/Stents/Etc.: No Hx Stress Test: No Hx Pain in Legs when Walking/Leg Cramps: Yes (OCC CRAMPS) Respiratory Chronic Cough: No HX of Shortness of Breath: No Hoarseness: No Hx Chronic Obstructive Pulmonary Disease (COPD): No Hx Asthma: No Hx Emphysema: No Hx Sleep Apnea: No Hx Respiratory Tract Infection/Cold (presently): No Do You Snore Loudly (louder than talking or can be heard): No Do You Often Feel Tired/ Fatigued/ Sleepy Dring Daytime?: No Has Anyone Observed You Stop Breathing During Sleep?: No Result (for STOP score): Negative Hx Smoking: No Smoking Status: Never smoker Gastrointestinal Hx Gastrointestinal Disorders: No Hx Gastrointestinal Bleed: No Hx Ulcer: No Hx Hiatal Hernia: No Difficulty Chewing/Swallowing: No Special diet followed at home: Yes (ADA) Hx Unplanned Weight Loss of 20#: No HX Unplanned Weight Gain of 20#: No Neurological Hx Seizures: No HX Syncope/Blackout Spells/Unconsciousness: No Hx Transient Ischemic Attacks (TIA): No Hx Multiple Sclerosis: No Hx Parkinson's Disease: No Hx Head/Neck Injury: No Hx Headaches: Yes (OCC MIRGRAINES) Hx Back Injury/Pain: No Recent Onset of Speech Difficulty: No Restless Legs: No Does patient have nerve stimulator: No Blood Disorder Hx Leukemia: No Bleeding Tendencies: Yes (BRUISES EASILY) Hx Deep Vein Thrombosis: No Hx High Cholesterol: Yes (ON MED) Blood Transmitted Disease: No Hx Hepatitis: No Hx Cirrhosis: No Hx Anemia: No Hx Blood Disorders: No Reproduction Is Patient Lactating: No Hx Hysterectomy: Yes Hx Tubal Ligation: No Are You Post Menopause: Yes Genitourinary Hx Renal Disease: No Musculoskeletal Hx Arthritis: No Hx Rheumatoid Arthritis: No Hx Gout: No Recent Onset of an Orthopedic Problem: No Endocrine Hx Diabetes: Yes Insulin: Yes Thyroid Disease: No Hx Steroid Therapy: No Psycho/Social Hx Substance Use: No Hx Alcohol Use: No Hx Anxiety: No Hx Depression: No Mental Illness: No Hx Dementia: No Miscellaneous Hx Cancer: No Recent Exposure to Contagious Disease: No Hx of C-Diff: No Any Loose Teeth: No Allergies adhesive tape Allergy (Verified 10/23/24 09:52) Rash hydrocodone (From Vicodin) Adverse Reaction (Severe, Verified 10/23/24 09:52) Nausea oxycodone (From Percocet) Adverse Reaction (Intermediate, Verified 10/23/24 09:52) Nausea Discharge Is Pt Admitted From a [facility], or a Penitentiary: No After D/C, Where Do you Plan to Go: Return Home From the PAT History Number of Risk Factors: 2 Vital Signs Vital Signs Vital Signs: 10/23/24 09:53 10/23/24 09:53 10/23/24 10:25 Temperature 97.2 F L 97.2 F L Temperature Source Temporal Pulse Rate 80 80 Respiratory Rate 12 12 Respiratory Pattern Normal Blood Pressure 140/77 H 140/77 H Blood Pressure Mean 98 Blood Pressure Source Monitor Blood Pressure Position Semi-Fowlers Blood Pressure Location Left Arm Pulse Ox 96 96 Oxygen Delivery Method Room Air Room Air Weight Weight: 170 lb 10.205 oz Body Mass Index (BMI) 29.2 Physical Exam Const alert and oriented x3 HEENT normocephalic Eyes PERRL Resp normal respiratory effort and normal air movement Cardio regular rate and regular rhythm GI soft to palpation, non-tender and non-distended Extremity normal to inspection Assessment & Plan Assessment/Plan (1) Encounter for screening for malignant neoplasm of colon: PLAN: I explained endoscopy in detail to the patient. I explained the risks including but not limited to stroke or heart attack with anesthesia, perforation of the GI tract, bleeding, infection. I explained that any of these could necessitate further emergency surgery. The patient understands and all questions were answered sufficiently. The patient wishes to proceed with procedure. Aftab Dewitt MD Pager: [facility] [address] [place] [address] [address] [place] [address] Office: Surgery Risks - Colonoscopy Risks Include but are not Limited To: Risks include but are not limited to: Bleeding, perforation requiring further surgery, inability to complete colonoscopy requiring barium enema.
[2024-10-23 11:09] LABS: Bedside Glucose 424 mg/dL (74-106)
[2024-10-23 11:09] LABS: Bedside Glucose 458 mg/dL (74-106)
--- NOTE | 2024-10-23 11:31 | NURSING ---
PT BLOOD GLUCOSE REMAINS HIGH AFTER INSULIN ADMINISTRATION, DR. RODRIGEZ AND DR. CUEVAS CANCELLED CASE AND SENT PT TO ER FOR RULE OUT OF DKA. REPORT CALLED TO ER CHARGE NURSE LANDON BY THIS NURSE.
== END 2024-10-23 11:20 | disposition home or self-care (01) ==
LOC: EN 09:27 → AC 09:29
PROVIDERS: PCP Family Medicine; Referring Provider Family Medicine; Visit Provider Surgery
DX: E11.21 Type 2 diabetes mellitus with diabetic nephropathy (principal); Z53.29 Procedure and treatment not carried out because of patient's decision for other reasons; E78.5 Hyperlipidemia, unspecified; G43.909 Migraine, unspecified, not intractable, without status migrainosus; Z90.49 Acquired absence of other specified parts of digestive tract; Z79.85 Long-term (current) use of injectable non-insulin antidiabetic drugs; Z79.84 Long term (current) use of oral hypoglycemic drugs; Z79.899 Other long term (current) drug therapy
CPT/HCPCS: 82962; A4216

== ENCOUNTER 2024-10-23 11:26 | Emergency (ER) | payer OTHER, SELFPAY ==
[2024-10-23 11:26] VITALS: BP 170/101; PULSE 89; RESP 14; TEMP 36.8; O2SAT 98
[2024-10-23 11:57] LABS: Bedside Glucose 375 mg/dL (74-106)
[2024-10-23] MEDS: 0.9% Normal Saline (1000mL) 1,000 ML 1000 ML IV (12:04)
[2024-10-23 12:08] LABS: Absolute Lymphocyte Count 2.54 X10^3/uL (0.83-4.51); Absolute Neutrophil Count 3.9 X10^3/uL (2.0-7.7); Basophil# 0.07 X10^3/uL; Basophil% 0.9 % (0-1); Eosinophil# 0.34 X10^3/uL; Eosinophils% 4.6 % (0-5); Hematocrit 41.3 % (37-47); Hemoglobin 13.6 g/dL (12.0-15.0); Lymphocyte # 2.54 X10^3/ul (0.83-4.51); Mean Corp Hgb Conc 32.9 g/dL (32-36); Mean Corpuscular Hgb 28.9 pg (27.0-32.0); Mean Corpuscular Volume 87.9 fL (81-99); Mean Platelet Vol. 10.2 fl (6.2-12.0); Monocyte# 0.61 X10^3/uL; Monocyte% 8.2 % (0-10); NRBC Flagged by Analyzer 0 % (0-5); Neutrophil # 3.88 X10^3/uL (2.7-7.7); Platelet Count 298 K/mm3 (150-450); RBC Distribution Width CV 12.8 % (11.6-14.6); RBC Distribution Width SD 41.1 fl (35.1-43.9); White Blood Count 7.5 K/mm3 (4.4-11.0)
[2024-10-23 12:10] LABS: Blood Gas Specimen Type VEN; O2 Delivery Device Not entered; SITE Not entered; VBG BASE EXCESS 6 mmol/L (-1.0-3.5); VBG Bicarbonate 31 mmol/L (22-26); VBG PO2 37 mmHg (25-40); VBG SO2 68 % (50-70); VBG TCO2 32 mmol/L (23-33); VBG pCO2 52.4 mmHg (41-51); VBG pH 7.38 (7.32-7.42)
[2024-10-23 12:15] LABS: Mucous, Urine 0 SEEN /hpf (<or=2+); White Blood Cells 0 SEEN /hpf (0-5)
[2024-10-23 12:22] LABS: Color, Urine Yellow (Yellow); Glucose, Dipstick 1000 mg/dl (Normal); Ketone-Dipstick Negative (Negative); Leukocyte Esterase-Dipstick Negative /ul (Negative); Nitrite-Dipstick Positive (Negative); Occult Blood-Urine 10 /ul (Negative); Protein-Dipstick Negative (Negative); Urine Bilirubin Dipstick Negative (Negative); Urine Clarity Clear (Clear); Urine Urobilinogen Normal (Normal); Urine pH 6.5 (5.0 - 8.0)
[2024-10-23 12:39] LABS: Bacteria 2+ /hpf (None Seen); Squamous Epithelial Cells - UA 0-5 SEEN /hpf (5-10)
[2024-10-23 12:40] LABS: Red Blood Cells-Urine 0-5 SEEN /hpf (0-5)
[2024-10-23 12:49] LABS: Anion Gap 10 (5-15); BUN 11 mg/dL (4-19); BUN/Creat Ratio 14.3 RATIO (10-20); Calcium,Total 8.8 mg/dL (7.6-11.0); Carbon Dioxide 26.1 mmol/L (21.0-32.0); Chloride 99 mmol/L (98-108); Creatinine, Serum 0.75 mg/dL (0.70-1.20); EST Glomerular Filtration Rate 90 (>60); Glucose 420 mg/dL (70-99); Potassium 4.4 mmol/L (3.3-5.1); Sodium Level 135 mmol/L (133-145)
[2024-10-23 13:26] VITALS: BP 153/97; PULSE 74; RESP 18; O2SAT 99
[2024-10-23] MEDS: Insulin Lispro 100 UNIT/ML INSULN.PEN SC (13:35)
--- NOTE | 2024-10-23 14:17 | EX.ED.DYSGE1 ---
HPI History of Present Illness Chief Complaint: Hyperglycemia Narrative Narrative: Chief complaint and HPI: Hyperglycemia. 63-year-old female with history of diabetes presents for evaluation of hyperglycemia from preop. History taken by general surgeon who spoke with me about the patient as well as patient herself. Patient was scheduled for a routine colonoscopy today with general surgery. She was told to stop her Trulicity as well as glimepiride however was supposed to stay on her metformin. Patient thought that she was supposed to be off all of her diabetic medication therefore she stopped taking it for several days. She drank colon prep today with lemonade. In preop she had a glucose of 458. Patient was given insulin without improvement. Concern was for possible DKA and patient was sent to the emergency department. Patient denies any fever, chills, shortness of breath, chest pain abdominal pain, nausea, vomiting, diarrhea, dysuria. States she feels fine other than she was told her glucose was high. Review of systems: See HPI Medications: As listed on the chart Allergies: As listed on the chart PFSH: Per chart Vital signs: As listed on the chart. Reviewed. Physical exam: Gen: A&O x3, NAD Head: Normocephalic, atraumatic Eyes: No sclera icterus, conjunctiva clear ENT: Moist mucous membranes Neck: Trachea midline, No JVD CV: RRR, no murmurs, no peripheral edema Resp: Lungs CTA BL, no w/r/c GI: Abd soft, non-distended, non-tender, no r/r/g Musc: Full ROM, no deformity Skin: Warm, dry Neuro: Alert, oriented, grossly intact, sensation intact Psych: Cooperative, appropriate mood and affect [facility] Medical History Injury of head and neck Dietary restriction Non-smoker Sleep apnea Normal Holter exam History of echocardiogram History of stress test Cardiology follow-up encounter Obesity Abnormal cortisol level Microalbuminuric diabetic nephropathy Elevated liver function tests Migraine Gallbladder polyp Diabetes Hyperlipidemia Home Medications ?Medication ?Instructions ?Recorded ?Last Taken ?Type cetirizine 10 mg tablet 10 mg PO DAILY PRN allergy symptoms 04/19/22 Unknown History rimegepant 75 mg disintegrating 75 mg PO DAILY PRN migraine 04/26/23 Unknown Rx tablet (Nurtec ODT) headache #16 tabs Trulicity 0.75 mg/0.5 mL 0.75 mg (0.5 mL) subcut QWEEK #2 mL 03/25/24 10/11/24 Rx subcutaneous pen injector (dulaglutide) blood-glucose sensor (FreeStyle #2 ea 03/25/24 Unknown Rx Hector 3 Plus Sensor device) empagliflozin 25 mg tablet 25 mg PO DAILY #90 tabs 03/25/24 10/18/24 Rx (Jardiance) glimepiride 2 mg tablet 2 mg PO DAILY #90 tabs 03/25/24 10/21/24 Rx metformin 1,000 mg tablet 1,000 mg PO BID #180 tabs 03/25/24 10/21/24 Rx rosuvastatin 40 mg tablet 40 mg PO MOTUTHFRSA 05/27/24 10/21/24 History cephalexin 500 mg capsule 500 mg PO BID 5 days #10 caps 10/23/24 Unknown Rx Allergy/AdvReac Type Severity Reaction Status Date / Time adhesive tape Allergy Rash Verified 10/23/24 09:52 hydrocodone (From Vicodin) AdvReac Severe Nausea Verified 10/23/24 09:52 oxycodone (From Percocet) AdvReac Intermediate Nausea Verified 10/23/24 09:52 Family History Father Diabetes Grandmother Colon cancer Hypertension Sister Cancer thyroid Ovarian cancer Thyroid disorder Mother Alzheimer disease Ovarian cancer Surgical History History of laparoscopic cholecystectomy History of lumpectomy of right breast History of colonoscopy (~2015) History of esophagogastroduodenoscopy (EGD) History of bladder repair surgery History of hysterectomy Social History household members: none and other details: current occupational status: disabled Smoking Status: Never smoker second hand exposure: No alcohol intake: current alcohol intake frequency: holidays/special occasions only details: RARELY substance use type: does not use caffeine: Yes Type: carbonated beverages Number of servings: 3 what type of physical activity do you participate in: none tawny/restorationist: None seatbelt use: always EXAM Physical Exam Const Vital Signs: 10/23/24 11:26 10/23/24 11:26 10/23/24 13:26 Temperature 98.3 F Temperature Source Temporal Pulse Rate 89 74 Respiratory Rate 14 18 Respiratory Effort Normal Non-Labored Blood Pressure 170/101 H 153/97 H Blood Pressure Mean 124 115 Pulse Ox 98 99 Oxygen Delivery Method Room Air Room Air 10/23/24 14:41 10/23/24 14:51 Temperature 97.9 F 97.9 F Temperature Source Pulse Rate 69 69 Respiratory Rate 18 18 Respiratory Effort Blood Pressure 150/92 H 150/92 H Blood Pressure Mean 111 111 Pulse Ox 98 98 Oxygen Delivery Method MDM MDM MDM Narrative Medical decision making narrative: 63-year-old female with history of diabetes presents for evaluation of hyperglycemia from preop. Patient stopped taking her medicine for colon prep. She was found to be hyperglycemic and preop in the 400s and concern was for possible DKA so she was sent to the emergency department. Patient is currently asymptomatic from her hyperglycemia. Differential diagnosis includes but is not limited to hyperglycemia secondary to being off medication, DKA, electrolyte abnormality. Hbtnn-ne-dglj glucose on arrival in the ED is 375. NS bolus ordered. DKA workup ordered. CBC without leukocytosis or anemia. VBG without acidosis. BMP without anion gap, electrolyte abnormality, JACKELIN. Patient's glucose 420. UA is positive for UTI and glucose. Negative for ketones. Patient is not in DKA. Her hyperglycemia is secondary to being off her medication. Subcutaneous insulin ordered. Will repeat glucose. UA sent for urine culture. Patient denies any dysuria, urinary frequency, hematuria however will treat with a course of Keflex. On reevaluation, her glucose is 290. This has improved from the 400s. Patient would like to discharge home. I do think this is reasonable. She was told to drink plenty of fluids over the next 24 hours. Monitor her sugar closely. Limit sugar today. Take her evening diabetic medication. Follow-up with PCP. Follow-up with general surgery for reschedule colonoscopy. She confirmed understand the plan. Patient stable to discharge home. Impression: 1. Hyperglycemia secondary to diabetic being off medication for procedure 2. UTI Lab Data Labs: Laboratory Results - last 24 hr 10/23/24 10/23/24 10/23/24 11:39 11:58 12:12 WBC 7.5 RBC 4.70 Hgb 13.6 Hct 41.3 MCV 87.9 MCH 28.9 MCHC 32.9 RDW Std Deviation 41.1 RDW Coeff of Kelechi 12.8 Plt Count 298 MPV 10.2 Immature Gran % (Auto) 0.300 Neut % (Auto) 52.0 Lymph % (Auto) 34.0 [place] % (Auto) 8.2 Eos % (Auto) 4.6 Baso % (Auto) 0.9 Absolute Neuts (auto) 3.9 Absolute Lymphs (auto) 2.54 Nucleated RBC % 0 Sodium 135 Potassium 4.4 Chloride 99 Carbon Dioxide 26.1 Anion Gap 10 BUN 11 Creatinine 0.75 Est GFR (MDRD) Non-Af 90 BUN/Creatinine Ratio 14.3 Glucose 420 H Calcium 8.8 Urine Color Yellow Urine Clarity Clear Urine pH 6.5 Ur Specific [place] 1.010 Urine Protein Negative Urine Glucose (UA) 1000 H Urine Ketones Negative Urine Occult Blood 10 H Urine Nitrite Positive H Urine Bilirubin Negative Urine Urobilinogen Normal Ur Leukocyte Esterase Negative Urine RBC 0-5 SEEN Urine WBC 0 SEEN Ur Squamous Epith Cells 0-5 SEEN Urine Bacteria 2+ Urine Mucus 0 SEEN POC Glucose 375 H 10/23/24 14:15 WBC RBC Hgb Hct MCV MCH MCHC RDW Std Deviation RDW Coeff of Kelechi Plt Count MPV Immature Gran % (Auto) Neut % (Auto) Lymph % (Auto) [place] % (Auto) Eos % (Auto) Baso % (Auto) Absolute Neuts (auto) Absolute Lymphs (auto) Nucleated RBC % Sodium Potassium Chloride Carbon Dioxide Anion Gap BUN Creatinine Est GFR (MDRD) Non-Af BUN/Creatinine Ratio Glucose Calcium Urine Color Urine Clarity Urine pH Ur Specific [place] Urine Protein Urine Glucose (UA) Urine Ketones Urine Occult Blood Urine Nitrite Urine Bilirubin Urine Urobilinogen Ur Leukocyte Esterase Urine RBC Urine WBC Ur Squamous Epith Cells Urine Bacteria Urine Mucus POC Glucose 290 H ABG Data ABG results: ABG 10/23/24 12:06 Specimen Type [place] Sample Site Not entered VBG pH 7.38 VBG pO2 37 VBG HCO3 31 H VBG Total CO2 32 VBG O2 Sat (Calc) 68 VBG Base Excess 6 H POC Mix VBG pCO2 Pt Tmp 52.4 H O2 Delivery Device Not entered Discharge Plan Triage Chief Complaint: Hyperglycemia ED Provider: Yoni Taylor Dx/Rx/DC Orders Clinical Impression: Hyperglycemia due to diabetes mellitus Instructions: Blood Sugar Check Steps, ED Diabetic Hyperglycemia Prescriptions: New cephalexin 500 mg capsule 500 mg PO BID 5 Days Qty: 10 0RF No Action cetirizine 10 mg tablet 10 mg PO DAILY PRN (Reason: allergy symptoms) rosuvastatin 40 mg tablet [facility] Patient Comments: TAKE 1 TABLET BY MOUTH AT NIGHT Rx Instructions: -SUN Nurtec ODT 75 mg tablet,disintegrating 75 mg PO DAILY PRN (Reason: migraine headache) Qty: 16 2RF (DME) FreeStyle Hector 3 Plus Sensor Device See Rx Instructions .Route Qty: 2 6RF Rx Instructions: As directed Jardiance 25 mg tablet 25 mg PO DAILY Qty: 90 1RF glimepiride 2 mg tablet 2 mg PO DAILY Qty: 90 3RF metformin 1,000 mg tablet 1,000 mg PO BID Qty: 180 1RF Trulicity 0.75 mg/0.5 mL pen injector 0.75 mg subcut QWEEK Qty: 2 5RF Primary Care Provider: Tommy Rothman Referrals: Tommy Rothman MD [Primary Care Provider] - 3-5 Days Activity Restrictions/Additional Instructions: Start back on all of your medication. Reach out to general surgery to see when they can reschedule colonoscopy. Monitor your blood glucose closely. Take your antibiotics. Return back to the ED if symptoms change or worsen. Print Language: Vietnamese Disposition Disposition: Home, Self Care Discharge Date/Time: 10/23/24 14:51
[2024-10-23 14:33] LABS: Bedside Glucose 290 mg/dL (74-106)
[2024-10-23 14:41] VITALS: BP 150/92; PULSE 69; RESP 18; TEMP 36.6; O2SAT 98
[2024-10-23 14:51] VITALS: BP 150/92; PULSE 69; RESP 18; TEMP 36.6; O2SAT 98
[2024-10-23 18:37] LABS: BETA-HYDROXYBUTYRATE 0.2 mmol/L (0.0-0.3)
== END 2024-10-23 14:51 | disposition home or self-care (01) ==
PROVIDERS: Emergency Provider Surgery; PCP Family Medicine; Visit Provider Surgery
DX: E11.65 Type 2 diabetes mellitus with hyperglycemia (principal); N39.0 Urinary tract infection, site not specified; Z91.148 Patient's other noncompliance with medication regimen for other reason; E78.5 Hyperlipidemia, unspecified; G43.909 Migraine, unspecified, not intractable, without status migrainosus; Z79.84 Long term (current) use of oral hypoglycemic drugs; Z79.85 Long-term (current) use of injectable non-insulin antidiabetic drugs; Z79.899 Other long term (current) drug therapy
CPT/HCPCS: 80048; 81001; 82010; 82803; 82962; 85025; 87086; 87088; 87186; 96360; 96361; 96372; 99283; A4216

== ENCOUNTER 2024-10-28 17:07 | Inpatient (IN) | payer OTHER, SELFPAY ==
[2024-10-28] VITALS (7 sets, daily range): BP systolic 94–162; BP diastolic 59–87; PULSE 72–102; RESP 19–44; TEMP 32.7–36.4; O2SAT 96–100; BMI 29.0; BMI 28.8
--- NOTE | 2024-10-28 18:04 | ED.VIS.GI ---
HPI HPI - GI History of Present Illness Chief Complaint: Abd Pain Narrative Narrative: 63-year-old female past medical history of diabetes presents with 2 days of nausea, vomiting, and diarrhea, but developed abdominal pain mainly in the epigastrium to left upper and lower quadrants since 2:00 this morning, approximately 16 hours ago. She has past surgical history of cholecystectomy. No exacerbating or alleviating factors. They state that the pain comes and goes/waxes and wanes. She has tried to keep down liquids over the last 2 days, but continues to vomit. No alcohol intake. PFSH PFS Medical History Injury of head and neck Dietary restriction Non-smoker Sleep apnea Normal Holter exam History of echocardiogram History of stress test Cardiology follow-up encounter Obesity Abnormal cortisol level Microalbuminuric diabetic nephropathy Elevated liver function tests Migraine Gallbladder polyp Diabetes Hyperlipidemia Home Medications ?Medication ?Instructions ?Recorded ?Last Taken ?Type cetirizine 10 mg tablet 10 mg PO DAILY PRN allergy symptoms 04/19/22 Unknown History rimegepant 75 mg disintegrating 75 mg PO DAILY PRN migraine 04/26/23 Unknown Rx tablet (Nurtec ODT) headache #16 tabs Trulicity 0.75 mg/0.5 mL 0.75 mg (0.5 mL) subcut QWEEK #2 mL 03/25/24 10/11/24 Rx subcutaneous pen injector (dulaglutide) blood-glucose sensor (FreeStyle #2 ea 03/25/24 Unknown Rx Hector 3 Plus Sensor device) empagliflozin 25 mg tablet 25 mg PO DAILY #90 tabs 03/25/24 10/18/24 Rx (Jardiance) glimepiride 2 mg tablet 2 mg PO DAILY #90 tabs 03/25/24 10/21/24 Rx metformin 1,000 mg tablet 1,000 mg PO BID #180 tabs 03/25/24 10/21/24 Rx rosuvastatin 40 mg tablet 40 mg PO MOTUTHFRSA 05/27/24 10/21/24 History cephalexin 500 mg capsule 500 mg PO BID 5 days #10 caps 10/23/24 Unknown Rx Allergy/AdvReac Type Severity Reaction Status Date / Time adhesive tape Allergy Rash Verified 10/23/24 09:52 hydrocodone (From Vicodin) AdvReac Severe Nausea Verified 10/23/24 09:52 oxycodone (From Percocet) AdvReac Intermediate Nausea Verified 10/23/24 09:52 Family History Father Diabetes Grandmother Colon cancer Hypertension Sister Cancer thyroid Ovarian cancer Thyroid disorder Mother Alzheimer disease Ovarian cancer Surgical History History of laparoscopic cholecystectomy History of lumpectomy of right breast History of colonoscopy (~2016) History of esophagogastroduodenoscopy (EGD) History of bladder repair surgery History of hysterectomy Social History household members: none and other details: current occupational status: disabled Smoking Status: Never smoker second hand exposure: No alcohol intake: current alcohol intake frequency: holidays/special occasions only details: RARELY substance use type: does not use caffeine: Yes Type: carbonated beverages Number of servings: 3 what type of physical activity do you participate in: none tawny/presybeterian: None seatbelt use: always ROS ROS ED ROS Narrative Constitutional: No fever, no chills. Cardiovascular: No chest pain. No palpitations. No pedal edema. Respiratory: No cough, no shortness of breath. Abdominal: Positive epigastric to left-sided abdominal pain. 2 days of nausea, vomiting, and diarrhea. Pain constant but waxes and wanes. Genitourinary: No dysuria. No hematuria. Musculoskeletal: No myalgias. No arthralgias. EXAM Physical Exam Narrative Exam Narrative: Afebrile. Vital signs noted. Nontoxic-appearing. Cardiovascular examination reveals a regular rate and rhythm. Lungs are clear to auscultation bilaterally but patient mildly tachypneic. Abdomen is soft with tenderness in the epigastrium to left upper quadrant, no guarding or rebound. Positive bowel sounds. Neurological examination nonfocal, nonlateralizing. Patient moving all extremities, writhing on bed. Const Vital Signs: 10/28/24 17:11 10/28/24 18:18 10/28/24 21:00 Temperature 96.9 F L 90.8 F L Temperature Source Temporal Rectal Pulse Rate 72 91 85 Respiratory Rate 24 H 44 H 23 H Blood Pressure 142/79 H 162/87 H 121/71 H Blood Pressure Mean 100 112 87 Pulse Ox 97 96 99 Oxygen Delivery Method Room Air Room Air Room Air 10/28/24 22:14 Temperature 97.6 F L Temperature Source Pulse Rate 91 Respiratory Rate 19 H Blood Pressure 138/75 H Blood Pressure Mean 96 Pulse Ox 100 Oxygen Delivery Method Sepsis Attestation Sepsis Alert: Yes Sepsis Attestation: Agree w/Sepsis Date exam was performed: 10/28/24 Time exam was performed: 20:00 Possible Source of Sepsis: Unknown Sepsis Organ Dysfunction Criteria Present: Lactic Acid > 2 mmol/L and Serum CO2 < 20 mmol/L (on BMP) Fluid Resuscitation Fluid resuscitation indicated?: Yes Fluid Resuscitation ordered: 30 ml/kg fluid bolus ordered MDM MDM MDM Narrative Medical decision making narrative: Differential diagnosis includes but not limited to gastroenteritis versus diverticulitis versus pancreatitis versus bowel obstruction. I have lower suspicion for bowel obstruction as she has been having nausea and vomiting as well. Patient administered a bolus of IV fluids as well as morphine and ondansetron for analgesia. I do feel CT imaging is indicated. I have lower suspicion for ureterolithiasis based on the history and physical, but it does remain in the differential. In review of her laboratory work, she has leukocytosis of 28.9 with hemoglobin 16.1 and hematocrit 51.5 which may be more hemoconcentration. Platelet count normal at 446. Electrolyte panel was obtained and CO2 is less than 2.0 so anion gap was unable to be calculated. She has a BUN of 22 and creatinine 1.29. Glucose is elevated at 304 and with a low bicarb, concern would also be for diabetic ketoacidosis although her sugars are not excessively high. LFTs show an ALT of 70 with alk phos of 129 which I think is nonspecific. Lipase normal at 23. EKG was obtained and interpreted by myself independently and appears to be normal sinus rhythm at [address] changes. No STEMI. Patient began complaining of back pain radiating upward. Concern became for aortic dissection. CTA of the chest, abdomen, and pelvis was obtained and while there is no evidence of dissection, there is no acute process noted. No obstruction, no dissection, no aneurysm. Patient did experience lower temperature so Julio César hugger was placed. I obtained a lactic acid as well, and is elevated at 6.5. As there is no pneumonia on her CTA of the chest abdomen and pelvis, I do not think that there is a pulmonary source for this. Additionally urinalysis was obtained and is negative for infection. She was started on Zosyn and vancomycin for sepsis of unknown source given her leukocytosis, and elevated lactic acid. I discussed patient with Dr. Harrington, the hospitalist and there is also concern for DKA so ABG was added as well as beta hydroxybutyrate as there are ketones in her urine. Beta hydroxybutyrate is elevated at 9.8 and ABG did show pH of 6.7 with a bicarb of 3.4. She was administered sodium bicarbonate intravenously, and started on an insulin drip. I read discussed the patient with Dr. Harrington and she will be admitted to the ICU in guarded condition. Repeat examination of the patient after IV fluids showed improvement. Patient was never hypotensive or tachycardic. Her lactic acidosis and abdominal pain may be secondary to dehydration and diabetic ketoacidosis. Disposition is admit in guarded condition. Critical care time 32 minutes. History & Record Review Discussion w/independent historian: Patient and Family Lab Data Attestation: I reviewed the patient's lab results. Labs: Laboratory Results - last 24 hr 10/28/24 10/28/24 10/28/24 17:15 17:21 18:55 WBC 28.9 H RBC 5.53 H Hgb 16.1 H Hct 51.5 H MCV 93.1 MCH 29.1 MCHC 31.3 L RDW Std Deviation 43.5 RDW Coeff of Kelechi 12.7 Plt Count 446 MPV 10.8 Immature Gran % (Auto) 2.200 H Neut % (Auto) 78.7 H Lymph % (Auto) 15.0 L [place] % (Auto) 3.6 Eos % (Auto) 0.1 Baso % (Auto) 0.4 Absolute Neuts (auto) 22.7 H Absolute Lymphs (auto) 4.34 Nucleated RBC % 0 Differential Comment SCANNED Sodium 141 Potassium 3.7 Chloride 99 Carbon Dioxide < 2.0 L* Anion Gap UNABLE TO CALCULATE L BUN 22 H Creatinine 1.29 H Estim Creat Clear Calc 45.33 L Est GFR (MDRD) Non-Af 47 L BUN/Creatinine Ratio 17.2 Glucose 304 H Lactic Acid Calcium 9.8 Total Bilirubin 0.45 AST 31 ALT 70 H Alkaline Phosphatase 129 H Total Protein 8.3 Albumin 5.0 H Globulin 3.3 Albumin/Globulin Ratio 1.5 Lipase 23 b-Hydroxybutyric mmol/L 9.8 Urine Color Yellow Urine Clarity Clear Urine pH 5.0 Ur Specific [place] 1.020 Urine Protein 30 H Urine Glucose (UA) 1000 H Urine Ketones 150 A* Urine Occult Blood 25 H Urine Nitrite Negative Urine Bilirubin Negative Urine Urobilinogen Normal Ur Leukocyte Esterase Negative Urine RBC 0 SEEN Urine WBC 0 SEEN Ur Squamous Epith Cells 0 SEEN Urine Bacteria RARE Urine Mucus 0 SEEN POC Glucose 316 H 10/28/24 19:42 WBC RBC Hgb Hct MCV MCH MCHC RDW Std Deviation RDW Coeff of Kelechi Plt Count MPV Immature Gran % (Auto) Neut % (Auto) Lymph % (Auto) [place] % (Auto) Eos % (Auto) Baso % (Auto) Absolute Neuts (auto) Absolute Lymphs (auto) Nucleated RBC % Differential Comment Sodium Potassium Chloride Carbon Dioxide Anion Gap BUN Creatinine Estim Creat Clear Calc Est GFR (MDRD) Non-Af BUN/Creatinine Ratio Glucose Lactic Acid 6.5 H* Calcium Total Bilirubin AST ALT Alkaline Phosphatase Total Protein Albumin Globulin Albumin/Globulin Ratio Lipase b-Hydroxybutyric mmol/L Urine Color Urine Clarity Urine pH Ur Specific [place] Urine Protein Urine Glucose (UA) Urine Ketones Urine Occult Blood Urine Nitrite Urine Bilirubin Urine Urobilinogen Ur Leukocyte Esterase Urine RBC Urine WBC Ur Squamous Epith Cells Urine Bacteria Urine Mucus POC Glucose ABG Data ABG results: ABG 10/28/24 22:01 Specimen Type [place] Sample Site Not entered VBG pH 6.74 L* VBG pO2 174 H VBG Total CO2 < 5 L VBG O2 Sat (Calc) 97 H VBG Base Excess < -30 L POC Mix VBG pCO2 Pt Tmp 25.4 L O2 Delivery Device Room Air Crit Call To/Read Back Yes Blood Gas Notified Whom Reodica Blood Gas Notified Time 22:02:56 Radiography Diagnostic Testing: Clinical Impression(s) from Imaging Studies Chest/Abdomen/Pelvis CTA 10/28/24 19:18 IMPRESSION: 1. Patent thoracic and aortoiliac arteries without aneurysm, narrowing or calcification. 2. Indeterminate left adrenal nodule, likely an adenoma. Nonemergent outpatient CT or MRI abdomen (adrenal protocol) is recommended for further evaluation if not recently performed. 3. Diffuse hepatic steatosis. Reading Location: [facility] Management Discussion w/another healthcare provider: Hospitalist (Dr. Sugey Harrington) Critical Care Time Critical Care Time: Yes Critical care time (excluding procedures): 30-74 minutes (32), Including time spent:, Discussing w/Patient &/or Family/Landscaper Helper, Discussing w/Consultants, Arranging Admission or Transfer and Performing Direct Patient Care at Bedside Discharge Plan Triage Chief Complaint: Abd Pain ED Provider: Sharath Quesada Dx/Rx/DC Orders Clinical Impression: Diabetic ketoacidosis, Abdominal pain, Nausea vomiting and diarrhea Primary Care Provider: Tommy Rothman
[2024-10-28] MEDS: 0.9% Normal Saline (1000mL) 1,000 ML 999 ML IV ×3 (18:15→22:09)
[2024-10-28] MEDS: Morphine 4 MG/ML Syringe IV ×2 (18:16→18:49)
[2024-10-28] MEDS: Ondansetron 4 MG/2 ML Vial IV (18:16)
[2024-10-28 18:27] LABS: Absolute Lymphocyte Count 4.34 X10^3/uL (0.83-4.51); Absolute Neutrophil Count 22.7 X10^3/uL (2.0-7.7); Basophil# 0.12 X10^3/uL; Basophil% 0.4 % (0-1); Eosinophil# 0.04 X10^3/uL; Eosinophils% 0.1 % (0-5); Hematocrit 51.5 % (37-47); Hemoglobin 16.1 g/dL (12.0-15.0); Lymphocyte # 4.34 X10^3/ul (0.83-4.51); Mean Corp Hgb Conc 31.3 g/dL (32-36); Mean Corpuscular Hgb 29.1 pg (27.0-32.0); Mean Corpuscular Volume 93.1 fL (81-99); Mean Platelet Vol. 10.8 fl (6.2-12.0); Monocyte# 1.04 X10^3/uL; Monocyte% 3.6 % (0-10); NRBC Flagged by Analyzer 0 % (0-5); Neutrophil # 22.72 X10^3/uL (2.7-7.7); Neutrophil % 78.7 % (47-70); POSITIVE DIFFERENTIAL YES; Platelet Count 446 K/mm3 (150-450); RBC Distribution Width CV 12.7 % (11.6-14.6); RBC Distribution Width SD 43.5 fl (35.1-43.9); Red Blood Count 5.53 M/mm3 (4.2-5.4); White Blood Count 28.9 K/mm3 (4.4-11.0)
[2024-10-28 18:31] LABS: Differential Indicated SCAN CRITERIA MET
[2024-10-28 18:36] LABS: Bedside Glucose 316 mg/dL (74-106)
[2024-10-28 18:53] LABS: Lipase 23 U/L (13-75)
[2024-10-28 19:01] LABS: Mucous, Urine 0 SEEN /hpf (<or=2+); Red Blood Cells-Urine 0 SEEN /hpf (0-5); Squamous Epithelial Cells - UA 0 SEEN /hpf (5-10); White Blood Cells 0 SEEN /hpf (0-5)
[2024-10-28 19:08] LABS: Color, Urine Yellow (Yellow); Glucose, Dipstick 1000 mg/dl (Normal); Leukocyte Esterase-Dipstick Negative /ul (Negative); Nitrite-Dipstick Negative (Negative); Occult Blood-Urine 25 /ul (Negative); Protein-Dipstick 30 mg/dl (Negative); Urine Bilirubin Dipstick Negative (Negative); Urine Clarity Clear (Clear); Urine Urobilinogen Normal (Normal)
[2024-10-28 19:14] LABS: Differential Comment SCANNED
--- NOTE | 2024-10-28 19:18 | CT_ITS ---
PROCEDURE: CTA CHST, ABD, PEL W AND/OR WO 10/28/2024 REASON FOR EXAM: 63-year-old female, PAIN, concern for dissection. TECHNIQUE: CTA imaging of the chest, abdomen and pelvis without and with intravenous contrast. Coronal and Sagittal reconstruction series were provided. 3D, 3D post processing, 3D reconstructions, Maximum intensity projection (MIPs) Volume rendering and Shaded surface rendering was provided. CONTRAST: Isovue 370 VOLUME: 100mL One or more dose reduction techniques were used (e.g., Automated exposure control, adjustment of the mA and/or kV according to patient size, use of iterative reconstruction technique). RADIATION DOSE SUMMARY: CTDlvol: 32 mGy DLP: 1100 mGycm COMPARISON: None. FINDINGS: Heart: The heart is normal in size without pericardial effusion. The great vessels are normal in caliber. Minimal calcific plaque of the coronary arteries and thoracic aorta. Pulmonary Vessels: Grossly patent. Thoracic Aorta: Atherosclerotic plaques. No aneurysm or dissection. Abdominal Aorta: No abdominal aortic aneurysm. No significant calcific or soft plaque. Mesenteric Arteries: Widely patent. Renal Arteries: The single paired renal arteries are widely patent. Iliac Arteries: Widely patent without aneurysm or calcification. Other Findings: No thoracic lymphadenopathy. The central airways are patent without pulmonary mass, pleural effusion or pneumothorax. Diffuse hepatic steatosis. Indeterminate left adrenal nodule measuring 1.7 cm. No hydronephrosis or nephrolithiasis. Prior hysterectomy. Normal caliber bowel loops. No ascites or free air. Thoracolumbar spondylosis. No aggressive osseous lesions. CT/CTA Chst, Abd, Pel W and/or WO IMPRESSION: 1. Patent thoracic and aortoiliac arteries without aneurysm, narrowing or calci fication. 2. Indeterminate left adrenal nodule, likely an adenoma. Nonemergent outpatien t CT or MRI abdomen (adrenal protocol) is recommended for further evaluation if not recently performed. 3. Diffuse hepatic steatosis. Reading Location: [id number]
[2024-10-28 19:26] LABS: ALB/GLOB Ratio 1.5 RATIO (0.9-2.4); AST(SGOT) 31 U/L (<=31); Alanine Aminotransfer ALT/SGPT 70 U/L (<=34); Alkaline Phosphatase 129 U/L (35-104); Anion Gap UNABLE TO CALCULATE (5-15); BUN 22 mg/dL (4-19); BUN/Creat Ratio 17.2 RATIO (10-20); Calcium,Total 9.8 mg/dL (7.6-11.0); Carbon Dioxide < 2.0 mmol/L (21.0-32.0); Chloride 99 mmol/L (98-108); Creatinine, Serum 1.29 mg/dL (0.70-1.20); EST Glomerular Filtration Rate 47 (>60); Estimated Creatinine Clearance 45.33 ml/min (50-250); Globulin 3.3 g/dL (2.2-4.2); Glucose 304 mg/dL (70-99); Potassium 3.7 mmol/L (3.3-5.1); Protein, Total 8.3 g/dL (5.9-8.4); Sodium Level 141 mmol/L (133-145); Total Bilirubin 0.45 mg/dL (0.00-1.30)
[2024-10-28 19:30] LABS: Bacteria RARE /hpf (None Seen); Ketone-Dipstick 150 mg/dl (Negative)
[2024-10-28 20:45] LABS: Lactic Acid 6.5 mmol/L (0.0-2.0)
[2024-10-28] MEDS: Piperacil/Tazobactam 4.5 GM in 0.9% Normal Saline (100mL MB+) 100 ML IV (21:35)
[2024-10-28] MEDS: fentaNYL 100 MCG/2 ML Ampul 50 MCG IV (21:54)
[2024-10-28 21:59] LABS: BETA-HYDROXYBUTYRATE 9.8 mmol/L (0.0-0.3)
[2024-10-28 22:06] LABS: Blood Gas Specimen Type VEN; O2 Delivery Device Room Air; SITE Not entered; Time Given 22:02:56; VBG BASE EXCESS < -30 mmol/L (-1.0-3.5); VBG PO2 174 mmHg (25-40); VBG SO2 97 % (50-70); VBG TCO2 < 5 mmol/L (23-33); VBG pCO2 25.4 mmHg (41-51); VBG pH 6.74 (7.32-7.42)
--- NOTE | 2024-10-28 22:10 | ED.RN ---
pt received total 2500mL bolus for sepsis fluid resuscitation.
--- NOTE | 2024-10-28 22:18 | HP.PCM.HOS_ITS ---
HPI - General General Date of Admission: 10/28/24 Date of Service: 10/28/24 Chief Complaint: N/V/D, abdominal pain HPI Narrative The patient is a 63 y/o F w/ PMHx: Diabetes mellitus type II, HTN, HLD, JOSH, Chronic migraines, CKD stage II based on GFR trending who presents to the [facility] ED on 10/28/24 with history of generalized abdominal discomfort, cramping, diarrhea in addition to nausea and emesis ongoing for 2 days with pain also per report initially primarily in the left abdomen as well as epigastric region although on exam seems diffuse with recent history of 10/23/2024 planned colonoscopy for which she had accidentally stopped all of her diabetic medications at that time prior to the procedure had significant hyperglycemia but was asymptomatic at that time unfortunately worsening since. She notes that the abdominal discomfort is 10 out of 10 currently but wax and wanes. She is unable to keep anything down. Patient does report that the stools had been darker in appearance. Workup in the ED included T96.9 Temporally, heart rate 72, BP 142/79, respiratory rate 24, 97% on room air with most recent repeat vitals T97.6, heart rate 91, BP 130/75, respiratory rate 19, under percent room air, CBC with WBC 28.9, he 1 16.1, platelets 446 with left shift, VBG with pH 6.74, pO2 174 performed on room air, CMP with carbon oxide less than 2, anion gap not calculated, BUN/creat 22/1.29, GFR 47, glucose 304, lactic acid 6.5, hepatic profile with ALT 70, alk phos 129 otherwise not marked appearing, hydroxybutyrate 9.8, urinalysis with spec gravity 1.020, protein 30, glucose of thousand, ketones 150, occult blood 25 with no obvious evidence of UTI, CTA chest/abdomen/pelvis with a patent thoracic and aorta or iliac arteries without any aneurysm, narrowing or calcification, indeterminate left adrenal nodule likely adenoma, diffuse hepatic steatosis, no acute intra-abdominal findings. In the ED given initial presentation concern for sepsis initially with 30 cc/kg IV fluids administered in addition to IV vancomycin, IV Zosyn, Zofran 4 mg IV x 1, morphine 4 mg IV x 2, fentanyl 50 mcg IV x 2 as well as an amp of bicarb. Case was discussed between hospitalist and ED physician and eventually VBG as well as hydroxybutyrate acid level was requested given concern for DKA and eventually patient was placed on insulin drip with additional IV fluids administered. FOR[facility]LY [facility] Medical History Injury of head and neck Dietary restriction Non-smoker Sleep apnea Normal Holter exam History of echocardiogram History of stress test Cardiology follow-up encounter Obesity Abnormal cortisol level Microalbuminuric diabetic nephropathy Elevated liver function tests Migraine Gallbladder polyp Diabetes Hyperlipidemia Home Medications ?Medication ?Instructions ?Recorded ?Last Taken ?Type cetirizine 10 mg tablet 10 mg PO DAILY PRN allergy s ymptoms 04/19/22 Unknown History rimegepant 75 mg disintegrating 75 mg PO DAILY PRN efrain sean 04/26/23 Unknown Rx tablet (Nurtec ODT) headache #16 tabs Trulicity 0.75 mg/0.5 mL 0.75 mg (0.5 mL) subcut QWEE K #2 mL 03/25/24 10/11/24 Rx subcutaneous pen injector (dulaglutide) blood-glucose sensor (FreeStyle #2 ea 03/25/24 Unknown Rx Hector 3 Plus Sensor device) empagliflozin 25 mg tablet 25 mg PO DAILY #90 tabs 10/18/24 Rx (Jardiance) glimepiride 2 mg tablet 2 mg PO DAILY #90 tabs 03/2510/21/24 Rx metformin 1,000 mg tablet 1,000 mg PO BID #180 tabs 10/21/24 Rx rosuvastatin 40 mg tablet 40 mg PO MOTUTHFRSA 05/27/24 10/21/24 History cephalexin 500 mg capsule 500 mg PO BID 5 days #10 cap s 10/23/24 Unknown Rx Allergy/AdvReac Type Severity Reaction Status Date / Time adhesive tape Allergy Rash Verified 10/23/24 09:52 hydrocodone (From Vicodin) AdvReac Severe Nausea Verified 10/23/24 09:52 oxycodone (From Percocet) AdvReac Intermediate Nausea Verified 10/23/24 09:52 Family History Father Diabetes Grandmother Colon cancer Hypertension Sister Cancer thyroid Ovarian cancer Thyroid disorder Mother Alzheimer disease Ovarian cancer Surgical History History of laparoscopic cholecystectomy History of lumpectomy of right breast History of colonoscopy (~2016) History of esophagogastroduodenoscopy (EGD) History of bladder repair surgery History of hysterectomy Social History household members: none and other details: current occupational status: disabled Smoking Status: Never smoker second hand exposure: No alcohol intake: current alcohol intake frequency: holidays/special occasions only details: RARELY substance use type: does not use caffeine: Yes Type: carbonated beverages Number of servings: 3 what type of physical activity do you participate in: none tawny/restoration: None seatbelt use: always ROS ROS Narrative Admission Review of Systems: CONSTITUTIONAL: No weight loss, fever, chills, + weakness or fatigue. HEENT: Eyes: No visual loss, blurred vision, double vision or yellow sclerae. Ears, Nose, Throat: No hearing loss, sneezing, congestion, runny nose or sore throat. SKIN: No rash or itching, lesions, wounds. CARDIOVASCULAR: No chest pain, chest pressure or chest discomfort, palpitations, edema, orthopnea, syncopal events. RESPIRATORY: No shortness of breath, cough or sputum, wheezing, hemoptysis. GASTROINTESTINAL: + anorexia, nausea, vomiting, diarrhea, abdominal pain, questionable dark stools. No overt melena, BRBPR. GENITOURINARY: No dysuria, frequency, urgency or retention. NEUROLOGICAL: + Chronic migraines. No dizziness, syncope, paralysis, ataxia, numbness or tingling in the extremities, focal weakness, change in bowel or bladder control, seizure. MUSCULOSKELETAL: + muscle, back pain, joint pain or stiffness. HEMATOLOGIC: No anemia, bleeding or bruising. LYMPHATICS: No enlarged nodes. No history of splenectomy. PSYCHIATRIC: No history of depression or anxiety. ENDOCRINOLOGIC: No reports of sweating, cold or heat intolerance. No polyuria or polydipsia. ALLERGIES: No history of asthma, hives, eczema or rhinitis. Vital Signs Vital Signs Vital Signs: 10/28/24 17:11 10/28/24 18:18 10/28/24 21:00 Temperature 96.9 F L 90.8 F L Temperature Source Temporal Rectal Pulse Rate 72 91 85 Respiratory Rate 24 H 44 H 23 H Blood Pressure 142/79 H 162/87 H 121/71 H Blood Pressure Mean 100 112 87 Pulse Ox 97 96 99 Oxygen Delivery Method Room Air Room Air Room Air 10/28/24 22:14 Temperature 97.6 F L Temperature Source Pulse Rate 91 Respiratory Rate 19 H Blood Pressure 138/75 H Blood Pressure Mean 96 Pulse Ox 100 Oxygen Delivery Method Weight Weight: 169 lb 1.513 oz Body Mass Index (BMI) 29.0 Physical Exam Narrative Physical Examination: General: Awake, alert, oriented to self, place, recent events, uncomfortable appearing, remains cooperative, laying in ED bed, ill-appearing. Skin: Normal color, normal turgor, no icterus, no cyanosis. HEENT: AT/NC, EOMI, PERRLA, dry MM, no carotid bruits or JVD noted. Lungs: Mildly diminished, greater bases, mildly increased respiratory rate but no distress, no rales, ronchi or wheezing. Heart: Currently regular rate and rhythm; no gallop, rub audible. Abdomen: Soft, mild generalized discomfort with palpation but no rebound or guarding, ND, hyperactive BS, no appreciated HSM. Extremities: No cyanosis, clubbing, or edema. Neurological: Patient awake, alert, oriented as noted, cognitive function intact; pupils equally reactive to light and accommodation, cranial nerves gross normal, moving all 4 extremities, no focal deficits, strength severely globally decreased secondary to acute presentation complaints Psychiatric: Affect appears flat, fatigued, ill-appearing no acute evidence of depressive or anxiety feelings. Results Lab / Micro Data 10/28/24 17:21 10/28/24 17:21 Labs: Laboratory Results - last 24 hr 10/28/24 17:15: POC Glucose 316 H 10/28/24 17:21: WBC 28.9 H, RBC 5.53 H, Hgb 16.1 H, Hct 51.5 H, MCV 93.1, MCH 29.1, MCHC 31.3 L, RDW Std Deviation 43.5, RDW Coeff of Kelechi 12.7, Plt Count 446, MPV 10.8, Immature Gran % (Auto) 2.200 H, Neut % (Auto) 78.7 H, Lymph % (Auto) 15.0 L, Stewart % (Auto) 3.6, Eos % (Auto) 0.1, Baso % (Auto) 0.4, Absolute Neuts (auto) 22.7 H, Absolute Lymphs (auto) 4.34, Nucleated RBC % 0, Differential Comment SCANNED, Sodium 141, Potassium 3.7, Chloride 99, Carbon Dioxide < 2.0 L* , Anion Gap UNABLE TO CALCULATE L, BUN 22 H, Creatinine 1.29 H, Estim Creat Clear Calc 45.33 L, Est GFR (MDRD) Non-Af 47 L, BUN/Creatinine Ratio 17.2, G lucose 304 H, Calcium 9.8, Total Bilirubin 0.45, AST 31, ALT 70 H, Alkaline Phosphatase 129 H, Total Protein 8.3, Albumin 5.0 H, Globulin 3.3, Albumin/Globulin Ratio 1.5, Lipase 23, b-Hydroxybutyric mmol/L 9.8 10/28/24 18:55: Urine Color Yellow, Urine Clarity Clear, Urine pH 5.0, Ur Specific [place] 1.020, Urine Protein 30 H, Urine Glucose (UA) 1000 H, Urine Ketones 150 A*, Urine Occult Blood 25 H, Urine Nitrite Negative, Urine Bilirubin Negative, Urine Urobilinogen Normal, Ur Leukocyte Esterase Negative, Urine RBC 0 SEEN, Urine WBC 0 SEEN, Ur Squamous Epith Cells 0 SEEN, Urine Bacteria RARE, Urine Mucus 0 SEEN 10/28/24 19:42: Lactic Acid 6.5 H* ABG Data ABG results: ABG 10/28/24 22:01 Specimen Type [place] Sample Site Not entered VBG pH 6.74 L* VBG pO2 174 H VBG Total CO2 < 5 L VBG O2 Sat (Calc) 97 H VBG Base Excess < -30 L POC Mix VBG pCO2 Pt Tmp 25.4 L O2 Delivery Device Room Air Crit Call To/Read Back Yes Blood Gas Notified Whom Re[place] Blood Gas Notified Time 22:02:56 Imaging Radiology Impression Chest/Abdomen/Pelvis CTA 10/28/24 19:18 IMPRESSION: 1. Patent thoracic and aortoiliac arteries without aneurysm, narrowing or calcification. 2. Indeterminate left adrenal nodule, likely an adenoma. Nonemergent outpatient CT or MRI abdomen (adrenal protocol) is recommended for further evaluation if not recently performed. 3. Diffuse hepatic steatosis. Reading Location: [facility] Assessment & Plan Assessment/Plan (1) Nausea vomiting and diarrhea: (2) Diabetic ketoacidosis: PLAN: Plan The patient is a 63 y/o F w/ PMHx: Diabetes mellitus type II, HTN, HLD, JOSH, Chronic migraines, CKD stage II based on GFR trending who presents to the [facility] ED on 10/28/24 with history of generalized abdominal discomfort, cramping, diarrhea in addition to nausea and emesis ongoing for 2 days with pain also per report initially primarily in the left abdomen as well as epigastric region although on exam seems diffuse with recent history of 10/23/2024 planned colonoscopy for which she had accidentally stopped all of her diabetic medications at that time prior to the procedure had significant hyperglycemia but was asymptomatic at that time unfortunately worsening since. #1. Nausea, emesis, diarrhea with abdominal pain suspected secondary to primarily DKA w/ Diabetes mellitus type II but still significant SIRS with concern for possible overlapping infection of unclear etiology with significant associated expected metabolic disturbances: Will admit to the ICU, consult exhibits manager per protocol, continue on insulin drip, check serial K+, glucose w/ IVF changes pending these levels, serial chemistry, obtain mag, phos daily w/ repletion as needed, transition to home SC regimen when gap closed w/ overlap on drip, nutrition consultation. Encouraged diet and insulin regimen compliance. Given presentation concerns will continue broad-spectrum antibiotic therapies with IV vancomycin and IV Zosyn, pending blood culture per ED, urinalysis not marked appearing, no obvious evidence of any pneumonia or infiltrates on scan. Procalcitonin requested. De-escalate off antibiotic therapies once clinically appropriate. #2. Acute kidney injury on CKD stage II per GFR trend: Secondary to GI losses and ##1 as noted. Admission BUN/Cr 22/1.29, GFR 47, prior baseline creatinine noted to be primarily 0.6-0.8. Will continue to aggressively hydrate, hold nephrotoxic medications and repeat chemistry in AM. If no improvement would plan FeNa assessment. #3. Hypertension: Noted history, per current list does not appear to be on regimen, clarified to be certain #4. Hyperlipidemia: We will continue patient home statin therapy. #5. Chronic migraines: Will temporally hold patient as needed agents, may add if necessary, no current reported severe headache. #6. JOSH: Given episodes of nausea and emesis will avoid using CPAP in this state, once improved may add back. #7. Allergic rhinitis: Will temporally hold as needed cetirizine regimen. #8. DVT prophylaxis: Heparin. #9. CODE status: Patient does not have a healthcare power of workers compensation defense attorney or living will in place but her daughter who is present would be her medical decision- maker in addition to her son and [id number] if necessary she notes. Discussed CODE status at length including difference between FULL code, DNR-CCA and DNR-CC status. Following discussions about the differences in these status, requested Full Code status. Advanced Care Planning Face to Face Time: 16 minutes. Charges/Coding Visit Charges Inpatient E&M: 73750 Init Hosp L3 Procedures Hospitalists Procedures: 45790 Advncd Care Plan 30 Min
--- NOTE | 2024-10-28 22:19 | EKG12_ITS ---
Test Reason : DYSRHYTHMIA Blood Pressure : */* mmHG Vent. Rate : 99 BPM Atrial Rate : 99 BPM P-R Int : 152 ms QRS Dur : 82 ms QT Int : 394 ms P-R-T Axes : 265 41 81 degrees QTcB Int : 505 ms Unusual P axis, possible ectopic atrial rhythm Nonspecific T wave abnormality Abnormal ECG Confirmed by Stephen Chatman ([id number]), newspaper editor INGRID BIRCH ([id number]) on 10/29/2024 7:51:39 AM Referred By: Confirmed By: Stephen Chatman
[2024-10-28] MEDS: Vancomycin HCl 2,000 MG in 0.9% Normal Saline (500mL Bag) 500 ML 250 MG IV (22:23)
[2024-10-28] MEDS: Sodium Bicarbonate 8.4% 50 ML Syringe 50 MEQ IV (22:24)
[2024-10-28] MEDS: Insulin Lispro 100 UNIT in 0.9% Normal Saline (100mL Bag) 99 ML 7.7 UNIT CONT INF (22:59)
--- NOTE | 2024-10-28 23:43 | PCM.RX.CS ---
Consult Antibiotic Management Pharmacy has been consulted to manage selected antibiotic: Vancomycin Type of Intervention Type of Consult: New start Suspected Infection Suspected Infection: Sepsis Labs Labs: Sodium 141 mmol/L (133-145) 10/28/24 17:21 Potassium 3.7 mmol/L (3.3-5.1) 10/28/24 17:21 Chloride 99 mmol/L (98-108) 10/28/24 17:21 Carbon Dioxide < 2.0 mmol/L (21.0-32.0) L* 10/28/24 17:21 Anion Gap UNABLE TO CALCULATE (5-15) L 10/28/24 17:21 BUN 22 mg/dL (4-19) H 10/28/24 17:21 Creatinine 1.29 mg/dL (0.70-1.20) H 10/28/24 17:21 Est GFR (MDRD) Non-Af 47 (>60) L 10/28/24 17:21 BUN/Creatinine Ratio 17.2 RATIO (10-20) 10/28/24 17:21 Glucose 304 mg/dL (70-99) H 10/28/24 17:21 Estimated Creatinine Clearance Estimated Creatinine Clearance: 45.33 Goal Trough Goal Trough: 15-20 mcg/mL Pharmacy Plan for Drug Dosing Pharmacy Plan for Drug Dosing: NEW START IV VANCOMYCIN Consulting Physician: Dr. Harrington Indication: Sepsis Goal Trough: 15-20 SrCr: 1.29 CrCl: 45.33 ml/min Comments: Received 2000mg x1 dose in ED @ 22:23 10/28/24 Vancomycin Dose: 500mg Q12H to start @ 10:30 10/29/24 Pending Level: 10/30/24 @ 10:00 Pharmacy Service will continue to monitor and adjust dosing as required. Follow-Up Labs Follow-Up Labs: Trough: Vancomycin (10/30/24 @ 10:00)
[2024-10-28 23:49] LABS: Reflex Lactate? Y
[2024-10-29] VITALS (26 sets, daily range): BP systolic 94–121; BP diastolic 53–87; PULSE 82–126; RESP 13–23; TEMP 34.3–37.6; O2SAT 90–97; BMI 28.5
[2024-10-29] MEDS: 0.9% Normal Saline (1000mL) 1,000 ML 150 ML IV (00:09)
[2024-10-29] MEDS: Insulin Lispro 100 UNIT in 0.9% Normal Saline (100mL Bag) 99 ML 7.6 UNIT CONT INF (00:11)
[2024-10-29 00:38] LABS: Procalcitonin 0.62 ng/mL (<=0.10)
[2024-10-29] MEDS: Sodium Bicarbonate 8.4% 50 ML Syringe 50 MEQ IV (00:41)
[2024-10-29] MEDS: Pantoprazole Sodium 40 MG in 0.9% Normal Saline (100mL MB+) 100 ML 330 MG IV ×3 (00:41→21:54)
[2024-10-29 00:51] LABS: Anion Gap 29 (5-15); BUN 25 mg/dL (4-19); BUN/Creat Ratio 22.8 RATIO (10-20); Calcium,Total 7.9 mg/dL (7.6-11.0); Carbon Dioxide 4.9 mmol/L (21.0-32.0); Chloride 111 mmol/L (98-108); Creatinine, Serum 1.08 mg/dL (0.70-1.20); EST Glomerular Filtration Rate 58 (>60); Glucose 313 mg/dL (70-99); Lactic Acid 3.6 mmol/L (0.0-2.0); Potassium 4.8 mmol/L (3.3-5.1); Sodium Level 145 mmol/L (133-145)
[2024-10-29 00:52] LABS: Mucous, Urine 0 SEEN /hpf (<or=2+); Squamous Epithelial Cells - UA 0 SEEN /hpf (5-10); White Blood Cells 0 SEEN /hpf (0-5)
[2024-10-29 00:59] LABS: Color, Urine Straw (Yellow); Glucose, Dipstick 1000 mg/dl (Normal); Leukocyte Esterase-Dipstick Negative /ul (Negative); Nitrite-Dipstick Negative (Negative); Occult Blood-Urine 50 /ul (Negative); Protein-Dipstick 30 mg/dl (Negative); Urine Bilirubin Dipstick Negative (Negative); Urine Clarity Clear (Clear); Urine Urobilinogen Normal (Normal)
--- NOTE | 2024-10-29 00:59 | PCMCONS.TICU ---
HPI Consult Data Date of Consult: 10/29/24 HPI Narrative Reason for Consultation: DKA HPI Narrative: 63Y F PMH DM2, HTN, HLD, JOSH, Chronic migraines, CKD stage II who presented overnight with generalized abdominal discomfort, cramping, N/V, diarrhea x 2 days. Recently she had planned colonoscopy on 10/23/2024 which was postponed due to hyperglycemia after she accidentally stopped all of her diabetic medications and she was Dx with a UTI at that time. In the ED she was markedly hypothermic and had several severe lab abnl most c/w severe DKA. There was also concern for possible sepsis and she received 2.5L fluid bolus along with emp IV Abx. CT chest/abd/pelvis was unrevealing for acute process. She was ultimately admitted to the ICU on insulin gtt and I was consulted for assistance in critical care management. Pt received quite a bit of narcotic pain medication in the ED and is drowsy at the time of my visit. Hx obtained primarily from chart review and discussing with ICU nurse. Current drips Insulin gtt NS @ 150 [facility] Medical History Injury of head and neck Dietary restriction Non-smoker Sleep apnea Normal Holter exam History of echocardiogram History of stress test Cardiology follow-up encounter Obesity Abnormal cortisol level Microalbuminuric diabetic nephropathy Elevated liver function tests Migraine Gallbladder polyp Diabetes Hyperlipidemia Home Medications ?Medication ?Instructions ?Recorded ?Last Taken ?Type cetirizine 10 mg tablet 10 mg PO DAILY PRN allergy symptoms 04/19/22 Unknown History rimegepant 75 mg disintegrating 75 mg PO DAILY PRN migraine 04/26/23 Unknown Rx tablet (Nurtec ODT) headache #16 tabs Trulicity 0.75 mg/0.5 mL 0.75 mg (0.5 mL) subcut QWEEK #2 mL 03/25/24 10/11/24 Rx subcutaneous pen injector (dulaglutide) blood-glucose sensor (FreeStyle #2 ea 03/25/24 Unknown Rx Hector 3 Plus Sensor device) empagliflozin 25 mg tablet 25 mg PO DAILY #90 tabs 03/25/24 10/18/24 Rx (Jardiance) glimepiride 2 mg tablet 2 mg PO DAILY #90 tabs 08/27/24 03/25/25 Rx metformin 1,000 mg tablet 1,000 mg PO BID #180 tabs 03/25/24 10/21/24 Rx rosuvastatin 40 mg tablet 40 mg PO MOTUTHFRSA high 05/27/24 10/21/24 History cholesterol cephalexin 500 mg capsule 500 mg PO BID 5 days #10 caps 10/23/24 Unknown Rx carvedilol 3.125 mg tablet (Coreg) 3.125 mg PO BID blood pressure 10/29/24 Unknown History citalopram 20 mg tablet 20 mg PO DAILY depression 10/29/24 Unknown History fludrocortisone 0.1 mg tablet 0.1 mg PO DAILY pt unsure 10/29/24 Unknown History ropinirole 0.25 mg tablet 0.25 mg PO QHS pt unable 10/29/24 Unknown History verapamil 180 mg 24 hr 180 mg PO DAILY blood pressure 10/29/24 Unknown History capsule,extended release Allergy/AdvReac Type Severity Reaction Status Date / Time adhesive tape Allergy Rash Verified 10/23/24 09:52 hydrocodone (From Vicodin) AdvReac Severe Nausea Verified 10/23/24 09:52 oxycodone (From Percocet) AdvReac Intermediate Nausea Verified 10/23/24 09:52 Family History Father Diabetes Grandmother Colon cancer Hypertension Sister Cancer thyroid Ovarian cancer Thyroid disorder Mother Alzheimer disease Ovarian cancer Surgical History History of laparoscopic cholecystectomy History of lumpectomy of right breast History of colonoscopy (~2015) History of esophagogastroduodenoscopy (EGD) History of bladder repair surgery History of hysterectomy Social History household members: none and other details: current occupational status: disabled Smoking Status: Never smoker second hand exposure: No alcohol intake: current alcohol intake frequency: holidays/special occasions only details: RARELY substance use type: does not use caffeine: Yes Type: carbonated beverages Number of servings: 3 what type of physical activity do you participate in: none tawny/rastafarian: None seatbelt use: always ROS Review of Systems ROS Unobtainable: due to mental condition Objective Data Objective Data Vital Signs: Vital Signs Last response Temperature 34.5 C L 10/29/24 00:24 Temperature Source Core 10/29/24 00:24 Pulse Rate 104 H 10/29/24 00:24 Respiratory Rate 22 H 10/29/24 00:24 Blood Pressure 102/60 10/29/24 00:24 Blood Pressure Mean 74 10/29/24 00:24 Blood Pressure Source Monitor 10/29/24 00:24 Blood Pressure Position Semi-Fowlers 10/29/24 00:24 Blood Pressure Location Left Arm 10/29/24 00:24 Pulse Ox 96 10/29/24 00:24 Oxygen Delivery Method Room Air 10/29/24 00:24 I&O: I&O Last 24 Hours 10/28/24 10/28/24 10/29/24 11:59 23:59 11:59 Intake Total 2415.85 / 2415.85 548.98 / 548.98 Output Total 1550 / 1550 Balance 2415.85 / 865.85 -1001.02 / -1001.02 I&O: Total Stay 10/28/24 17:07 thru 10/29/24 00:41 Intake Total 2964.83 Output Total 1550 Balance 1414.83 Current Meds Ordered / Administered: Current meds ordered / Administered Generic Name Dose Route Start Last Admin Trade Name Freq PRN Reason Stop Dose Admin Acetaminophen 650 mg 10/28/24 23:16 Acetaminophen 325 Mg Tablet PO Q4H PRN PRN Fever, pain 1-10/10 Acetaminophen 650 mg 10/28/24 23:16 Acetaminophen 650 Mg Suppository RC Q4H PRN PRN Fever, pain 1-10 Al Hydroxide/Mg Hydroxide 30 ml 10/28/24 23:16 Mag Hydrox/Al Hydrox/Simeth 30 Ml Udc PO Q6H PRN PRN Gastric Burning Albuterol Sulfate 2.5 mg 10/28/24 23:16 Albuterol 2.5 Mg/3 Ml Vial.Neb. INHALATION Q2H PRN PRN Dyspnea, wheezing Atorvastatin Calcium 80 mg 10/28/24 23:30 10/29/24 00:09 Atorvastatin Calcium 80 Mg Tablet PO Not Given [id number] MYLES Guaifenesin 10 ml 10/28/24 23:16 Guaifenesin 10 Ml Udc (200mg/10ml) PO Q4H PRN PRN COUGH Heparin Sodium (Porcine) 5,000 unit 10/29/24 10:00 Heparin Injection (Vial) 5,000 Unit/Ml Vial SC Q12 MYLES Hydralazine HCl 10 mg 10/28/24 23:16 Hydralazine 20 Mg/Ml Vial IV Q4H PRN PRN SBP > 160 Protocol Sodium Chloride 1,000 mls @ 150 mls/hr 10/28/24 23:16 10/29/24 00:09 IV 10/29/24 09:15 150 mls/hr .Q6H40M MYLES Administration Dextrose 250 mls @ 999 mls/hr 10/28/24 23:16 Dextrose 10%-Water IV .Q16M PRN Hypoglycemic Protocol Protocol Pantoprazole Sodium 40 mg/ 110 mls @ 330 mls/hr 10/29/24 00:00 10/29/24 00:41 Sodium Chloride IV 330 mls/hr Q12 MYLES Administration Insulin Human Lispro 100 unit/ 100 mls @ 7.67 mls/hr 10/29/24 00:00 10/29/24 00:11 Sodium Chloride CONT INF 0.1 units/kg/hr .Q13H3M MYLES 7.6 mls/hr Administration Protocol 0.1 UNITS/KG/HR Vancomycin IV-PHARMACY TO DOSE 500 mls @ 250 mls/hr 10/28/24 23:30 1 each/ Sodium Chloride IV PRN PRN Rx to Dose Protocol Piperacillin Sod/Tazobactam 50 mls @ 12.5 mls/hr 10/29/24 06:00 Sod 3.375 gm/ Sodium Chloride IV Q8 MYLES Sodium Chloride 100 mls @ 15 mls/hr 10/28/24 23:33 IV .Q6H40M PRN Saline Flush Sodium Chloride 100 mls @ 15 mls/hr 10/28/24 23:33 IV .Q6H40M PRN Additional IVPB Infusion Vancomycin HCl 500 mg in 100 mls @ 100 mls/hr 10/29/24 10:30 IV Q12H MYLES Melatonin 3 mg 10/28/24 23:16 Melatonin 3 Mg Tablet PO QHS PRN PRN INSOMNIA Morphine Sulfate 2 mg 10/28/24 23:16 Morphine 2 Mg/Ml Syringe IV Q3H PRN PRN Pain Score 6-10 Ondansetron HCl 4 mg 10/28/24 23:16 Ondansetron 4 Mg/2 Ml Vial IV Q8H PRN PRN NAUSEA/VOMITING Oxycodone HCl 5 mg 10/28/24 23:16 Oxycodone 5 Mg Tablet PO Q4H PRN PRN Pain Score 4-10 Prochlorperazine Edisylate 5 mg 10/28/24 23:16 Prochlorperazine 10 Mg/2 Ml Vial IV Q4H PRN PRN Breakthrough Nausea/Vomiting Sodium Chloride 10 - 40 ml 10/28/24 23:33 0.9% Saline Lock 10 Ml Syringe IV UD PRN SALINE FLUSH Vancomycin Protocol 1 lab 10/30/24 09:00 Vancomycin Trough/Random Due MC 10/30/24 11:00 DAILY [facility] Lab / Micro Data 10/28/24 17:21 10/28/24 23:55 Labs: Laboratory Results - last 24 hr 10/28/24 17:15: POC Glucose 316 H 10/28/24 17:21: WBC 28.9 H, RBC 5.53 H, Hgb 16.1 H, Hct 51.5 H, MCV 93.1, MCH 29.1, MCHC 31.3 L, RDW Std Deviation 43.5, RDW Coeff of Kelechi 12.7, Plt Count 446, MPV 10.8, Immature Gran % (Auto) 2.200 H, Neut % (Auto) 78.7 H, Lymph % (Auto) 15.0 L, [place] % (Auto) 3.6, Eos % (Auto) 0.1, Baso % (Auto) 0.4, Absolute Neuts (auto) 22.7 H, Absolute Lymphs (auto) 4.34, Nucleated RBC % 0, Differential Comment SCANNED, Sodium 141, Potassium 3.7, Chloride 99, Carbon Dioxide < 2.0 L*, Anion Gap UNABLE TO CALCULATE L, BUN 22 H, Creatinine 1.29 H, Estim Creat Clear Calc 45.33 L, Est GFR (MDRD) Non-Af 47 L, BUN/Creatinine Ratio 17.2, Glucose 304 H, Calcium 9.8, Total Bilirubin 0.45, AST 31, ALT 70 H, Alkaline Phosphatase 129 H, Total Protein 8.3, Albumin 5.0 H, Globulin 3.3, Albumin/Globulin Ratio 1.5, Lipase 23, b-Hydroxybutyric mmol/L 9.8 10/28/24 18:55: Urine Color Yellow, Urine Clarity Clear, Urine pH 5.0, Ur Specific [place] 1.020, Urine Protein 30 H, Urine Glucose (UA) 1000 H, Urine Ketones 150 A*, Urine Occult Blood 25 H, Urine Nitrite Negative, Urine Bilirubin Negative, Urine Urobilinogen Normal, Ur Leukocyte Esterase Negative, Urine RBC 0 SEEN, Urine WBC 0 SEEN, Ur Squamous Epith Cells 0 SEEN, Urine Bacteria RARE, Urine Mucus 0 SEEN 10/28/24 19:42: Lactic Acid 6.5 H* 10/28/24 23:55: Sodium 145, Potassium 4.8, Chloride 111 H, Carbon Dioxide 4.9 L*, Anion Gap 29 H, BUN 25 H, Creatinine 1.08, Estim Creat Clear Calc 53.90, Est GFR (MDRD) Non-Af 58 L, BUN/Creatinine Ratio 22.8 H, Glucose 313 H, Lactic Acid 3.6 H*, Calcium 7.9, Procalcitonin 0.62 H ABG Data ABG results: ABG 10/28/24 22:01 Specimen Type [place] Sample Site Not entered VBG pH 6.74 L* VBG pO2 174 H VBG Total CO2 < 5 L VBG O2 Sat (Calc) 97 H VBG Base Excess < -30 L POC Mix VBG pCO2 Pt Tmp 25.4 L O2 Delivery Device Room Air Crit Call To/Read Back Yes Blood Gas Notified Whom [place] Blood Gas Notified Time 22:02:56 Imaging Radiology Impression Chest/Abdomen/Pelvis CTA 10/28/24 19:18 IMPRESSION: 1. Patent thoracic and aortoiliac arteries without aneurysm, narrowing or calcification. 2. Indeterminate left adrenal nodule, likely an adenoma. Nonemergent outpatient CT or MRI abdomen (adrenal protocol) is recommended for further evaluation if not recently performed. 3. Diffuse hepatic steatosis. Reading Location: [facility] Assessment and Plan . Assessment and plan: PE: General: Well developed, acutely ill appearing female, lethargic but in no distress HEENT: anicteric Sclera, nl nose; supple neck, no masses Cardiovascular: Tachy; S1/S2; No rubs, gallops; no displaced PM Respiratory: diminished; no crackles, wheezes, or rhonchi Abdominal: Non-tender; Non distended; hypoBS x 4; No Hepatosplenomegaly Extremities: Warm, well perfused; No clubbing, cyanosis; capillary refill < 2 sec Skin: intact, no rashes Neurological: lethargic, A&Ox3, no gross deficits appreciated A/P: #DKA #JACKELIN on CKD #Abd pain/diarrhea #?Sepsis vs SIRS -Cont insulin gtt per protocol; q4h BMPs, q1h CBG -Cont IVF; reviewed/adjusted; monitor & replace lytes particularly K; strict I/Os -SP fluid bolus; source unclear but recently treated for UTI so possibly contributing vs other; CT imaging unrevealing; cont emp IV Abx; F/U Cx -Nutrition consult, diabetic education CCT: 60 min The entirety of this encounter was completed via telemedicine.
[2024-10-29 01:02] LABS: Ketone-Dipstick 150 mg/dl (Negative)
[2024-10-29 01:11] LABS: Red Blood Cells-Urine 10-25 SEEN /hpf (0-5)
[2024-10-29 01:12] LABS: Bacteria RARE /hpf (None Seen); Hyaline Cast 0-5 SEEN /lpf (0-5)
[2024-10-29 01:25] LABS: Bedside Glucose 287 mg/dL (74-106)
[2024-10-29] MEDS: KCL 20MEQ in D5.45NS 20 MEQ/1,000 ML IV.SOLN. 150 MEQ IV ×2 (01:51→08:00)
[2024-10-29 03:41] LABS: Anion Gap 22 (5-15); BUN 24 mg/dL (4-19); Calcium,Total 7.8 mg/dL (7.6-11.0); Carbon Dioxide 8.3 mmol/L (21.0-32.0); Chloride 116 mmol/L (98-108); Creatinine, Serum 1.06 mg/dL (0.70-1.20); EST Glomerular Filtration Rate 59 (>60); Estimated Creatinine Clearance 54.92 ml/min (50-250); Glucose 202 mg/dL (70-99); Potassium 4.6 mmol/L (3.3-5.1); Sodium Level 146 mmol/L (133-145)
[2024-10-29] MEDS: 0.9% Normal Saline (500mL Bag) 500 ML 999 ML IV (05:30)
[2024-10-29] MEDS: Piperacil/Tazobactam 3.375 GM in 0.9% Normal Saline (50mL MB+) 50 ML IV ×3 (06:02→23:20)
[2024-10-29] MEDS: 0.9% Saline Lock 10 ML Syringe IV ×2 (06:06→14:05)
[2024-10-29 06:26] LABS: Absolute Lymphocyte Count 1.93 X10^3/uL (0.83-4.51); Absolute Neutrophil Count 20.6 X10^3/uL (2.0-7.7); Basophil# 0.04 X10^3/uL; Basophil% 0.2 % (0-1); Hematocrit 39.3 % (37-47); Hemoglobin 12.7 g/dL (12.0-15.0); Lymphocyte # 1.93 X10^3/ul (0.83-4.51); Lymphocyte % 7.9 % (19-41); Mean Corp Hgb Conc 32.3 g/dL (32-36); Mean Corpuscular Hgb 29.1 pg (27.0-32.0); Mean Corpuscular Volume 90.1 fL (81-99); Mean Platelet Vol. 10.3 fl (6.2-12.0); Monocyte# 1.65 X10^3/uL; Monocyte% 6.7 % (0-10); NRBC Flagged by Analyzer 0 % (0-5); Neutrophil # 20.62 X10^3/uL (2.7-7.7); Neutrophil % 84.1 % (47-70); POSITIVE DIFFERENTIAL YES; Platelet Count 351 K/mm3 (150-450); RBC Distribution Width CV 12.9 % (11.6-14.6); RBC Distribution Width SD 42.8 fl (35.1-43.9); Red Blood Count 4.36 M/mm3 (4.2-5.4); White Blood Count 24.5 K/mm3 (4.4-11.0)
[2024-10-29 06:32] LABS: Differential Indicated SCAN CRITERIA MET
[2024-10-29] MEDS: Carvedilol 3.125 MG TABLET PO (06:33)
[2024-10-29 06:46] LABS: Anion Gap 15 (5-15); BUN 23 mg/dL (4-19); BUN/Creat Ratio 20.4 RATIO (10-20); Carbon Dioxide 12.4 mmol/L (21.0-32.0); Chloride 121 mmol/L (98-108); Creatinine, Serum 1.12 mg/dL (0.70-1.20); EST Glomerular Filtration Rate 56 (>60); Estimated Creatinine Clearance 51.98 ml/min (50-250); Glucose 160 mg/dL (70-99); Phosphorus 2.1 mg/dL (2.7-4.5); Potassium 4.6 mmol/L (3.3-5.1); Sodium Level 148 mmol/L (133-145)
[2024-10-29 07:23] LABS: Hemoglobin A1c 9.2 % (<=5.6)
[2024-10-29] MEDS: Verapamil SR 180 MG CAPSULE PO (07:55)
[2024-10-29] MEDS: Citalopram 20 MG Tablet PO (07:55)
[2024-10-29] MEDS: Fludrocortisone Acetate 0.1 MG Tablet PO (07:55)
[2024-10-29 08:10] LABS: Bedside Glucose 134 mg/dL (74-106)
[2024-10-29 08:33] LABS: Platelet Estimate ADEQUATE (ADEQ)
[2024-10-29] MEDS: Heparin Injection (Vial) 5,000 UNIT/ML VIAL 5000 UNIT SC ×2 (10:13→21:53)
--- NOTE | 2024-10-29 10:30 | CASEMGMT ---
REZA BOOTH Assessment: Face to Face with pt for initial transition planning/care coordination assessment. REZA BOOTH introduced self and role at [facility], pt voices understanding and consents to assessment. Pt is A&O x4 and answers all questions appropriately at this time. Pt lying in bed in no distress, daughter sitting at bedside. Care providers, pharmacy, and demographics verified/updated. Strata: 2 Admitting Dx: ABD pain PCP: Lorna Specialists: , Historical Records Administrator Preferred Pharmacy: [facility] [employer] [place] Insurance: [employer] Prescription Benefit: yes LNOK: Daughter, Jennie; JOHNSON, Camila Living Arrangements: Pt lives alone in an apartment with zero stairs to enter. ADLs: Pt reports I at baseline Transportation: Pt drives self and denies concerns with transportation. DME: [facility], glucometer and supplies. HHC/SNF: Denies Hx of. Pt states no concerns with going home at time of dc. Pt states no further concerns/needs. CM to follow. Advised pt to ask CM if any further question/concerns/needs arise, voices understanding. Pt Goal: Home Plan: Home, follow for safe DC plan. Radha COBB CM
[2024-10-29 10:32] LABS: Bedside Glucose 120 mg/dL (74-106)
[2024-10-29] MEDS: Vancomycin IV 500 MG/100 ML BAG 100 MG IV ×2 (10:40→21:54)
--- NOTE | 2024-10-29 11:36 | PCM.PN.HOSP ---
Reason for Visit Reason for Visit: Diagnoses Type 2 diabetes mellitus with ketoacidosis without coma (10/28/24) Nausea with vomiting, unspecified (10/28/24) Diarrhea, unspecified (10/28/24) Subjective Subjective Saw patient at bedside this morning, daughter present. Patient had good energy level and was sitting back comfortably in bed, conversing normally and in no acute distress. She stated that her abdominal pain and nausea was essentially gone today. She was feeling very hungry and hoping to eat lunch today. She denied any fevers or chills. No other acute concerns this morning. Objective Data Objective Data Vital Signs: Vital Signs Temp Pulse Resp BP Pulse Ox O2 Del Method 98.3 F 112 H 15 108/57 L 92 Room Air 10/29/24 11:00 10/29/24 11:00 10/29/24 11:00 10/29/24 11:00 10/29/24 11:00 10/29/24 11:00 Oxygen Delivery Method Room Air Weight: 76 kg Body Mass Index (BMI) 28.5 Intake & Output: Intake and Output for Last 24 Hours 10/27/24 10/28/24 10/29/24 23:59 23:59 23:59 Intake Total 2415.85 / 2415.85 2533.25 / 2533.25 Output Total 2675 / 2675 Balance 2415.85 / 865.85 -141.75 / -141.75 Lab / Micro Data 10/29/24 06:10 10/29/24 10:46 Labs: Laboratory Results - last 24 hr 10/28/24 00:40: Urine Color Straw, Urine Clarity Clear, Urine pH 5.0, Ur Specific [place] 1.020, Urine Protein 30 H, Urine Glucose (UA) 1000 H, Urine Ketones 150 A*, Urine Occult Blood 50 H, Urine Nitrite Negative, Urine Bilirubin Negative, Urine Urobilinogen Normal, Ur Leukocyte Esterase Negative, Urine RBC 10-25 SEEN, Urine WBC 0 SEEN, Ur Squamous Epith Cells 0 SEEN, Urine Bacteria RARE, Hyaline Casts 0-5 SEEN, Urine Mucus 0 SEEN 10/28/24 17:15: POC Glucose 316 H 10/28/24 17:21: WBC 28.9 H, RBC 5.53 H, Hgb 16.1 H, Hct 51.5 H, MCV 93.1, MCH 29.1, MCHC 31.3 L, RDW Std Deviation 43.5, RDW Coeff of Kelechi 12.7, Plt Count 446, MPV 10.8, Immature Gran % (Auto) 2.200 H, Neut % (Auto) 78.7 H, Lymph % (Auto) 15.0 L, [place] % (Auto) 3.6, Eos % (Auto) 0.1, Baso % (Auto) 0.4, Absolute Neuts (auto) 22.7 H, Absolute Lymphs (auto) 4.34, Nucleated RBC % 0, Differential Comment SCANNED, Sodium 141, Potassium 3.7, Chloride 99, Carbon Dioxide < 2.0 L*, Anion Gap UNABLE TO CALCULATE L, BUN 22 H, Creatinine 1.29 H, Estim Creat Clear Calc 45.33 L, Est GFR (MDRD) Non-Af 47 L, BUN/Creatinine Ratio 17.2, Glucose 304 H, Calcium 9.8, Total Bilirubin 0.45, AST 31, ALT 70 H, Alkaline Phosphatase 129 H, Total Protein 8.3, Albumin 5.0 H, Globulin 3.3, Albumin/Globulin Ratio 1.5, Lipase 23, b-Hydroxybutyric mmol/L 9.8 10/28/24 18:55: Urine Color Yellow, Urine Clarity Clear, Urine pH 5.0, Ur Specific [place] 1.020, Urine Protein 30 H, Urine Glucose (UA) 1000 H, Urine Ketones 150 A*, Urine Occult Blood 25 H, Urine Nitrite Negative, Urine Bilirubin Negative, Urine Urobilinogen Normal, Ur Leukocyte Esterase Negative, Urine RBC 0 SEEN, Urine WBC 0 SEEN, Ur Squamous Epith Cells 0 SEEN, Urine Bacteria RARE, Urine Mucus 0 SEEN 10/28/24 19:42: Lactic Acid 6.5 H* 10/28/24 23:55: Sodium 145, Potassium 4.8, Chloride 111 H, Carbon Dioxide 4.9 L*, Anion Gap 29 H, BUN 25 H, Creatinine 1.08, Estim Creat Clear Calc 53.90, Est GFR (MDRD) Non-Af 58 L, BUN/Creatinine Ratio 22.8 H, Glucose 313 H, Lactic Acid 3.6 H*, Calcium 7.9, Procalcitonin 0.62 H 10/28/24 23:58: POC Glucose 287 H 10/29/24 03:00: Sodium 146 H, Potassium 4.6, Chloride 116 H, Carbon Dioxide 8.3 L*, Anion Gap 22 H, BUN 24 H, Creatinine 1.06, Estim Creat Clear Calc 54.92, Est GFR (MDRD) Non-Af 59 L, BUN/Creatinine Ratio 23.0 H, Glucose 202 H, Calcium 7.8 10/29/24 06:10: WBC 24.5 H, RBC 4.36, Hgb 12.7, Hct 39.3, MCV 90.1, MCH 29.1, MCHC 32.3, RDW Std Deviation 42.8, RDW Coeff of Kelechi 12.9, Plt Count 351, MPV 10.3, Immature Gran % (Auto) 1.100 H, Neut % (Auto) 84.1 H, Lymph % (Auto) 7.9 L, [place] % (Auto) 6.7, Eos % (Auto) 0.0, Baso % (Auto) 0.2, Absolute Neuts (auto) 20.6 H, Absolute Lymphs (auto) 1.93, Nucleated RBC % 0, Diff Path Review November, Platelet Estimate ADEQUATE, Sodium 148 H, Potassium 4.6, Chloride 121 H, Carbon Dioxide 12.4 L, Anion Gap 15, BUN 23 H, Creatinine 1.12, Estim Creat Clear Calc 51.98, Est GFR (MDRD) Non-Af 56 L, BUN/Creatinine Ratio 20.4 H, Glucose 160 H, Hemoglobin A1c 9.2, Calcium 8.0, Phosphorus 2.1 L, Magnesium 2.0 10/29/24 07:52: POC Glucose 134 H 10/29/24 10:11: POC Glucose 120 H Micro: Microbiology 10/28/24 23:45 Nasal Secretion MRSA (PCR) - Final ABG Data ABG results: ABG 10/28/24 22:01 Specimen Type [place] Sample Site Not entered VBG pH 6.74 L* VBG pO2 174 H VBG Total CO2 < 5 L VBG O2 Sat (Calc) 97 H VBG Base Excess < -30 L POC Mix VBG pCO2 Pt Tmp 25.4 L O2 Delivery Device Room Air Crit Call To/Read Back Yes Blood Gas Notified Whom [place] Blood Gas Notified Time 22:02:56 Radiography Diagnostic Testing: Radiology Impression Chest/Abdomen/Pelvis CTA 10/28/24 19:18 IMPRESSION: 1. Patent thoracic and aortoiliac arteries without aneurysm, narrowing or calcification. 2. Indeterminate left adrenal nodule, likely an adenoma. Nonemergent outpatient CT or MRI abdomen (adrenal protocol) is recommended for further evaluation if not recently performed. 3. Diffuse hepatic steatosis. Reading Location: [facility] Physical Exam Const alert, oriented x3, no apparent distress and average body habitus Constitutional Narrative: Upper middle-aged female, overweight, good energy level today, sitting back comfortably in bed, conversing normally, in no acute distress. General Appearance: cooperative and comfortable HEENT normocephalic, head/scalp atraumatic, hearing grossly normal bilaterally, nasal mucous membranes and turbinates normal and moist oral mucous membranes Eyes PERRL, EOMs intact bilaterally and conjunctivae normal Neck full ROM Chest inspection of chest normal Resp normal respiratory effort, normal air movement, no use of accessory muscles and clear to auscultation bilaterally Cardio no murmurs and peripheral pulses 2+ throughout Cardio Narrative: Tachycardic, regular rhythm. GI normal to inspection, nondistended, normoactive bowel sounds, soft to palpation, non-tender and non-distended Back/Spine normal ROM Extremity normal to inspection, full ROM and no pedal edema Skin no rashes or lesions noted Psych mental status grossly normal Assessment & Plan Assessment/Plan (1) Diabetic ketoacidosis: PLAN: Plan Patient is a 63-year-old female who presented to [facility] ED on 10/29/2024 with abdominal pain and nausea with vomiting. 1. DKA in setting of type 2 diabetes mellitus ? Highest concern is for euglycemic DKA given patient's presentation. Follows with Dr. Siddiqui. Home regimen of empagliflozin, glimepiride, metformin, and Trulicity. Last A1c 7.0% in February, worsened to 9.2% on this admission. Patient notably was off her home medications for recent colonoscopy. Blood sugar 420 on admit but ABG with pH 6.74, bicarb less than 2 on BMP and beta-hydroxybutyrate 9.8. Started on insulin drip with DKA protocol on admission and anion gap closed on 10/29 and patient felt hungry. Transitioned to Lantus 10 units at night and Humalog 3 units with meals plus sliding scale for now, will adjust as needed. Hopeful that patient will be able to resume home regimen on discharge, except that empagliflozin will be discontinued. Will then allow Dr. Siddiqui to make further adjustments to regimen in the outpatient setting. 2. Concern for infection of unclear source ? Met SIRS criteria on admit with WBC count 28, lactate 3.6, tachycardia and hypothermia. Procalcitonin elevated at 0.6. No clear source of infection at this time. Will continue to treat with IV vancomycin and Zosyn for now. Follow-up blood cultures. Suspect her presentation may have all been secondary to stress state from severe DKA but will make further determination on course of antibiotics prior to discharge. 3. JACKELIN, resolving ? Creatinine 1.2 on admit, baseline around 0.8. Improved to 1.0 by hospital day 2 with IV fluid resuscitation, continue to monitor daily BMP and urine output. Chronic medical conditions: ? Hypertension: Continue home Coreg. ? Hyperlipidemia: Continue home statin. ? Depression: Continue home citalopram. ? Restless leg syndrome: Continue home ropinirole. ? Postural hypotension: Continue home fludrocortisone. DVT prophylaxis: Lovenox CODE STATUS: Full code, verified Expected disposition: Home, 1 to 2 days Total clinical time spent by myself addressing the patient's medical issues, reviewing all the data, and collaborating with patient's care team: 35 minutes. Charges/Coding Visit Charges Inpatient E&M: 41146 Subs Hosp L2
[2024-10-29 11:45] LABS: Anion Gap 11 (5-15); BUN 20 mg/dL (4-19); BUN/Creat Ratio 19.9 RATIO (10-20); Calcium,Total 7.9 mg/dL (7.6-11.0); Carbon Dioxide 14.2 mmol/L (21.0-32.0); Chloride 120 mmol/L (98-108); Creatinine, Serum 1.01 mg/dL (0.70-1.20); EST Glomerular Filtration Rate 63 (>60); Estimated Creatinine Clearance 57.64 ml/min (50-250); Glucose 141 mg/dL (70-99); Sodium Level 145 mmol/L (133-145)
[2024-10-29 12:38] LABS: Bedside Glucose 167 mg/dL (74-106)
[2024-10-29 12:38] LABS: Bedside Glucose 181 mg/dL (74-106)
[2024-10-29 12:38] LABS: Bedside Glucose 207 mg/dL (74-106)
[2024-10-29 12:38] LABS: Bedside Glucose 187 mg/dL (74-106)
[2024-10-29 12:38] LABS: Bedside Glucose 153 mg/dL (74-106)
[2024-10-29] MEDS: Ondansetron 4 MG/2 ML Vial IV (14:05)
[2024-10-29] MEDS: Insulin Lispro 100 UNIT/ML INSULN.PEN SC ×2 (16:04→16:05)
[2024-10-29 16:18] LABS: Bedside Glucose 165 mg/dL (74-106)
[2024-10-29 18:45] LABS: Bedside Glucose 137 mg/dL (74-106)
[2024-10-29] MEDS: Insulin Glargine-YFGN 100 UNIT/ML Pen 10 UNIT SC (21:53)
[2024-10-29] MEDS: Pramipexole Di-HCl 0.125 MG Tablet PO (21:54)
[2024-10-30] VITALS (25 sets, daily range): BP systolic 86–118; BP diastolic 48–86; PULSE 78–110; RESP 14–23; TEMP 36.4–37.1; O2SAT 92–99; BMI 29.5
[2024-10-30 00:21] LABS: Bedside Glucose 125 mg/dL (74-106)
[2024-10-30 04:06] LABS: Hematocrit 35.9 % (37-47); Hemoglobin 11.4 g/dL (12.0-15.0); Mean Corp Hgb Conc 31.8 g/dL (32-36); Mean Corpuscular Hgb 28.5 pg (27.0-32.0); Mean Corpuscular Volume 89.8 fL (81-99); Mean Platelet Vol. 10.2 fl (6.2-12.0); Platelet Count 314 K/mm3 (150-450); RBC Distribution Width CV 13.9 % (11.6-14.6); RBC Distribution Width SD 45.3 fl (35.1-43.9)
[2024-10-30 04:21] LABS: Anion Gap 18 (5-15); BUN 19 mg/dL (4-19); BUN/Creat Ratio 19.4 RATIO (10-20); Calcium,Total 8.9 mg/dL (7.6-11.0); Carbon Dioxide 11.5 mmol/L (21.0-32.0); Chloride 111 mmol/L (98-108); Creatinine, Serum 0.98 mg/dL (0.70-1.20); EST Glomerular Filtration Rate 66 (>60); Glucose 183 mg/dL (70-99); Potassium 4.2 mmol/L (3.3-5.1); Sodium Level 140 mmol/L (133-145)
[2024-10-30] MEDS: Piperacil/Tazobactam 3.375 GM in 0.9% Normal Saline (50mL MB+) 50 ML IV ×3 (05:22→21:42)
[2024-10-30] MEDS: Insulin Lispro 100 UNIT/ML INSULN.PEN SC (07:35)
--- NOTE | 2024-10-30 07:52 | NURSING ---
Per Dr. Edmonds increase Propofol to 50mcg/kg/min and Fentanyl to 200mcg/hr.
[2024-10-30 07:55] LABS: Bedside Glucose 149 mg/dL (74-106)
--- NOTE | 2024-10-30 09:15 | PN.CC_ITS ---
Assessment & Plan Assessment/Plan (1) Diabetic ketoacidosis: PLAN: Plan RECOMMENDATIONS: 1. Continue basal and sliding scale insulin coverage. 2. Recheck beta hydroxybutyrate level. 3. Repeat BMP this afternoon to follow-up on anion gap. 4. Antibiotics can be discontinued from my perspective. 5. Continue appropriate DVT prophylaxis. IMPRESSIONS: 1. Diabetic ketoacidosis Appears resolved at the present time. The patient has been transition to basal and sliding scale insulin coverage. Although her anion gap appears again elevated this morning, it is unclear if this is an error related to bicarbonate and chloride measurement. Accordingly, we will plan to check a beta hydroxybutyrate level. I agree with repeating her BMP this afternoon. For now, continue current supportive care. Although there were initial concerns for sepsis at presentation, no definitive source of infection has been identified. I suspect her presenting laboratory and vital sign abnormalities are likely related to her DKA. Blood cultures have not demonstrated any growth to date. Antibiotics can be discontinued from my perspective. 2. Acute kidney injury Resolved. Secondary to prerenal etiology in the setting of DKA. 3. History of hypertension/hyperlipidemia/chronic hypotension on Florinef/depression Complicates care, management, recovery and prognosis. Continue home medications as indicated. This note was generated with [employer] dictation software. It may contain incorrect words, spelling, and punctuation that were not noted in checking the note before signing. Subjective Subjective The patient was seen and examined at the bedside this morning. Events from the last 24 hours have been reviewed. The patient is currently afebrile, hemodynamically stable and maintaining appropriate oxygen saturations on room air. The patient's anion gap improved and she was transition to basal and sliding scale insulin coverage. White blood cell count is elevated at 19,000. Anion gap is again elevated at 18. Creatinine is within normal limits. The patient denied the presence of a cough or shortness of breath. Objective Data Objective Data The patient's most recent lab work, culture data and imaging studies have all been personally reviewed. Blood cultures have not demonstrated any growth to date. Vital Signs: Vital Signs Temp Pulse Resp BP Pulse Ox O2 Del Method 98.2 F 95 18 110/62 94 Room Air 10/30/24 08:00 10/30/24 08:00 10/30/24 08:00 10/30/24 08:00 10/30/24 08:00 10/30/24 08:00 Oxygen Delivery Method Room Air Weight: 171 lb 11.841 oz Body Mass Index (BMI) 29.5 Intake & Output: Intake and Output for Last 24 Hours 10/28/24 10/29/24 10/30/24 23:59 23:59 23:59 Intake Total 2415.85 / 2415.85 4442.83 / 4442.83 50 Output Total 2975 / 2975 Balance 2415.85 / 865.85 1467.83 / 1467.83 Lab / Micro Data Attestation: I reviewed the patient's lab results. 10/30/24 03:50 10/30/24 03:50 Labs: Laboratory Results - last 24 hr 10/29/24 01:09: POC Glucose 207 H 10/29/24 02:10: POC Glucose 181 H 10/29/24 03:04: POC Glucose 187 H 10/29/24 04:07: POC Glucose 167 H 10/29/24 06:13: POC Glucose 153 H 10/29/24 10:11: POC Glucose 120 H 10/29/24 10:46: Sodium 145, Potassium 4.0, Chloride 120 H, Carbon Dioxide 14.2 L , Anion Gap 11, BUN 20 H, Creatinine 1.01, Estim Creat Clear Calc 57.64, Est GFR (MDRD) Non-Af 63, BUN/Creatinine Ratio 19.9, Glucose 141 H, Calcium 7.9 10/29/24 12:20: POC Glucose 137 H 10/29/24 16:01: POC Glucose 165 H 10/29/24 21:44: POC Glucose 125 H 10/30/24 03:50: WBC 19.0 H, RBC 4.00 L, Hgb 11.4 L, Hct 35.9 L, MCV 89.8, MCH 28.5, MCHC 31.8 L, RDW Std Deviation 45.3 H, RDW Coeff of Kelechi 13.9, Plt Count 314, MPV 10.2, Sodium 140, Potassium 4.2, Chloride 111 H, Carbon Dioxide 11.5 L, Anion Gap 18 H, BUN 19, Creatinine 0.98, Estim Creat Clear Calc 59.40, Est GFR (MDRD) Non-Af 66, BUN/Creatinine Ratio 19.4, Glucose 183 H, Calcium 8.9 10/30/24 07:34: POC Glucose 149 H Micro: Microbiology 10/28/24 23:45 Nasal Secretion MRSA (PCR) - Final Physical Exam Const alert, oriented x3 and no apparent distress General Appearance: cooperative HEENT normocephalic and head/scalp atraumatic Eyes PERRL, EOMs intact bilaterally and conjunctivae normal Neck supple General: trachea midline Chest inspection of chest normal Resp normal respiratory effort Auscultation: Negative for rales, rhonchi or wheezes Cardio regular rate and regular rhythm GI normal to inspection, nondistended, normoactive bowel sounds Extremity no clubbing, cyanosis or edema Skin no rashes or lesions noted Neuro CN's II-XII intact bilaterally, moves all extremities and no focal motor deficits Psych Mood & Affect: flat affect Charges/Coding Visit Charges Inpatient E&M: 67053 Subs Hosp L2
--- NOTE | 2024-10-30 09:17 | PN.HOSP_ITS ---
Reason for Visit Reason for Visit: Diagnoses Type 2 diabetes mellitus with ketoacidosis without coma (10/28/24) Nausea with vomiting, unspecified (10/28/24) Diarrhea, unspecified (10/28/24) Subjective Subjective Saw patient at bedside this morning. Patient was more fatigued appearing this morning than yesterday. After she was transitioned off the insulin drip yesterday she tried to eat some lunch but unfortunately vomited. She was able to keep down some food yesterday afternoon and evening but not much. This morning she does deny any abdominal pain or nausea. Notably, her anion gap appears to have opened up slightly and a beta-hydroxybutyrate level has been sent. Will continue current management and follow-up that lab. Patient denies any other new concerns this morning. Objective Data Objective Data Vital Signs: Vital Signs Temp Pulse Resp BP Pulse Ox O2 Del Method 98.2 F 95 18 110/62 94 Room Air 10/30/24 08:00 10/30/24 08:00 10/30/24 08:00 10/30/24 08:00 10/30/24 08:00 10/30/24 08:00 Oxygen Delivery Method Room Air Weight: 77.9 kg Body Mass Index (BMI) 29.5 Intake & Output: Intake and Output for Last 24 Hours 10/28/24 10/29/24 10/30/24 23:59 23:59 23:59 Intake Total 2415.85 / 2415.85 4442.83 / 4442.83 50 / 50 Output Total 2975 / 2975 Balance 2415.85 / 865.85 1467.83 / 1467.83 50 / 50 Lab / Micro Data 10/30/24 03:50 10/30/24 03:50 Labs: Laboratory Results - last 24 hr 10/29/24 01:09: POC Glucose 207 H 10/29/24 02:10: POC Glucose 181 H 10/29/24 03:04: POC Glucose 187 H 10/29/24 04:07: POC Glucose 167 H 10/29/24 06:13: POC Glucose 153 H 10/29/24 10:11: POC Glucose 120 H 10/29/24 10:46: Sodium 145, Potassium 4.0, Chloride 120 H, Carbon Dioxide 14.2 L , Anion Gap 11, BUN 20 H, Creatinine 1.01, Estim Creat Clear Calc 57.64, Est GFR (MDRD) Non-Af 63, BUN/Creatinine Ratio 19.9, Glucose 141 H, Calcium 7.9 10/29/24 12:20: POC Glucose 137 H 10/29/24 16:01: POC Glucose 165 H 10/29/24 21:44: POC Glucose 125 H 10/30/24 03:50: WBC 19.0 H, RBC 4.00 L, Hgb 11.4 L, Hct 35.9 L, MCV 89.8, MCH 28.5, MCHC 31.8 L, RDW Std Deviation 45.3 H, RDW Coeff of Kelechi 13.9, Plt Count 314, MPV 10.2, Sodium 140, Potassium 4.2, Chloride 111 H, Carbon Dioxide 11.5 L, Anion Gap 18 H, BUN 19, Creatinine 0.98, Estim Creat Clear Calc 59.40, Est GFR (MDRD) Non-Af 66, BUN/Creatinine Ratio 19.4, Glucose 183 H, Calcium 8.9 10/30/24 07:34: POC Glucose 149 H Micro: Microbiology 10/28/24 23:45 Nasal Secretion MRSA (PCR) - Final Physical Exam Const alert, oriented x3, no apparent distress and average body habitus Constitutional Narrative: Upper middle-aged female, overweight, mild to moderately fatigued today, otherwise sitting back comfortably in bed, conversing normally, in no acute distress. General Appearance: cooperative and comfortable HEENT normocephalic, head/scalp atraumatic, hearing grossly normal bilaterally, nasal mucous membranes and turbinates normal and moist oral mucous membranes Eyes PERRL, EOMs intact bilaterally and conjunctivae normal Neck full ROM Chest inspection of chest normal Resp normal respiratory effort, normal air movement, no use of accessory muscles and clear to auscultation bilaterally Cardio no murmurs and peripheral pulses 2+ throughout Cardio Narrative: Tachycardic, regular rhythm. GI normal to inspection, nondistended, normoactive bowel sounds, soft to palpation, non-tender and non-distended Back/Spine normal ROM Extremity normal to inspection, full ROM and no pedal edema Skin no rashes or lesions noted Psych mental status grossly normal Psych Narrative: Flat affect. Assessment & Plan Assessment/Plan (1) Diabetic ketoacidosis: PLAN: Plan Patient is a 63-year-old female who presented to [facility] ED on 10/29/2024 with abdominal pain and nausea with vomiting. 1. DKA in setting of type 2 diabetes mellitus ? Highest concern is for euglycemic DKA given patient's presentation. Follows with Dr. Siddiqui. Home regimen of empagliflozin, glimepiride, metformin, and Trulicity. Last A1c 7.0% in February, worsened to 9.2% on this admission. Patient notably was off her home medications for recent colonoscopy. Blood sugar 420 on admit but ABG with pH 6.74, bicarb less than 2 on BMP and beta- hydroxybutyrate 9.8. Started on insulin drip with DKA protocol on admission and anion gap closed on 10/29 and patient felt hungry. Transitioned to Lantus 10 units at night and Humalog 3 units with meals plus sliding scale. Patient unfortunately has not eaten much and appears fatigued, though she denies pain and nausea. Anion gap has slightly worsened on 10/30; beta-hydroxybutyrate sent for further evaluation. Will continue current management for now but if beta- hydroxybutyrate has worsened, may need to go back on the insulin drip. Plan on discharge will likely be to resume home regimen minus empagliflozin and allow Dr. Siddiqui to make further adjustments to regimen in the outpatient setting. 2. Concern for infection of unclear source ? Met SIRS criteria on admit with WBC count 28, lactate 3.6, tachycardia and hypothermia. Procalcitonin elevated at 0.6. No clear source of infection at this time. WBC count improving, most recent 18 on 10/30. Initially treated with IV vancomycin and Zosyn, vancomycin discontinued on 10/30. Blood cultures negative to this point and infectious workup otherwise benign. Will continue Zosyn for now but suspect her presentation may all be secondary to stress state from severe DKA. 3. JACKELIN, resolved ? Creatinine 1.2 on admit, baseline around 0.8-0.9. Improved back to baseline by hospital day 3 after IV fluid resuscitation. Monitoring daily BMP as noted above. Chronic medical conditions: ? Hypertension: Continue home Coreg. ? Hyperlipidemia: Continue home statin. ? Depression: Continue home citalopram. ? Restless leg syndrome: Continue home ropinirole. ? Postural hypotension: Continue home fludrocortisone. DVT prophylaxis: Lovenox CODE STATUS: Full code, verified Expected disposition: Home, 1 to 2 days Total clinical time spent by myself addressing the patient's medical issues, reviewing all the data, and collaborating with patient's care team: 35 minutes. Charges/Coding Visit Charges Inpatient E&M: 87390 Subs Hosp L2
[2024-10-30] MEDS: Citalopram 20 MG Tablet PO (09:59)
[2024-10-30] MEDS: Fludrocortisone Acetate 0.1 MG Tablet PO (09:59)
[2024-10-30] MEDS: Heparin Injection (Vial) 5,000 UNIT/ML VIAL 5000 UNIT SC ×2 (09:59→21:44)
[2024-10-30] MEDS: Pantoprazole Sodium 40 MG in 0.9% Normal Saline (100mL MB+) 100 ML 330 MG IV ×2 (09:59→21:40)
[2024-10-30] MEDS: Saliva Substitute 237 ML BOTTLE 15 ML MUCOUS MEM (10:41)
[2024-10-30 11:40] LABS: Bedside Glucose 129 mg/dL (74-106)
[2024-10-30 11:51] LABS: BETA-HYDROXYBUTYRATE 5.6 mmol/L (0.0-0.3)
[2024-10-30] MEDS: Insulin Lispro 100 UNIT in 0.9% Normal Saline (100mL Bag) 99 ML 7.8 UNIT CONT INF (13:27)
[2024-10-30 13:52] LABS: Bedside Glucose 132 mg/dL (74-106)
[2024-10-30 14:50] LABS: Bedside Glucose 97 mg/dL (74-106)
[2024-10-30] MEDS: KCL 20MEQ in D5.45NS 20 MEQ/1,000 ML IV.SOLN. 125 MEQ IV ×2 (15:03→22:59)
[2024-10-30] MEDS: Acetaminophen 325 MG Tablet 650 MG PO (15:39)
[2024-10-30 15:54] LABS: Bedside Glucose 73 mg/dL (74-106)
[2024-10-30] MEDS: Dextrose 10%-Water 250 ML 999 ML IV ×3 (16:50→22:53)
[2024-10-30 16:51] LABS: Anion Gap 16 (5-15); BUN 21 mg/dL (4-19); BUN/Creat Ratio 21.3 RATIO (10-20); Calcium,Total 8.9 mg/dL (7.6-11.0); Carbon Dioxide 12.7 mmol/L (21.0-32.0); Chloride 110 mmol/L (98-108); Creatinine, Serum 0.97 mg/dL (0.70-1.20); EST Glomerular Filtration Rate 66 (>60); Estimated Creatinine Clearance 60.74 ml/min (50-250); Glucose 70 mg/dL (70-99); Potassium 3.4 mmol/L (3.3-5.1); Sodium Level 138 mmol/L (133-145)
[2024-10-30 16:57] LABS: Bedside Glucose 62 mg/dL (74-106)
[2024-10-30 17:40] LABS: Bedside Glucose 127 mg/dL (74-106)
[2024-10-30 18:47] LABS: Bedside Glucose 103 mg/dL (74-106)
[2024-10-30 19:55] LABS: Bedside Glucose 70 mg/dL (74-106)
[2024-10-30] MEDS: 0.9% Saline Lock 10 ML Syringe IV (20:38)
[2024-10-30 21:39] LABS: Anion Gap 8 (5-15); BUN 18 mg/dL (4-19); BUN/Creat Ratio 20.3 RATIO (10-20); Calcium,Total 8.7 mg/dL (7.6-11.0); Carbon Dioxide 18.7 mmol/L (21.0-32.0); Chloride 111 mmol/L (98-108); Creatinine, Serum 0.87 mg/dL (0.70-1.20); EST Glomerular Filtration Rate 75 (>60); Estimated Creatinine Clearance 67.72 ml/min (50-250); Glucose 78 mg/dL (70-99); Potassium 3.3 mmol/L (3.3-5.1); Sodium Level 138 mmol/L (133-145)
[2024-10-30] MEDS: Atorvastatin Calcium 80 MG Tablet PO (21:45)
[2024-10-30] MEDS: Pramipexole Di-HCl 0.125 MG Tablet PO (21:45)
[2024-10-30 23:38] LABS: Bedside Glucose 82 mg/dL (74-106)
[2024-10-30 23:38] LABS: Bedside Glucose 63 mg/dL (74-106)
[2024-10-30 23:38] LABS: Bedside Glucose 54 mg/dL (74-106)
[2024-10-30 23:38] LABS: Bedside Glucose 77 mg/dL (74-106)
[2024-10-30 23:38] LABS: Bedside Glucose 89 mg/dL (74-106)
[2024-10-31] VITALS (25 sets, daily range): BP systolic 90–142; BP diastolic 54–101; PULSE 75–89; RESP 13–19; TEMP 36.1–36.8; O2SAT 92–100; BMI 29.6
[2024-10-31] MEDS: Dextrose 10%-Water 250 ML 999 ML IV ×4 (00:09→07:49)
[2024-10-31 00:22] LABS: Bedside Glucose 44 mg/dL (74-106)
[2024-10-31 00:50] LABS: Bedside Glucose 155 mg/dL (74-106)
[2024-10-31] MEDS: 0.9% Saline Lock 10 ML Syringe IV ×2 (01:33→23:19)
[2024-10-31] MEDS: Insulin Lispro 100 UNIT in 0.9% Normal Saline (100mL Bag) 99 ML 7.8 UNIT CONT INF (01:36)
[2024-10-31 01:59] LABS: Bedside Glucose 72 mg/dL (74-106)
[2024-10-31 01:59] LABS: Bedside Glucose 44 mg/dL (74-106)
[2024-10-31 02:31] LABS: Anion Gap 10 (5-15); BUN 15 mg/dL (4-19); BUN/Creat Ratio 17.6 RATIO (10-20); Calcium,Total 8.9 mg/dL (7.6-11.0); Chloride 114 mmol/L (98-108); Creatinine, Serum 0.84 mg/dL (0.70-1.20); EST Glomerular Filtration Rate 79 (>60); Estimated Creatinine Clearance 70.14 ml/min (50-250); Glucose 79 mg/dL (70-99); Potassium 3.3 mmol/L (3.3-5.1); Sodium Level 141 mmol/L (133-145)
[2024-10-31 03:24] LABS: Bedside Glucose 41 mg/dL (74-106)
--- NOTE | 2024-10-31 03:29 | NURSING ---
Addendum entered by [place] Park 10/31/24 04:36: This RN shaina the patient scheduled Q4H BMP at 0000 on 10/31/24. Around 0115 lab called the unit to inform this RN there was an incident in lab while the sample was being spun resulting in a redraw. This RN redrew the BMP at 0135 on 10/31/24. This RN will resume the original BMP Q4H schedule. Original Note: This RN shaina the patient scheduled Q4H BNP at 0000 on 10/31/24. Around 0115 lab called the unit to inform this RN there was an incident in lab while the sample was being spun resulting in a redraw. This RN redrew the BNP at 0135 on 10/31/24. This RN will resume the original BNP Q4H schedule.
[2024-10-31 04:52] LABS: Hematocrit 31.7 % (37-47); Hemoglobin 10.3 g/dL (12.0-15.0); Mean Corp Hgb Conc 32.5 g/dL (32-36); Mean Corpuscular Hgb 28.7 pg (27.0-32.0); Mean Corpuscular Volume 88.3 fL (81-99); Platelet Count 278 K/mm3 (150-450); RBC Distribution Width CV 13.4 % (11.6-14.6); RBC Distribution Width SD 43.6 fl (35.1-43.9); Red Blood Count 3.59 M/mm3 (4.2-5.4); White Blood Count 9.7 K/mm3 (4.4-11.0)
[2024-10-31 05:10] LABS: Anion Gap 8 (5-15); BUN 14 mg/dL (4-19); BUN/Creat Ratio 17.6 RATIO (10-20); Calcium,Total 8.6 mg/dL (7.6-11.0); Carbon Dioxide 16.8 mmol/L (21.0-32.0); Chloride 116 mmol/L (98-108); Creatinine, Serum 0.79 mg/dL (0.70-1.20); EST Glomerular Filtration Rate 85 (>60); Estimated Creatinine Clearance 74.58 ml/min (50-250); Glucose 58 mg/dL (70-99); Potassium 3.3 mmol/L (3.3-5.1); Sodium Level 141 mmol/L (133-145)
[2024-10-31 05:56] LABS: Bedside Glucose 53 mg/dL (74-106)
[2024-10-31 05:56] LABS: Bedside Glucose 105 mg/dL (74-106)
[2024-10-31 05:56] LABS: Bedside Glucose 68 mg/dL (74-106)
[2024-10-31] MEDS: Piperacil/Tazobactam 3.375 GM in 0.9% Normal Saline (50mL MB+) 50 ML IV ×3 (06:26→22:58)
[2024-10-31] MEDS: KCL 20MEQ in D5.45NS 20 MEQ/1,000 ML IV.SOLN. 125 MEQ IV (06:36)
[2024-10-31 06:42] LABS: VBG Bicarbonate 3 mmol/L (22-26)
[2024-10-31 06:51] LABS: Bedside Glucose 70 mg/dL (74-106)
--- NOTE | 2024-10-31 07:35 | PN.CC_ITS ---
Assessment & Plan Assessment/Plan (1) Diabetic ketoacidosis: PLAN: Plan RECOMMENDATIONS: 1. Repeat beta hydroxybutyrate level is pending. 2. Okay from my perspective to discontinue insulin infusion and transition back to basal and sliding scale coverage. 3. Antibiotics can be discontinued from my perspective. 4. Continue appropriate DVT prophylaxis. 5. Encourage incentive spirometer use and mobilize patient as tolerated. 6. Will sign off from a critical care perspective. Please call with any additional questions. IMPRESSIONS: 1. Diabetic ketoacidosis Appears resolved at the present time. Okay from my perspective to transition from continuous insulin back to basal and sliding scale coverage. For now, continue current supportive care. Although there were initial concerns for sepsis at presentation, no definitive source of infection has been identified. I suspect her presenting laboratory and vital sign abnormalities are likely related to her DKA. Blood cultures have not demonstrated any growth to date. Antibiotics can be discontinued from my perspective. 2. Acute kidney injury Resolved. Secondary to prerenal etiology in the setting of DKA. 3. History of hypertension/hyperlipidemia/chronic hypotension on Florinef/depression Complicates care, management, recovery and prognosis. Continue home medications as indicated. This note was generated with [employer] dictation software. It may contain incorrect words, spelling, and punctuation that were not noted in checking the note before signing. Subjective Subjective The patient was seen and examined at the bedside this morning. Events from the last 24 hours have been reviewed. The patient is currently afebrile, hemodynamically stable and maintaining appropriate oxygen saturations on room air. The patient has no specific complaints this morning. She was placed back on a continuous insulin infusion yesterday after her anion gap was noted to have increased and her beta hydroxybutyrate level was also noted to be elevated. Her anion gap overnight subsequently closed. White blood cell count remains normal. Hemoglobin and platelet count are stable. Creatinine is within normal limits. Objective Data Objective Data The patient's most recent lab work, culture data and imaging studies have all been personally reviewed. Blood cultures have not demonstrated any growth to date. Vital Signs: Vital Signs Temp Pulse Resp BP Pulse Ox O2 Del Method 98 F 80 17 101/64 94 Room Air 10/31/24 06:00 10/31/24 07:00 10/31/24 07:00 10/31/24 07:00 10/31/24 07:00 10/31/24 07:00 Oxygen Delivery Method Room Air Weight: 172 lb 9.951 oz Body Mass Index (BMI) 29.6 Intake & Output: Intake and Output for Last 24 Hours 10/29/24 10/30/24 10/31/24 23:59 23:59 23:59 Intake Total 4442.83 / 4442.83 2190.06 / 2190.06 1809.03 / 1809.03 Output Total 2975 / 2975 0 / 0 Balance 1467.83 / 1467.83 2190.06 / 2190.06 1809.03 / 1809.03 Lab / Micro Data Attestation: I reviewed the patient's lab results. 10/31/24 04:30 10/31/24 08:15 Labs: Laboratory Results - last 24 hr 10/30/24 03:50: b-Hydroxybutyric mmol/L 5.6 10/30/24 07:34: POC Glucose 149 H 10/30/24 11:21: POC Glucose 129 H 10/30/24 13:26: POC Glucose 132 H 10/30/24 14:30: POC Glucose 97 10/30/24 15:35: POC Glucose 73 L 10/30/24 16:08: Sodium 138, Potassium 3.4, Chloride 110 H, Carbon Dioxide 12.7 L , Anion Gap 16 H, BUN 21 H, Creatinine 0.97, Estim Creat Clear Calc 60.74, Est GFR (MDRD) Non-Af 66, BUN/Creatinine Ratio 21.3 H, Glucose 70, Calcium 8.9 10/30/24 16:40: POC Glucose 62 L 10/30/24 17:22: POC Glucose 127 H 10/30/24 18:29: POC Glucose 103 10/30/24 19:30: POC Glucose 70 L 10/30/24 20:30: POC Glucose 54 L 10/30/24 20:40: Sodium 138, Potassium 3.3, Chloride 111 H, Carbon Dioxide 18.7 L , Anion Gap 8, BUN 18, Creatinine 0.87, Estim Creat Clear Calc 67.72, Est GFR (MDRD) Non-Af 75, BUN/Creatinine Ratio 20.3 H, Glucose 78, Calcium 8.7 10/30/24 21:19: POC Glucose 89 10/30/24 21:44: POC Glucose 82 10/30/24 22:46: POC Glucose 63 L 10/30/24 23:20: POC Glucose 77 10/31/24 00:00: Sodium Cancelled, Potassium Cancelled, Chloride Cancelled, Carbon Dioxide Cancelled, Anion Gap Cancelled, BUN Cancelled, Creatinine Cancelled, Estim Creat Clear Calc Cancelled, Est GFR (MDRD) Non-Af Cancelled, BUN/Creatinine Ratio Cancelled, Glucose Cancelled, Calcium Cancelled 10/31/24 00:02: POC Glucose 44 L* 10/31/24 00:06: POC Glucose 44 L* 10/31/24 00:32: POC Glucose 155 H 10/31/24 01:32: POC Glucose 72 L 10/31/24 01:35: Sodium 141, Potassium 3.3, Chloride 114 H, Carbon Dioxide 18.0 L , Anion Gap 10, BUN 15, Creatinine 0.84, Estim Creat Clear Calc 70.14, Est GFR (MDRD) Non-Af 79, BUN/Creatinine Ratio 17.6, Glucose 79, Calcium 8.9 10/31/24 02:32: POC Glucose 41 L* 10/31/24 03:47: POC Glucose 68 L 10/31/24 04:30: WBC 9.7, RBC 3.59 L, Hgb 10.3 L, Hct 31.7 L, MCV 88.3, MCH 28.7, MCHC 32.5, RDW Std Deviation 43.6, RDW Coeff of Kelechi 13.4, Plt Count 278, MPV 10.0, Sodium 141, Potassium 3.3, Chloride 116 H, Carbon Dioxide 16.8 L, Anion Gap 8, BUN 14, Creatinine 0.79, Estim Creat Clear Calc 74.58, Est GFR (MDRD) Non-Af 85, BUN/Creatinine Ratio 17.6, Glucose 58 L, Calcium 8.6 10/31/24 04:42: POC Glucose 53 L 10/31/24 05:35: POC Glucose 105 10/31/24 06:32: POC Glucose 70 L Micro: Microbiology 10/28/24 23:45 Nasal Secretion MRSA (PCR) - Final ABG Data ABG results: ABG 10/28/24 22:01 VBG HCO3 3 L Physical Exam Const alert, oriented x3 and no apparent distress General Appearance: cooperative HEENT normocephalic and head/scalp atraumatic Eyes PERRL, EOMs intact bilaterally and conjunctivae normal Neck supple General: trachea midline Chest inspection of chest normal Resp normal respiratory effort Auscultation: Negative for rales, rhonchi or wheezes Cardio regular rate and regular rhythm GI normal to inspection, nondistended, normoactive bowel sounds Extremity no clubbing, cyanosis or edema Skin no rashes or lesions noted Neuro CN's II-XII intact bilaterally, moves all extremities and no focal motor deficits Psych cooperative and affect normal Charges/Coding Visit Charges Inpatient E&M: 39637 Subs Hosp L2
[2024-10-31 08:12] LABS: Bedside Glucose 62 mg/dL (74-106)
[2024-10-31 08:45] LABS: Anion Gap 8 (5-15); BUN 13 mg/dL (4-19); BUN/Creat Ratio 16.9 RATIO (10-20); Calcium,Total 8.5 mg/dL (7.6-11.0); Carbon Dioxide 18.4 mmol/L (21.0-32.0); Chloride 114 mmol/L (98-108); Creatinine, Serum 0.76 mg/dL (0.70-1.20); EST Glomerular Filtration Rate 88 (>60); Estimated Creatinine Clearance 77.71 ml/min (50-250); Glucose 119 mg/dL (70-99); Magnesium 2.1 mg/dL (1.5-2.2); Potassium 3.3 mmol/L (3.3-5.1); Sodium Level 140 mmol/L (133-145)
[2024-10-31 09:09] LABS: BETA-HYDROXYBUTYRATE 0.1 mmol/L (0.0-0.3)
[2024-10-31 09:23] LABS: Phosphorus 0.9 mg/dL (2.7-4.5)
[2024-10-31 09:34] LABS: Bedside Glucose 87 mg/dL (74-106)
[2024-10-31] MEDS: Insulin Glargine-YFGN 100 UNIT/ML Pen 10 UNIT SC (10:18)
[2024-10-31] MEDS: Fludrocortisone Acetate 0.1 MG Tablet PO (10:18)
[2024-10-31] MEDS: Citalopram 20 MG Tablet PO (10:18)
[2024-10-31] MEDS: Heparin Injection (Vial) 5,000 UNIT/ML VIAL 5000 UNIT SC ×2 (10:19→22:57)
--- NOTE | 2024-10-31 10:25 | PN.HOSP_ITS ---
Reason for Visit Reason for Visit: Diagnoses Type 2 diabetes mellitus with ketoacidosis without coma (10/28/24) Nausea with vomiting, unspecified (10/28/24) Diarrhea, unspecified (10/28/24) Subjective Subjective Saw patient at bedside this morning. Patient was mildly fatigued appearing but otherwise laying back comfortably in bed and in no acute distress. She appeared somewhat more awake and comfortable today than yesterday. She denied any abdominal pain or discomfort. She was feeling hungry and looking forward to eating. No other new concerns today. Objective Data Objective Data Vital Signs: Vital Signs Temp Pulse Resp BP Pulse Ox O2 Del Method 98 F 80 17 101/64 94 Room Air 10/31/24 06:00 10/31/24 07:00 10/31/24 07:00 10/31/24 07:00 10/31/24 07:00 10/31/24 07:00 Oxygen Delivery Method Room Air Weight: 78.3 kg Body Mass Index (BMI) 29.6 Intake & Output: Intake and Output for Last 24 Hours 10/29/24 10/30/24 10/31/24 23:59 23:59 23:59 Intake Total 4442.83 / 4442.83 2190.06 / 2190.06 2267.36 / 2267.36 Output Total 2975 / 2975 0 / 0 Balance 1467.83 / 1467.83 2190.06 / 2190.06 2267.36 / 2267.36 Lab / Micro Data 10/31/24 04:30 10/31/24 08:15 Labs: Laboratory Results - last 24 hr 10/30/24 03:50: b-Hydroxybutyric mmol/L 5.6 10/30/24 11:21: POC Glucose 129 H 10/30/24 13:26: POC Glucose 132 H 10/30/24 14:30: POC Glucose 97 10/30/24 15:35: POC Glucose 73 L 10/30/24 16:08: Sodium 138, Potassium 3.4, Chloride 110 H, Carbon Dioxide 12.7 L , Anion Gap 16 H, BUN 21 H, Creatinine 0.97, Estim Creat Clear Calc 60.74, Est GFR (MDRD) Non-Af 66, BUN/Creatinine Ratio 21.3 H, Glucose 70, Calcium 8.9 10/30/24 16:40: POC Glucose 62 L 10/30/24 17:22: POC Glucose 127 H 10/30/24 18:29: POC Glucose 103 10/30/24 19:30: POC Glucose 70 L 10/30/24 20:30: POC Glucose 54 L 10/30/24 20:40: Sodium 138, Potassium 3.3, Chloride 111 H, Carbon Dioxide 18.7 L , Anion Gap 8, BUN 18, Creatinine 0.87, Estim Creat Clear Calc 67.72, Est GFR (MDRD) Non-Af 75, BUN/Creatinine Ratio 20.3 H, Glucose 78, Calcium 8.7 10/30/24 21:19: POC Glucose 89 10/30/24 21:44: POC Glucose 82 10/30/24 22:46: POC Glucose 63 L 10/30/24 23:20: POC Glucose 77 10/31/24 00:00: Sodium Cancelled, Potassium Cancelled, Chloride Cancelled, Carbon Dioxide Cancelled, Anion Gap Cancelled, BUN Cancelled, Creatinine Cancelled, Estim Creat Clear Calc Cancelled, Est GFR (MDRD) Non-Af Cancelled, BUN/Creatinine Ratio Cancelled, Glucose Cancelled, Calcium Cancelled 10/31/24 00:02: POC Glucose 44 L* 10/31/24 00:06: POC Glucose 44 L* 10/31/24 00:32: POC Glucose 155 H 10/31/24 01:32: POC Glucose 72 L 10/31/24 01:35: Sodium 141, Potassium 3.3, Chloride 114 H, Carbon Dioxide 18.0 L , Anion Gap 10, BUN 15, Creatinine 0.84, Estim Creat Clear Calc 70.14, Est GFR (MDRD) Non-Af 79, BUN/Creatinine Ratio 17.6, Glucose 79, Calcium 8.9 10/31/24 02:32: POC Glucose 41 L* 10/31/24 03:47: POC Glucose 68 L 10/31/24 04:30: WBC 9.7, RBC 3.59 L, Hgb 10.3 L, Hct 31.7 L, MCV 88.3, MCH 28.7, MCHC 32.5, RDW Std Deviation 43.6, RDW Coeff of Kelechi 13.4, Plt Count 278, MPV 10.0, Sodium 141, Potassium 3.3, Chloride 116 H, Carbon Dioxide 16.8 L, Anion Gap 8, BUN 14, Creatinine 0.79, Estim Creat Clear Calc 74.58, Est GFR (MDRD) Non-Af 85, BUN/Creatinine Ratio 17.6, Glucose 58 L, Calcium 8.6 10/31/24 04:42: POC Glucose 53 L 10/31/24 05:35: POC Glucose 105 10/31/24 06:32: POC Glucose 70 L 10/31/24 07:37: POC Glucose 62 L 10/31/24 08:15: Sodium 140, Potassium 3.3, Chloride 114 H, Carbon Dioxide 18.4 L , Anion Gap 8, BUN 13, Creatinine 0.76, Estim Creat Clear Calc 77.71, Est GFR (MDRD) Non-Af 88, BUN/Creatinine Ratio 16.9, Glucose 119 H, Calcium 8.5, P hosphorus 0.9 L*, Magnesium 2.1, b-Hydroxybutyric mmol/L 0.1 10/31/24 09:15: POC Glucose 87 Micro: Microbiology 10/28/24 23:45 Nasal Secretion MRSA (PCR) - Final ABG Data ABG results: ABG 10/28/24 22:01 VBG HCO3 3 L Physical Exam Const alert, oriented x3, no apparent distress and average body habitus Constitutional Narrative: Upper middle-aged female, overweight, mildly fatigued today but improved from yesterday, otherwise sitting back comfortably in bed, conversing normally, in no acute distress. General Appearance: cooperative and comfortable HEENT normocephalic, head/scalp atraumatic, hearing grossly normal bilaterally, nasal mucous membranes and turbinates normal and moist oral mucous membranes Eyes PERRL, EOMs intact bilaterally and conjunctivae normal Neck full ROM Chest inspection of chest normal Resp normal respiratory effort, normal air movement, no use of accessory muscles and clear to auscultation bilaterally Cardio no murmurs and peripheral pulses 2+ throughout Cardio Narrative: Tachycardic, regular rhythm. GI normal to inspection, nondistended, normoactive bowel sounds, soft to palpation, non-tender and non-distended Back/Spine normal ROM Extremity normal to inspection, full ROM and no pedal edema Skin no rashes or lesions noted Psych mental status grossly normal Psych Narrative: Flat affect. Assessment & Plan Assessment/Plan (1) Diabetic ketoacidosis: PLAN: Plan Patient is a 63-year-old female who presented to [facility] ED on 10/29/2024 with abdominal pain and nausea with vomiting. 1. DKA in setting of type 2 diabetes mellitus ? Highest concern is for euglycemic DKA given patient's presentation. Follows with Dr. Siddiqui. Home regimen of empagliflozin, glimepiride, metformin, and Trulicity. Last A1c 7.0% in February, worsened to 9.2% on this admission. Patient notably was off her home medications for recent colonoscopy. Blood sugar 420 on admit but ABG with pH 6.74, bicarb less than 2 on BMP and beta- hydroxybutyrate 9.8. Started on insulin drip with DKA protocol on admission and anion gap closed on 10/29 and patient felt hungry, so she was transitioned to basal plus prandial insulin regimen. She unfortunately vomited her first meal and did not eat or drink much, and on morning of 10/30 her gap reopened and beta- hydroxybutyrate was elevated. She was placed back on insulin drip. Gap resolved by morning of 10/31 and beta-hydroxybutyrate negative, transitioned back to Lantus 10 units at night and Humalog 3 units with meals plus sliding scale. Will monitor today and follow-up labs tomorrow. If patient doing well tomorrow, will plan for discharge home and resume home regimen minus empagliflozin, then allow Dr. Siddiqui to make further adjustments to regimen in the outpatient setting. 2. Concern for infection of unclear source ? Met SIRS criteria on admit with WBC count 28, lactate 3.6, tachycardia and hypothermia. Procalcitonin elevated at 0.6. No clear source of infection at this time. WBC count resolved by 10/31. Initially treated with IV vancomycin and Zosyn, vancomycin discontinued on 10/30. Blood cultures negative to this point and infectious workup otherwise benign. Suspect her presentation may all be secondary to stress state from severe DKA but will continue Zosyn while inpatient and plan for 7-day course of antibiotics total. 3. JACKELIN, resolved ? Creatinine 1.2 on admit, baseline around 0.8-0.9. Improved back to baseline by hospital day 3 after IV fluid resuscitation. Monitoring daily BMP as noted above. 4. Hypophosphatemia ? Phosphorus level 0.9 on 10/31. Will replete aggressively. Chronic medical conditions: ? Hypertension: Continue home Coreg. ? Hyperlipidemia: Continue home statin. ? Depression: Continue home citalopram. ? Restless leg syndrome: Continue home ropinirole. ? Postural hypotension: Continue home fludrocortisone. DVT prophylaxis: Lovenox CODE STATUS: Full code, verified Expected disposition: Home, 1 to 2 days Total clinical time spent by myself addressing the patient's medical issues, reviewing all the data, and collaborating with patient's care team: 35 minutes. Charges/Coding Visit Charges Inpatient E&M: 97734 Subs Hosp L2
[2024-10-31] MEDS: Na Biphos/Potassium Phosphate PACKET 1 PACKET PO ×4 (11:24→22:58)
[2024-10-31] MEDS: Potassium Chloride Oral Tablet 20 MEQ 40 MEQ PO (11:27)
[2024-10-31 11:38] LABS: Bedside Glucose 113 mg/dL (74-106)
[2024-10-31] MEDS: Pantoprazole Sodium 40 MG in 0.9% Normal Saline (100mL MB+) 100 ML 330 MG IV ×2 (12:15→22:58)
[2024-10-31 16:57] LABS: Bedside Glucose 113 mg/dL (74-106)
[2024-10-31] MEDS: Atorvastatin Calcium 80 MG Tablet PO (22:57)
[2024-10-31] MEDS: Pramipexole Di-HCl 0.125 MG Tablet PO (22:57)
[2024-11-01] VITALS (11 sets, daily range): BP systolic 94–138; BP diastolic 55–77; PULSE 72–87; RESP 15–23; TEMP 36.4–37; O2SAT 93–97; BMI 29.8
[2024-11-01 00:53] LABS: Bedside Glucose 146 mg/dL (74-106)
[2024-11-01] MEDS: Piperacil/Tazobactam 3.375 GM in 0.9% Normal Saline (50mL MB+) 50 ML IV (05:20)
[2024-11-01] MEDS: 0.9% Saline Lock 10 ML Syringe IV (05:31)
[2024-11-01] MEDS: 0.9% Normal Saline (100mL Bag) 100 ML 15 ML IV (05:36)
[2024-11-01 05:47] LABS: Hematocrit 33.4 % (37-47); Hemoglobin 11.1 g/dL (12.0-15.0); Mean Corp Hgb Conc 33.2 g/dL (32-36); Mean Corpuscular Hgb 28.7 pg (27.0-32.0); Mean Corpuscular Volume 86.3 fL (81-99); Mean Platelet Vol. 10.2 fl (6.2-12.0); Platelet Count 310 K/mm3 (150-450); RBC Distribution Width CV 13.4 % (11.6-14.6); RBC Distribution Width SD 42.4 fl (35.1-43.9); Red Blood Count 3.87 M/mm3 (4.2-5.4); White Blood Count 7.7 K/mm3 (4.4-11.0)
[2024-11-01 06:18] LABS: Anion Gap 11 (5-15); BUN 8 mg/dL (4-19); BUN/Creat Ratio 13.3 RATIO (10-20); Calcium,Total 8.2 mg/dL (7.6-11.0); Carbon Dioxide 21.7 mmol/L (21.0-32.0); Chloride 108 mmol/L (98-108); EST Glomerular Filtration Rate 101 (>60); Estimated Creatinine Clearance 98.81 ml/min (50-250); Glucose 127 mg/dL (70-99); Potassium 3.3 mmol/L (3.3-5.1); Sodium Level 141 mmol/L (133-145)
[2024-11-01 07:13] LABS: Phosphorus 2.2 mg/dL (2.7-4.5)
[2024-11-01 08:09] LABS: Bedside Glucose 119 mg/dL (74-106)
[2024-11-01] MEDS: Citalopram 20 MG Tablet PO (08:11)
[2024-11-01] MEDS: Na Biphos/Potassium Phosphate PACKET 1 PACKET PO (08:12)
[2024-11-01] MEDS: Pantoprazole Sodium 40 MG in 0.9% Normal Saline (100mL MB+) 100 ML 330 MG IV (08:13)
[2024-11-01] MEDS: Heparin Injection (Vial) 5,000 UNIT/ML VIAL 5000 UNIT SC (08:13)
[2024-11-01] MEDS: Fludrocortisone Acetate 0.1 MG Tablet PO (08:14)
[2024-11-01] MEDS: Insulin Glargine-YFGN 100 UNIT/ML Pen 10 UNIT SC (08:15)
--- NOTE | 2024-11-01 09:22 | PCM.DC ---
Discharge Instructions Diet Discharge Diet: Carb Control Diet DC O2, CPAP, BIPAP needs Home O2 Discharge instructions: No Dressing / Incision Discharge Activity: No Restrictions Follow Up Care Test Results: Test results from this visit will be discussed in further detail at your follow-up appointment, if applicable. Discharge Plan Admission Admit Date/Time: 10/28/24 22:29 Primary Reason for Your Visit: abdominal pain and nausea/vomiting Attending Provider: Tavo Ortega Primary Care Provider: Tommy Rothman Consulting Providers: Sugey Harrington Discharge Orders/Prescriptions Prescriptions: New insulin glargine [Basaglar KwikPen U-100 Insulin] 100 unit/mL (3 mL) insulin pen 15 unit subcut QHS 30 Days Qty: 15 0RF insulin lispro [Humalog KwikPen Insulin] 100 unit/mL insulin pen See Protocol subcut .tidac 30 Days Qty: 15 0RF Protocol: 3. Sliding Scale Insulin Med Dosing Condition: 150-189 mg/dl = 1 unit Condition: 190-229 mg/dl = 2 units Condition: 230-269 mg/dl = 3 units Condition: 270-309 mg/dl = 4 units Condition: 310-349 mg/dl = 5 units Condition: 350-399 mg/dl = 6 units Condition: 400-449 mg/dl = 7 units Condition: Greater than 449 call physician Protocol Text: Suggested for: - Patients on Total Daily Insulin Dose of 37-55 units - Obese, infected, or steroid patients MEDIUM DOSING ALGORITHIM Continued cetirizine 10 mg tablet 10 mg PO DAILY PRN (Reason: allergy symptoms) rosuvastatin 40 mg tablet 40 mg PO [facility] Patient Comments: TAKE 1 TABLET BY MOUTH AT NIGHT Rx Instructions: -SUN Nurtec ODT 75 mg tablet,disintegrating 75 mg PO DAILY PRN (Reason: migraine headache) Qty: 16 2RF (DME) FreeStyle Hector 3 Plus Sensor Device See Rx Instructions .Route Qty: 2 6RF Rx Instructions: As directed glimepiride 2 mg tablet 2 mg PO DAILY Qty: 90 3RF metformin 1,000 mg tablet 1,000 mg PO BID Qty: 180 1RF Trulicity 0.75 mg/0.5 mL pen injector 0.75 mg subcut QWEEK Qty: 2 5RF carvedilol [Coreg] 3.125 mg tablet 3.125 mg PO BID Rx Instructions: must administer with a meal/food verapamil 180 mg capsule,ext rel. pellets 24 hr 180 mg PO DAILY citalopram 20 mg tablet 20 mg PO DAILY ropinirole 0.25 mg tablet 0.25 mg PO QHS fludrocortisone 0.1 mg tablet 0.1 mg PO DAILY Discontinued Jardiance 25 mg tablet 25 mg PO DAILY Qty: 90 1RF cephalexin 500 mg capsule 500 mg PO BID 5 Days Qty: 10 0RF Referrals / Follow Up: Tommy Rothman MD [Primary Care Provider] - Jerry Siddiqui MD [Med Staff - Courtesy Staff] - Disposition Disposition (needs filled in before D/C Order can be placed): Home, Self Care
--- NOTE | 2024-11-01 09:26 | DS.PCM_ITS ---
Providers Date of Admission: 10/28/24 Date of Discharge: 11/01/24 Primary Care Physician: Dr. Tommy Rothman MD Consultations 10/28/24 23:16 Consult: Heat Treat Technician / Pulmonary Medicine Routine Consulting Provider: Intensivists/Pulmonary Med Reason for Consult: DKA, SIRS, JACKELIN EMERGENT Consult: No MD Notified: Yes Date Notified: 10/28/24 Time Notified: 22:33 Method of Notification: Text Reason For Visit: DKA,JACKELIN Diagnosis Discharge Diagnosis (1) Diabetic ketoacidosis: Status: Acute Code(s): E11.10 - Type 2 diabetes mellitus with ketoacidosis without coma Medications at Discharge Home Medications cetirizine 10 mg tablet 10 mg PO DAILY PRN allergy symptoms 04/19/22 rimegepant 75 mg disintegrating tablet (Nurtec ODT) 75 mg PO DAILY PRN migraine headache #16 tabs 04/26/23 Trulicity 0.75 mg/0.5 mL subcutaneous pen injector (dulaglutide) 0.75 mg (0.5 mL) subcut QWEEK #2 mL 03/25/24 blood-glucose sensor (FreeStyle Hector 3 Plus Sensor device) #2 ea 03/25/24 glimepiride 2 mg tablet 2 mg PO DAILY #90 tabs 03/25/24 metformin 1,000 mg tablet 1,000 mg PO BID #180 tabs 03/25/24 rosuvastatin 40 mg tablet 40 mg PO MOTUTHFRSA high cholesterol 05/27/24 carvedilol 3.125 mg tablet (Coreg) 3.125 mg PO BID blood pressure 10/29/24 citalopram 20 mg tablet 20 mg PO DAILY depression 10/29/24 fludrocortisone 0.1 mg tablet 0.1 mg PO DAILY pt unsure 10/29/24 ropinirole 0.25 mg tablet 0.25 mg PO QHS pt unable 10/29/24 verapamil 180 mg 24 hr capsule,extended release 180 mg PO DAILY blood pressure 10/29/24 insulin glargine 100 unit/mL (3 mL) subcutaneous pen (Basaglar KwikPen U-100 Insulin) 15 unit (0.15 mL) subcut QHS 30 days #15 mL 11/01/24 insulin lispro 100 unit/mL subcutaneous pen (Humalog KwikPen (U-100) Insulin) See Protocol subcut .tidac 30 days #15 mL 11/01/24 Hospital Course Operations None Procedures EKG and - (CTA chest abdomen pelvis) Summary of Care Provided Minutes Spent on Discharge: 35 Hospital Course: Patient is a 63-year-old female who presented to [facility] ED on 10/29/2024 with abdominal pain and nausea with vomiting. Hospital course as noted below. Patient discharged home in stable condition on 11/01. 1. DKA in setting of type 2 diabetes mellitus ? Highest concern is for euglycemic DKA given patient's presentation. Follows with Dr. Siddiqui. Home regimen of empagliflozin, glimepiride, metformin, and Trulicity. Last A1c 7.0% in February, worsened to 9.2% on this admission. Patient notably was off her home medications for recent colonoscopy. Also per family, patient has poor adherence to diabetic diet and has missed her last few appointments with Dr. Siddiqui. ? Blood sugar 420 on admit but ABG with pH 6.74, bicarb less than 2 on BMP and beta-hydroxybutyrate 9.8. Started on insulin drip with DKA protocol on admission and anion gap closed on 10/29 and patient felt hungry, so she was transitioned to basal plus prandial insulin regimen. She unfortunately vomited her first meal and did not eat or drink much, and on morning of 10/30 her gap reopened and beta-hydroxybutyrate was elevated. She was placed back on insulin drip. ? Gap resolved by morning of 10/31 and beta-hydroxybutyrate negative, transitioned back to Lantus 10 units at night and Humalog 3 units with meals plus sliding scale. Patient had good blood sugar control on this and labs on 11/01 remained much improved. ? Discussed discharge plan with patient and family; notably patient's [id number] is a nurse. They were interested in being more aggressive with her glucose management and patient will have Dexcom to monitor her blood sugars closely at home. Will start Lantus 15 units at night and Humalog sliding scale with meals as needed. Will continue home metformin, Trulicity and glimepiride. Jardiance discontinued. Recommended that they call Dr. Siddiqui's office on Sunday to schedule a follow-up appointment with her in the next week or so. 2. Concern for infection of unclear source ? Met SIRS criteria on admit with WBC count 28, lactate 3.6, tachycardia and hypothermia. Procalcitonin elevated at 0.6. No clear source of infection at this time. WBC count resolved by 10/31. Initially treated with IV vancomycin and Zosyn, vancomycin discontinued on 10/30. Blood cultures negative to this point and infectious workup otherwise benign. Suspect her presentation was secondary to stress state from severe DKA. Treated with IV Zosyn while inpatient but no need for further antibiotics on discharge. 3. JACKELIN, resolved ? Creatinine 1.2 on admit, baseline around 0.8-0.9. Improved back to baseline by hospital day 3 after IV fluid resuscitation. 4. Hypophosphatemia ? Phosphorus level 0.9 on 10/31. Repleted aggressively and repeat phosphorus 2.2 on 11/01, much improved. Chronic medical conditions: ? Hypertension: Continue home Coreg. ? Hyperlipidemia: Continue home statin. ? Depression: Continue home citalopram. ? Restless leg syndrome: Continue home ropinirole. ? Postural hypotension: Continue home fludrocortisone. Total clinical time spent by myself addressing the patient's medical issues, reviewing all the data, and collaborating with patient's care team: 35 minutes. Physical Exam Const alert, oriented x3, no apparent distress and average body habitus Constitutional Narrative: Upper middle-aged female, overweight, energy much improved from admission, laying back comfortably in bed, conversing normally, in no acute distress. General Appearance: cooperative and comfortable HEENT normocephalic, head/scalp atraumatic, hearing grossly normal bilaterally, nasal mucous membranes and turbinates normal and moist oral mucous membranes Eyes PERRL, EOMs intact bilaterally and conjunctivae normal Neck full ROM Chest inspection of chest normal Resp normal respiratory effort, normal air movement, no use of accessory muscles and clear to auscultation bilaterally Cardio regular rate, regular rhythm, no murmurs and peripheral pulses 2+ throughout GI normal to inspection, nondistended, normoactive bowel sounds, soft to palpation, non-tender and non-distended Back/Spine normal ROM Extremity normal to inspection, full ROM and no pedal edema Skin no rashes or lesions noted Psych mental status grossly normal Psych Narrative: Flat affect. Weight / BMI Weight Weight: 78.9 kg Body Mass Index (BMI) 29.8 ABG / Lab / Microbiology Data 11/01/24:20 11/01/24 05:20 Laboratory: Laboratory Results - last 24 hr 10/31/24 16:37: POC Glucose 113 H 10/31/24 23:16: POC Glucose 146 H 11/01/24 05:20: WBC 7.7, RBC 3.87 L, Hgb 11.1 L, Hct 33.4 L, MCV 86.3, MCH 28.7, MCHC 33.2, RDW Std Deviation 42.4, RDW Coeff of Kelechi 13.4, Plt Count 310, MPV 10.2, Sodium 141, Potassium 3.3, Chloride 108, Carbon Dioxide 21.7, Anion Gap 11, BUN 8, Creatinine 0.60 L, Estim Creat Clear Calc 98.81, Est GFR (MDRD) Non- Af 101, BUN/Creatinine Ratio 13.3, Glucose 127 H, Calcium 8.2, Phosphorus 2.2 L 11/01/24 07:47: POC Glucose 119 H Microbiology: Microbiology 10/28/24 21:00 Blood Culture (Wb) - Anticubital Left Blood Culture - Preliminary No growth in 48 hours. 10/28/24 21:00 Blood Culture (Wb) - Anticubital Right Blood Culture - Preliminary No growth in 48 hours. 10/28/24 23:45 Nasal Secretion MRSA (PCR) - Final D/C Instructions Discharge Diet: Carb Control Diet DC O2, CPAP, BIPAP Needs Home O2 Discharge instructions: No Meaningful Use Info Meaningful Use Meaningful Use Diagnoses (Choose all that apply): None applicable Ischemic Stroke Statin Dosing Therapy Reference: STATIN DOSE THERAPY REFERENCE: * Patients > 75 years receive moderate or high dose statin therapy. * Patients 75 years or YOUNGER should receive HIGH intensity statin dose unless contraindicated. You will be required to document reason for non-treatment if statin daily dose does not meet guidelines. HIGH DOSE STATIN THERAPY DAILY Atorvastatin > than or = to 40 mg Rosuvastatin > than or = to 20 mg Amlodipine + Atorvastatin > than or = to 2.5/40 mg Ezetimibe + Simvastatin 10/80 mg Simvastatin 80mg Discharge Plan Admission Admit Date/Time: 10/28/24 22:29 Primary Reason for Your Visit: abdominal pain and nausea/vomiting Attending Provider: Tavo Ortega Primary Care Provider: Tommy Rothman Consulting Providers: Sugey Harrington Discharge Orders/Prescriptions Prescriptions: New insulin glargine [Basaglar KwikPen U-100 Insulin] 100 unit/mL (3 mL) insulin pen 15 unit subcut QHS 30 Days Qty: 15 0RF insulin lispro [Humalog KwikPen Insulin] 100 unit/mL insulin pen See Protocol subcut .tidac 30 Days Qty: 15 0RF Protocol: 3. Sliding Scale Insulin Med Dosing Condition: 150-189 mg/dl = 1 unit Condition: 190-229 mg/dl = 2 units Condition: 230-269 mg/dl = 3 units Condition: 270-309 mg/dl = 4 units Condition: 310-349 mg/dl = 5 units Condition: 350-399 mg/dl = 6 units Condition: 400-449 mg/dl = 7 units Condition: Greater than 449 call physician Protocol Text: Suggested for: - Patients on Total Daily Insulin Dose of 37-55 units - Obese, infected, or steroid patients MEDIUM DOSING ALGORITHIM Continued cetirizine 10 mg tablet 10 mg PO DAILY PRN (Reason: allergy symptoms) rosuvastatin 40 mg tablet 40 mg PO [facility] Patient Comments: TAKE 1 TABLET BY MOUTH AT NIGHT Rx Instructions: -SAT Nurtec ODT 75 mg tablet,disintegrating 75 mg PO DAILY PRN (Reason: migraine headache) Qty: 16 2RF (DME) FreeStyle Hector 3 Plus Sensor Device See Rx Instructions .Route Qty: 2 6RF Rx Instructions: As directed glimepiride 2 mg tablet 2 mg PO DAILY Qty: 90 3RF metformin 1,000 mg tablet 1,000 mg PO BID Qty: 180 1RF Trulicity 0.75 mg/0.5 mL pen injector 0.75 mg subcut QWEEK Qty: 2 5RF carvedilol [Coreg] 3.125 mg tablet 3.125 mg PO BID Rx Instructions: must administer with a meal/food verapamil 180 mg capsule,ext rel. pellets 24 hr 180 mg PO DAILY citalopram 20 mg tablet 20 mg PO DAILY ropinirole 0.25 mg tablet 0.25 mg PO QHS fludrocortisone 0.1 mg tablet 0.1 mg PO DAILY Discontinued Jardiance 25 mg tablet 25 mg PO DAILY Qty: 90 1RF cephalexin 500 mg capsule 500 mg PO BID 5 Days Qty: 10 0RF Referrals / Follow Up: Tommy Rothman MD [Primary Care Provider] - Jerry Siddiqui MD [Med Staff - Courtesy Staff] - Disposition Disposition (needs filled in before D/C Order can be placed): Home, Self Care Charges/Coding Visit Charges Inpatient E&M: 85487 Disch Hosp >30min
[2024-11-02 15:19] LABS: Pathologist Review May foll
== END 2024-11-01 10:29 | disposition home or self-care (01) | DRG 637 ==
LOC: ED 19:40 → ICU 22:37
PROVIDERS: Admitting Provider Family Medicine; Emergency Provider Emergency Medicine; PCP Family Medicine; Visit Provider Hospitalist
DX: E11.10 Type 2 diabetes mellitus with ketoacidosis without coma (principal); R65.11 Systemic inflammatory response syndrome (SIRS) of non-infectious origin with acute organ dysfunction; N17.9 Acute kidney failure, unspecified; T68.XXXA Hypothermia, initial encounter; E11.65 Type 2 diabetes mellitus with hyperglycemia; I12.9 Hypertensive chronic kidney disease with stage 1 through stage 4 chronic kidney disease, or unspecified chronic kidney disease; F32.A Depression, unspecified; G25.81 Restless legs syndrome; E78.5 Hyperlipidemia, unspecified; N18.2 Chronic kidney disease, stage 2 (mild); E11.22 Type 2 diabetes mellitus with diabetic chronic kidney disease; G47.33 Obstructive sleep apnea (adult) (pediatric); J30.9 Allergic rhinitis, unspecified; G43.709 Chronic migraine without aura, not intractable, without status migrainosus; I95.1 Orthostatic hypotension; E87.8 Other disorders of electrolyte and fluid balance, not elsewhere classified; Z83.3 Family history of diabetes mellitus; Z79.84 Long term (current) use of oral hypoglycemic drugs; Z90.710 Acquired absence of both cervix and uterus; Z79.891 Long term (current) use of opiate analgesic; Z79.85 Long-term (current) use of injectable non-insulin antidiabetic drugs; Z79.899 Other long term (current) drug therapy; Z79.02 Long term (current) use of antithrombotics/antiplatelets; Z91.048 Other nonmedicinal substance allergy status; Z88.5 Allergy status to narcotic agent; Z88.8 Allergy status to other drugs, medicaments and biological substances; X58.XXXA Exposure to other specified factors, initial encounter
CPT/HCPCS: 51702; 71275; 74174; 80048; 80053; 81001; 82010; 82803; 82962; 83036; 83605; 83690; 83735; 84100; 84145; 85025; 85027; 87040; 87641; 93005; 94762; 97162; 97166; 97530; 97802; 97803; 99285; Q9967; A4216; J2405

== ENCOUNTER → 2024-11-11 | Outpatient (CLI) | payer OTHER, SELFPAY ==
[2024-11-11 13:04] LABS: ALB/GLOB Ratio 1.7 RATIO (0.9-2.4); AST(SGOT) 53 U/L (<=31); Alanine Aminotransfer ALT/SGPT 85 U/L (<=34); Albumin, Serum 4.4 g/dL (3.4-4.8); Alkaline Phosphatase 78 U/L (35-104); Anion Gap 12 (5-15); BUN 13 mg/dL (4-19); BUN/Creat Ratio 15.7 RATIO (10-20); Calcium,Total 9.7 mg/dL (7.6-11.0); Carbon Dioxide 24.9 mmol/L (21.0-32.0); Chloride 100 mmol/L (98-108); Creatinine, Serum 0.83 mg/dL (0.70-1.20); EST Glomerular Filtration Rate 80 (>60); Globulin 2.6 g/dL (2.2-4.2); Glucose 154 mg/dL (70-99); Potassium 4.1 mmol/L (3.3-5.1); Sodium Level 137 mmol/L (133-145); Total Bilirubin 0.41 mg/dL (0.00-1.30)
== END | disposition home or self-care (01) ==
LOC: MTLAB 10:03
PROVIDERS: PCP Family Medicine; Referring Provider Family Medicine; Visit Provider Family Medicine
DX: N17.9 Acute kidney failure, unspecified (principal); E83.39 Other disorders of phosphorus metabolism
CPT/HCPCS: 36415; 80053; 84100

== ENCOUNTER → 2024-12-02 | Outpatient (CLI) | payer OTHER, SELFPAY ==
[2024-12-02 12:44] LABS: Absolute Lymphocyte Count 3.81 X10^3/uL (0.83-4.51); Absolute Neutrophil Count 4.3 X10^3/uL (2.0-7.7); Basophil# 0.11 X10^3/uL; Basophil% 1.2 % (0-1); Eosinophil# 0.41 X10^3/uL; Eosinophils% 4.3 % (0-5); Hematocrit 44.1 % (37-47); Hemoglobin 14.2 g/dL (12.0-15.0); Lymphocyte # 3.81 X10^3/ul (0.83-4.51); Lymphocyte % 40.4 % (19-41); Mean Corp Hgb Conc 32.2 g/dL (32-36); Mean Corpuscular Hgb 28.7 pg (27.0-32.0); Mean Corpuscular Volume 89.3 fL (81-99); Mean Platelet Vol. 10.3 fl (6.2-12.0); Monocyte# 0.77 X10^3/uL; Monocyte% 8.2 % (0-10); NRBC Flagged by Analyzer 0 % (0-5); Neutrophil # 4.31 X10^3/uL (2.7-7.7); Neutrophil % 45.7 % (47-70); Platelet Count 377 K/mm3 (150-450); RBC Distribution Width CV 13.1 % (11.6-14.6); RBC Distribution Width SD 42.5 fl (35.1-43.9); Red Blood Count 4.94 M/mm3 (4.2-5.4); White Blood Count 9.4 K/mm3 (4.4-11.0)
[2024-12-02 13:08] LABS: ALB/GLOB Ratio 1.8 RATIO (0.9-2.4); AST(SGOT) 32 U/L (<=31); Alanine Aminotransfer ALT/SGPT 59 U/L (<=34); Albumin, Serum 4.4 g/dL (3.4-4.8); Alkaline Phosphatase 89 U/L (35-104); Anion Gap 13 (5-15); BUN 13 mg/dL (4-19); BUN/Creat Ratio 16.9 RATIO (10-20); Calcium,Total 9.6 mg/dL (7.6-11.0); Carbon Dioxide 24.1 mmol/L (21.0-32.0); Chloride 102 mmol/L (98-108); Creatinine, Serum 0.76 mg/dL (0.70-1.20); EST Glomerular Filtration Rate 88 (>60); Globulin 2.4 g/dL (2.2-4.2); Glucose 153 mg/dL (70-99); Magnesium 1.9 mg/dL (1.5-2.2); Potassium 4.6 mmol/L (3.3-5.1); Protein, Total 6.9 g/dL (5.9-8.4); Sodium Level 139 mmol/L (133-145); Total Bilirubin 0.49 mg/dL (0.00-1.30)
== END | disposition home or self-care (01) ==
LOC: MFPLAB 10:41
PROVIDERS: PCP Family Medicine; Referring Provider Family Medicine; Visit Provider Family Medicine
DX: R19.7 Diarrhea, unspecified (principal)
CPT/HCPCS: 36415; 80053; 83735; 85025

== ENCOUNTER → 2024-12-03 | Outpatient (CLI) | payer OTHER, SELFPAY ==
--- NOTE | 2024-12-03 13:24 | CT_ITS ---
PROCEDURE: ABDOMEN W/WO IV CONTRAST 12/03/2024 REASON FOR EXAM: ADRENAL PROTOCOL, ASSESS ADRENAL MASS TECHNIQUE: Abdomen CT with intravenous contrast. Multiplanar and multisequence images were obtained. Adrenal protocol was performed. One or more dose reduction techniques were used (e.g., Automated exposure control, adjustment of the mA and/or kV according to patient size, use of iterative reconstruction technique. PATIENT PREPARATION: Per protocol ORAL CONTRAST TYPE: None. AMOUNT: mL CONTRAST: Isovue-350 VOLUME: 100 mL Gauge IV RADIATION DOSE SUMMARY: CTDlvol: 11.14 mGy DLP: 424 mGycm COMPARISON: CT scan on 10/28/2024. FINDINGS: Technique: Axial CT scan images with intravenous contrast. Reformatted coronal and sagittal images. One or more dose reduction techniques were used (e.g., Automated exposure control, adjustment of the mA and/or kV according to patient size, use of iterative reconstruction technique. Findings: Well-defined 1.7 cm left adrenal nodule is unchanged. Precontrast density of the nodule 14 Hounsfield units. Early postcontrast density of the nodule 81 Hounsfield units. Delayed post-contrast density of the nodule 27 Hounsfield units. Absolute washout: 80.6%. Relative washout: 66.7%. Findings are highly suggestive of benign adenoma. Normal right adrenal gland. Mild hepatic steatosis. Mild diffuse spondylosis. Prior cholecystectomy. The visualized lung bases are unremarkable. Normal extrahepatic biliary system. Normal spleen. Normal pancreas. Normal size of the right kidney. There is no right renal mass. There are no right renal calculi. There is no right hydronephrosis. Normal visualized right ureter. Normal size of the left kidney. There is no left renal mass. There are no left renal calculi. There is no left hydronephrosis. Normal visualized left ureter. Normal visualized stomach. Normal small intestine. Normal colon. There is no demonstrated peritoneal fluid. Normal abdominal aorta. Normal inferior vena cava. Normal retroperitoneum. Normal abdominal wall. CT/Abdomen W/WO IV Contrast IMPRESSION: 1. Well-defined 1.7 cm left adrenal nodule is unchanged. 2. Precontrast density of the nodule 14 Hounsfield units. 3. Early postcontrast density of the nodule 81 Hounsfield units. 4. Delayed post-contrast density of the nodule 27 Hounsfield units. 5. Absolute washout: 80.6%. 6. Relative washout: 66.7%. 7. Findings are highly suggestive of benign adenoma. Reading Location: [facility] [place] [address]
== END | disposition home or self-care (01) ==
LOC: CT 13:22
PROVIDERS: PCP Family Medicine; Referring Provider Nurse Practitioner Family; Visit Provider Nurse Practitioner Family
DX: E27.8 Other specified disorders of adrenal gland (principal)
CPT/HCPCS: 74170; Q9967

== ENCOUNTER → 2024-12-04 | Outpatient (CLI) | payer OTHER, SELFPAY ==
--- NOTE | 2024-12-04 12:26 | NM_ITS ---
PROCEDURE: GASTRIC EMPTYING STUDY 12/04/2024 REASON FOR EXAM: EARLY SAITEY, NAUSEA, DM COMPARISON: None. TECHNIQUE: The patient ingested a semi-solid meal of oatmeal. There was no vomiting postprandially. Anterior and posterior planar images of the upper abdomen were obtained for 1 minute immediately following the meal at 1h, 2h and 4h if more than 10% of the activity persisted within the stomach. Regions of interest were drawn, and a geometric mean was used to calculate a [id number]. Medications taken in the past 24 hours that may affect gastric emptying: None RADIOPHARMACEUTICAL: Oral administration, within oatmeal, of 1.1 mCi technetium 99 M sulfur colloid. FINDINGS: Gastric emptying half-time linear fit of 46.3 minutes. No gastroesophageal reflux was noted during the time of imaging. Gastric emptying as follows: 17.5 minutes: 18%; 29.5 minute: 36%; 41.5 minute: 42%; 59.5 minute: 63%. NM/Gastric Emptying Study IMPRESSION: Normal semi solid phase gastric emptying. Reading Location: [place] [id number]
== END | disposition home or self-care (01) ==
LOC: NM 12:25
PROVIDERS: PCP Family Medicine; Referring Provider Family Medicine; Visit Provider Family Medicine
DX: R68.81 Early satiety (principal); E11.9 Type 2 diabetes mellitus without complications; R11.0 Nausea
CPT/HCPCS: 78264; A9541

== ENCOUNTER → 2024-12-12 | Outpatient (CLI) | payer OTHER, SELFPAY ==
[2024-12-14 14:08] LABS: DHEA Sulfate 89.6 ug/dL (29.4-220.5)
== END | disposition home or self-care (01) ==
LOC: MTLAB 13:58
PROVIDERS: PCP Family Medicine; Referring Provider Nurse Practitioner Family; Visit Provider Nurse Practitioner Family
DX: E27.8 Other specified disorders of adrenal gland (principal)
CPT/HCPCS: 36415; 82627; 82626

== ENCOUNTER → 2024-12-23 | Outpatient (CLI) | payer OTHER, SELFPAY ==
[2024-12-23 12:55] LABS: CORTISOL AM 1.34 ug/dL (6.02-18.40)
== END | disposition home or self-care (01) ==
LOC: MTLAB 09:47
PROVIDERS: PCP Family Medicine; Referring Provider Nurse Practitioner Family; Visit Provider Nurse Practitioner Family
DX: E27.8 Other specified disorders of adrenal gland (principal)
CPT/HCPCS: 36415; 82533

== ENCOUNTER → 2024-12-31 | Outpatient (CLI) | payer OTHER, SELFPAY ==
[2024-12-31 12:28] LABS: Absolute Lymphocyte Count 2.75 X10^3/uL (0.83-4.51); Absolute Neutrophil Count 7.6 X10^3/uL (2.0-7.7); Basophil# 0.07 X10^3/uL; Basophil% 0.6 % (0-1); Eosinophils% 2.5 % (0-5); Hematocrit 46.1 % (37-47); Hemoglobin 14.9 g/dL (12.0-15.0); Lymphocyte # 2.75 X10^3/ul (0.83-4.51); Lymphocyte % 23.4 % (19-41); Mean Corp Hgb Conc 32.3 g/dL (32-36); Mean Corpuscular Hgb 28.8 pg (27.0-32.0); Mean Platelet Vol. 10.4 fl (6.2-12.0); Monocyte# 1.03 X10^3/uL; Monocyte% 8.8 % (0-10); NRBC Flagged by Analyzer 0 % (0-5); Neutrophil # 7.58 X10^3/uL (2.7-7.7); Neutrophil % 64.4 % (47-70); Platelet Count 363 K/mm3 (150-450); RBC Distribution Width CV 13.2 % (11.6-14.6); RBC Distribution Width SD 43.3 fl (35.1-43.9); Red Blood Count 5.18 M/mm3 (4.2-5.4); White Blood Count 11.8 K/mm3 (4.4-11.0)
[2024-12-31 12:49] LABS: ALB/GLOB Ratio 1.8 RATIO (0.9-2.4); AST(SGOT) 43 U/L (<=31); Alanine Aminotransfer ALT/SGPT 72 U/L (<=34); Albumin, Serum 4.5 g/dL (3.4-4.8); Alkaline Phosphatase 93 U/L (35-104); Anion Gap 14 (5-15); BUN 19 mg/dL (4-19); BUN/Creat Ratio 17.4 RATIO (10-20); Calcium,Total 9.6 mg/dL (7.6-11.0); Carbon Dioxide 21.6 mmol/L (21.0-32.0); Chloride 103 mmol/L (98-108); Creatinine, Serum 1.08 mg/dL (0.70-1.20); EST Glomerular Filtration Rate 58 (>60); Globulin 2.6 g/dL (2.2-4.2); Glucose 174 mg/dL (70-99); Potassium 3.9 mmol/L (3.3-5.1); Protein, Total 7.1 g/dL (5.9-8.4); Sodium Level 138 mmol/L (133-145); Total Bilirubin 0.57 mg/dL (0.00-1.30)
== END | disposition home or self-care (01) ==
LOC: MFPLAB 10:33
PROVIDERS: PCP Family Medicine; Referring Provider Family Medicine; Visit Provider Family Medicine
DX: N17.9 Acute kidney failure, unspecified (principal)
CPT/HCPCS: 36415; 80053; 85025

== ENCOUNTER 2025-05-05 14:50 | Outpatient (CLI) | payer OTHER, SELFPAY ==
[2025-05-05 17:50] LABS: Hematocrit 42.0 % (37-47); Hemoglobin 13.5 g/dL (12.0-15.0); Immature Granulocytes Count 0.010 X10^3/uL (0.0-0.0); Mean Corp Hgb Conc 32.1 g/dL (32-36); Mean Corpuscular Volume 88.4 fL (81-99); Mean Platelet Vol. 10.7 fl (6.2-12.0); NRBC Flagged by Analyzer 0 % (0-5); Platelet Count 366 K/mm3 (150-450); RBC Distribution Width CV 12.9 % (11.6-14.6); RBC Distribution Width SD 41.9 fl (35.1-43.9); Red Blood Count 4.75 M/mm3 (4.2-5.4); White Blood Count 9.9 K/mm3 (4.4-11.0)
[2025-05-05 20:29] LABS: AST(SGOT) 35 U/L (<=31); Alanine Aminotransfer ALT/SGPT 59 U/L (<=34); Albumin, Serum 4.3 g/dL (3.4-4.8); Alkaline Phosphatase 83 U/L (35-104); Anion Gap 16 (5-15); BUN 15 mg/dL (4-19); BUN/Creat Ratio 19.9 RATIO (10-20); Calcium,Total 9.7 mg/dL (7.6-11.0); Carbon Dioxide 23.1 mmol/L (21.0-32.0); Chloride 102 mmol/L (98-108); Cholesterol 129 mg/dL (<=200); Globulin 2.5 g/dL (2.2-4.2); Glucose 156 mg/dL (70-99); Low Density Lipoprotein Calc. 46 mg/dL; Potassium 4.1 mmol/L (3.3-5.1); Triglycerides 130 mg/dL; Very Low Density Lipoprotein 26 mg/dL (5-40); cholesterol:hdl ratio screen 2.28
[2025-05-05 20:30] LABS: Vitamin D,25 Hydroxy 20.5 ng/mL (30-100)
== END 2025-05-05 23:59 | disposition home or self-care (01) ==
LOC: MFPLAB 14:51
PROVIDERS: PCP Family Medicine; Visit Provider Family Medicine
DX: E11.69 Type 2 diabetes mellitus with other specified complication (principal); E11.21 Type 2 diabetes mellitus with diabetic nephropathy; E55.9 Vitamin D deficiency, unspecified
CPT/HCPCS: 36415; 80053; 80061; 82306; 83036; 85025